=== PATIENT | female | born 1940 | race Caucasian/White ===

== ENCOUNTER 2018-03-08 16:29 | Emergency (ER) | payer MEDICARE ==
--- NOTE | 2018-03-08 17:23 | RADIOLOGY REPORT (SQ) ---
EXAM DESCRIPTION: CT HEAD WITHOUT COMPLETED DATE/TIME: 03/08/2018 5:05 pm REASON FOR STUDY: Fall--facial injury . Right cheek laceration and right eye pain. Patient states that she fell into a piece of furniture. COMPARISON: CT head 07/15/2015. TECHNIQUE: Axial images acquired through the brain without intravenous contrast. Images reviewed wi th bone, brain and subdural windows. Images stored on PACS. All CT scanners at this facility use dose modulation, iterative reconstruction, and/or weight based d osing when appropriate to reduce radiation dose to as low as reasonably achievable (ALARA). [facility]: Dose Right [facility]: CareDose [facility]: Dose Right [facility]: Teradose 4D [facility]: [employer] RADIATION DOSE: CT Rad equipment meets quality standard of care and radiation dose reduction techniq ues were employed. CTDIvol: 53.2 mGy. DLP: 1017 mGy-cm. mGy. LIMITATIONS: None. FINDINGS: VENTRICLES: Mildly prominent, probably representing parenchymal volume loss. CEREBRUM: No mass effect. No hemorrhage. No midline shift. Normal hearn/white matter differentiatio n. No evidence for acute territorial infarction. CEREBELLUM: No mass effect. No hemorrhage. No alteration of density. No evidence for acute infarct ion. EXTRAAXIAL SPACES: No fluid collections. ORBITS AND GLOBE: Symmetrical contour of the globes. The bony orbits appear intact. CALVARIUM: No depressed skull fracture. PARANASAL SINUSES: No air-fluid level. SOFT TISSUES: Soft tissue hematoma at the scalp overlying the right frontal bone. Small amount of hernandez bcutaneous emphysema anterior to the right maxillary sinus. IMPRESSION: Scalp hematoma at the right frontal bone with no underlying depressed calvarial fracture or acute intracranial hemorrhage. Small amount of subcutaneous emphysema anterior to the right maxi llary sinus, probably corresponding to known laceration. EVIDENCE OF ACUTE STROKE: NO. COMMENT: Quality ID # 436: Final reports with documentation of one or more dose reduction techniques (e.g., Automated exposure control, adjustment of the mA and/or kV according to patient size, use of iterative reconstruction technique) TECHNICAL DOCUMENTATION: JOB ID: [id number] [place]-[id number] 2010 [employer]- All Rights Reserved Reading location - IP/workstation name: [email or web address]
--- NOTE | 2018-03-08 17:28 | RADIOLOGY REPORT (SQ) ---
EXAM DESCRIPTION: CT CERVICAL SPINE WITHOUT COMPLETED DATE/TIME: 03/08/2018 5:05 pm REASON FOR STUDY: Fall--facial injury . Patient states that she fell into a piece of furniture. COMPARISON: None. TECHNIQUE: Axial images acquired through the cervical spine without intravenous contrast. Images re viewed with lung, soft tissue and bone windows. Reconstructed coronal and sagittal MPR images review ed. Images stored on PACS. All CT scanners at this facility use dose modulation, iterative reconstruction, and/or weight based d osing when appropriate to reduce radiation dose to as low as reasonably achievable (ALARA). [facility]: Dose Right [facility]: CareDose [facility]: Dose Right [facility]: Teradose 4D [facility]: [employer] RADIATION DOSE: CT Rad equipment meets quality standard of care and radiation dose reduction techniq ues were employed. CTDIvol: 8.4 mGy. DLP: 172 mGy-cm. mGy. LIMITATIONS: None. FINDINGS: ALIGNMENT: There is mild anterolisthesis of C3 on C4 and mild retrolisthesis of C4 on C5 a nd of C5 on C6. MINERALIZATION: Osteopenia. VERTEBRAL BODIES: No fractures or dislocation. DISCS: Multilevel disc space narrowing with osteophytes. FACETS, LATERAL MASSES, POSTERIOR ELEMENTS: Facet arthropathy. No fractures. No dislocation. No ac damion findings. HARDWARE: None in the spine. VISUALIZED RIBS: No fractures. LUNG APICES AND SOFT TISSUES: No significant or acute findings. IMPRESSION: Multilevel degenerative changes within the cervical spine with no evidence for acute fra cture. TECHNICAL DOCUMENTATION: JOB ID: [id number] Quality ID # [id number]: Final reports with documentation of one or more dose reduction techniques (e.g., Au tomated exposure control, adjustment of the mA and/or kV according to patient size, use of iterative reconstruction technique) 2010 [employer]- All Rights Reserved Reading location - IP/workstation name: [email or web address]
--- NOTE | 2018-03-08 17:47 | ER Document Report ---
ED Fall - General Mode of Arrival: Medic Information source: Patient TRAVEL OUTSIDE OF THE [place] 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 Patient states her right leg has been weak lately and she got her right foot caught in a magazine martinez, tripped and fell on her right elbow and hit the right side of her head twice. Patient states she previously fell 2 weeks ago due to her right leg being weak although she did not present to an emergency department. Patient also complains upper back and neck pain. She states that she normally has upper back and neck pain due to her scoliosis. Patient is currently on Xarelto. (CECILIA GARCIA) The patient did bring a bag of her medications with her. I looked through the bag and she neglected to tell me about the Ambien that she takes, or the [place] 10 mg 4 times daily that she takes on a chronic basis. ( DAO CHAN) - Related data Allergies/Adverse Reactions: aspirin [Aspirin] Allergy (Verified 10/16/12 10:57) salazar stomach codeine [Codeine] Allergy (Verified 10/16/12 10:57) itching erythromycin base [Erythromycin Base] Allergy (Verified 10/16/12 10:57) abd. pain Past Medical History - General Information source: Patient - Social History Smoking Status: Never Smoker Chew tobacco use (# tins/day): No Frequency of alcohol use: Rare Drug Abuse: None Family History: Reviewed & Not Pertinent Patient has suicidal ideation: No Patient has homicidal ideation: No - Past Medical History Cardiac Medical History: Reports: Hx Hypertension Malignancy Medical History: Reports: Hx Breast Cancer - Last chemo and radiation done in 2011 GI Medical History: Reports: Hx Gastroesophageal Reflux Disease Past Surgical History: Reports: Hx Mastectomy, Other - Right and Left Lumpectomy. 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 <CECILIA GARCIA - Last Filed: 03/08/18 17:59> EENT Medical History: Reports: Other - Glaucoma Musculoskeltal Medical History: Reports Hx Arthritis, Reports Other - Chronic pain to the neck & thoracic spine which she attributes to scoliosis <DAO CHAN - Last Filed: 03/08/18 19:32> Review of Systems - Review of Systems Constitutional: No symptoms reported EENT: See HPI, Eye pain Cardiovascular: No symptoms reported Respiratory: No symptoms reported Gastrointestinal: No symptoms reported Genitourinary: No symptoms reported Female Genitourinary: No symptoms reported Musculoskeletal: See HPI, Back pain Skin: No symptoms reported Hematologic/Lymphatic: No symptoms reported Neurological/Psychological: No symptoms reported -: Yes All other systems reviewed and negative <CECILIA GARCIA - Last Filed: 03/08/18 17:59> Physical Exam - General General appearance: Appears well, Alert In distress: None - HEENT Head: Normocephalic, Other - 2 cm laceration on her right cheek below the zygomatic arch. Zygomatic arch contains bruising and swelling. Right forehead above the eye contains a large hematoma. Eyes: Normal Conjunctiva: Normal Neck: Normal - Respiratory Respiratory status: No respiratory distress Chest status: Nontender Breath sounds: Normal Chest palpation: Normal - Cardiovascular Rhythm: Regular Heart sounds: Normal auscultation Murmur: Yes Friction rub: No Gallop: None auscultated - Abdominal Inspection: Normal Distension: No distension Bowel sounds: Normal Tenderness: Nontender Organomegaly: No organomegaly - Back Back: Normal - Extremities General upper extremity: Normal ROM General lower extremity: Normal ROM Elbow: Abrasion - Abrasion on the right elbow. - Neurological Neuro grossly intact: Yes Cognition: Normal Orientation: AAOx4 [place] Coma Scale Eye Opening: Spontaneous Tanner Coma Scale Verbal: Oriented Tanner Coma Scale Motor: Obeys Commands Tanner Coma Scale Total: 15 Speech: Normal - Psychological Associated symptoms: Normal affect, Normal mood - Skin Skin Temperature: Warm Skin Moisture: Dry Skin Color: Normal <CECILIA GARCIA - Last Filed: 03/08/18 17:59> - HEENT Eyes: No: Normal Conjunctiva: No: Normal Cornea: Flourescein stain uptake, Other - There is a very superficial small abrasion on the upper edge of the cornea just lateral to the midline. Above that area there is some irritated conjunctiva that appears to have been traumatized. There are no lacerations, punctures, or globe content protrusion. Extraocular movements intact: Yes <DAO CHAN - Last Filed: 03/08/18 19:32> - Vital signs Vitals: Temp Pulse Resp BP Pulse Ox 98.2 F 60 17 149/70 H 98 03/08/18 16:32 03/08/18 16:32 03/08/18 16:32 03/08/18 16:32 03/08/18 16:32 Course <RADHACECILIA - Last Filed: 03/08/18 17:59> - Diagnostic Test Radiology reviewed: Image reviewed, Reports reviewed - CT scan of the cervical spine shows degenerative changes without acute injury. CT scan of the head shows large hematoma in the right frontal scalp region. There is some swelling over the zygomatic region on the right and there is some subcutaneous air corresponding to the laceration over the right cheek. There are no orbital or zygomatic fractures noted. <DAO CHAN - Last Filed: 03/08/18 19:32> - Re-evaluation Re-evalutation: 03/08/18 19:31 The patient has a family member and a friend here with her at discharge and they understand the instructions about the ketorolac drop that is being dispensed the place in the right eye 1 drop every 4 hours, and a prescription for the drops will be furnished in order to continue the treatment for the next 2-3 days. (DAO CHAN) - Vital Signs Vital signs: Temp Pulse Resp BP Pulse Ox 98.2 F 60 17 149/70 H 98 03/08/18 16:32 03/08/18 16:32 03/08/18 16:32 03/08/18 16:32 03/08/18 16:32 Procedures - Eye Procedure Right Time completed: 18:40 Eye Irrigated w/ Saline (ccs): 20 Alcaine Drops Administered: Yes Acular drops administered: Right Fluorescein applied: Right Slit lamp used: No Eyes picture: 1 - Small very superficial abrasion with minimal fluorescein uptake - Laceration/Wound Repair Right Mid- Face Time completed: 19:15 Wound length (cm): 2 Wound's Depth, Shape: Linear, Irregular, Contused tissue, Other - Into the subcutaneous fat Laceration pre-procedure: Sterile drapes applied, Shur-Clens applied Anesthetic type: 1% Lidocaine w/epi Volume Anesthetic (mLs): 3 Wound explored: Clean, No foreign body removed Irrigated w/ Saline (mLs): 30 Wound Debrided: Minimal Wound Repaired With: Sutures Suture Size/Type: 5:0 Number of Sutures: 6 Layer Closure?: No Post-procedure wound care: Other - Bacitracin ointment Post-procedure NV exam normal: Yes Complications: No <DAO CHAN - Last Filed: 03/08/18 19:32> Discharge <CECILIA GARCIA - Last Filed: 03/08/18 17:59> <DAO CHAN - Last Filed: 03/08/18 19:32> - Discharge Clinical Impression: Fall Qualifiers: Encounter type: initial encounter Qualified Code(s): W19.XXXA - Unspecified fall, initial encounter Facial laceration Qualifiers: Encounter type: initial encounter Qualified Code(s): S01.81XA - Laceration without foreign body of other part of head, initial encounter Corneal abrasion Qualifiers: Encounter type: initial encounter Laterality: right Qualified Code(s): S05.01XA - Injury of conjunctiva and corneal abrasion without foreign body, right eye, initial encounter Forehead contusion Qualifiers: Encounter type: initial encounter Qualified Code(s): S00.83XA - Contusion of other part of head, initial encounter Condition: Stable Disposition: HOME, SELF-CARE Additional Instructions: Corneal Abrasion: You have a corneal abrasion, a scratch on the surface of the eye. The pain of a corneal abrasion feels like a sharp particle in the eye. Usually, antibiotics are placed in the eye to prevent infection. Occasionally, medication will be placed in the eye to dilate the pupil. This is done to relieve some of your discomfort and is only temporary. Pain medication may be required. Don't drive or operate machinery until you have the use of both your eyes. The abrasion usually is healed in one or two days. A follow-up examination to confirm healing is recommended. Call the doctor or return at once if you develop severe pain, decreasing vision, eye swelling, or purulent drainage. Facial Laceration: A laceration on the face usually heals quickly. Our treatment goal will be to avoid an unsightly scar or stitch-flowers. Your cut has been closed with the best techniques to avoid scarring, but a great deal depends on how well you protect the laceration -- and on your inherited tendency to scar. As facial cuts are usually caused by a blunt injury, it's usually best to rest for a day to avoid swelling. Do not allow any bumping or rubbing of the area. Keep the stitches dry. Follow the treatment plan the doctor has discussed with you and DO NOT DELAY getting the stitches out. Once stitches are removed, continue to protect the area from trauma and sunlight (use a sunscreen) for about six months. If any signs of infection occur (swelling, redness, increasing tenderness, red streaks, tender lumps in the neck or near the ear on the side of the laceration, or fever), see the doctor immediately. Contusion of Forehead and Face Your injury has resulted in a contusion -- a crushing of the deep tissues. No injury to important structures was detected during the physician's exam. Contusions vary in the amount of pain they cause, and in the length of time required for healing. Typically, the area will become bruised, and will remain painful to touch for two or three weeks. However, most patients are back to working and playing within a few days. After the initial period of rest and cold-packs, your symptoms (together with the doctor's recommendations) will determine how rapidly you can get back to full activity. Usually this means "do what feels okay, but don't do things that hurt." If re-examination was recommended, it's important to follow up as instructed. Call the doctor or return any time if pain increases, if swelling becomes severe, if you develop numbness or weakness in an injured extremity, or if any other alarming symptoms occur. Use ice packs to your forehead and face to help reduce the swelling. Keep the laceration clean and dressed with Neosporin or bacitracin ointment. Put the ketorolac eyedrops: 1 drop into the right eye every 4 hours for the next few days. Follow-up with your doctor this week for recheck. RETURN TO THE EMERGENCY ROOM IF ANY NEW OR WORSENING SYMPTOMS. Prescriptions: Ketorolac Tromethamine [Acular] 1 drop OD Q4 #5 ml Referrals: MARGAUX NAVA MD [Primary Care Provider] - Follow up in 3-5 days Scribe Attestation: 03/08/18 19:15 I personally performed the services described in the documentation, reviewed and edited the documentation which was dictated to the scribe in my presence, and it accurately records my words and actions. (DAO CHAN) Scribe Documentation - Scribe Written by Bailey:: Bailey Smith, 03/08/2018 17:51 acting as scribe for :: Abelardo <CECILIA GARCIA - Last Filed: 03/08/18 17:59>
[2018-03-08] MEDS ORDERED: LIDOCAINE 1%/EPINEPHRINE INJ 20 ML VIAL INJ ONE (17:53)
[2018-03-08] MEDS ORDERED: TETRACAINE HCL 0.5% OPH SOLN 2 ML OD ONE (17:55)
[2018-03-08] MEDS ORDERED: HYDROCODONE/ACETAMINOPHEN 5-325 MG TABLET PO ONE (18:27)
[2018-03-08] MEDS ORDERED: KETOROLAC TROMETHAMINE 0.45% 4 DROP/0.4 ML DROPERETTE OD ONE (18:42)
[2018-03-08 22:21] VITALS: BP 175/81
== END 2018-03-08 19:36 | disposition home or self-care (01) ==
LOC: ER 16:29
PROC: 0HQ1XZZ Repair Face Skin, External Approach (ICD-10-PCS; principal; 2018-03-08)
DX: S05.01XA Injury of conjunctiva and corneal abrasion without foreign body, right eye, initial encounter (principal); S01.411A Laceration without foreign body of right cheek and temporomandibular area, initial encounter; H57.11 Ocular pain, right eye; R51 Headache; R53.1 Weakness; M54.6 Pain in thoracic spine; M54.2 Cervicalgia; M41.9 Scoliosis, unspecified; W01.0XXA Fall on same level from slipping, tripping and stumbling without subsequent striking against object, initial encounter; I10 Essential (primary) hypertension; Z79.01 Long term (current) use of anticoagulants; Z86.718 Personal history of other venous thrombosis and embolism; Z79.899 Other long term (current) drug therapy
CPT/HCPCS: 99283; 70450; 72125; 12011; A9270 ×2; J3490

== ENCOUNTER 2018-03-24 19:28 | Emergency (ER) | payer MEDICARE ==
--- NOTE | 2018-03-24 20:46 | RADIOLOGY REPORT (SQ) ---
EXAM DESCRIPTION: CT CERVICAL SPINE WITHOUT; CT HEAD WITHOUT COMPLETED DATE/TIME: 03/24/2018 8:27 pm REASON FOR STUDY: fall COMPARISON: See below. TECHNIQUE: Axial images acquired through the brain and cervical spine without intravenous contrast. Images reviewed with brain, subdural, lung, soft tissue and bone windows. Reconstructed coronal and sagittal MPR images reviewed. Images stored on PACS. All CT scanners at this facility use dose modulation, iterative reconstruction, and/or weight based d osing when appropriate to reduce radiation dose to as low as reasonably achievable (ALARA). [facility]: Dose Right [facility]: CareDose [facility]: Dose Right [facility]: Teradose 4D [facility]: [employer] RADIATION DOSE: CT Rad equipment meets quality standard of care and radiation dose reduction techniq ues were employed. CTDIvol: 11.0 mGy. DLP: 260 mGy-cm.; CT Rad equipment meets quality standard of ca re and radiation dose reduction techniques were employed. CTDIvol: 48.6 mGy. DLP: 880 mGy-cm. mGy. LIMITATIONS: None. FINDINGS: Brain: 03/08/2018 comparison. Prominent right frontal scalp swelling and hematoma, progres sive or recurrent compared to prior. This now measures almost 4 cm transverse dimension. No underly ing fracture. No intracranial hemorrhage. No hydrocephalus. Cervical spine: 03/08/2018 prior. Mild chronic degenerative anterolisthesis at C3-4. Multilevel disc disease below this. Multilevel facet arthropathy. Osteopenia. No fracture. Clear lung apices. IMPRESSION: 1. Right frontal soft tissue scalp hematoma. This may be a recurrent hematoma which is larger compared to 03/08/2016, presumably related to repeat injury to the same area. No underlying sku ll fracture or intracranial hemorrhage. 2. Cervical spondylosis without fracture. TECHNICAL DOCUMENTATION: JOB ID: [id number] Quality ID # [id number]: Final reports with documentation of one or more dose reduction techniques (e.g., Au tomated exposure control, adjustment of the mA and/or kV according to patient size, use of iterative reconstruction technique) 2010 [employer]- All Rights Reserved Reading location - IP/workstation name: [email or web address]
--- NOTE | 2018-03-24 20:55 | ER Document Report ---
ED General - General Chief Complaint: Fall Stated Complaint: FALL Time Seen by Provider: 03/24/18 19:59 Mode of Arrival: Medic Information source: Patient Notes: 77-year-old female history of multiple falls including recent fall with traumatic hematoma of the right frontal. Patient notes that she fell again striking her right frontal aspect. She denies any numbness weakness denies any loss of bowel or bladder function admits to headache. Patient has a history of cervical fracture notes mild cervical tenderness TRAVEL OUTSIDE OF THE [place] IN LAST 30 DAYS: No - HPI Onset: Just prior to arrival Onset/Duration: Sudden Quality of pain: Achy Severity: Mild Pain Level: 1 Associated symptoms: Headache Exacerbated by: Denies Relieved by: Denies Similar symptoms previously: Yes Recently seen / treated by doctor: Yes - Related Data Allergies/Adverse Reactions: aspirin [Aspirin] Allergy (Verified 10/16/12 10:57) salazar stomach codeine [Codeine] Allergy (Verified 10/16/12 10:57) itching erythromycin base [Erythromycin Base] Allergy (Verified 10/16/12 10:57) abd. pain Past Medical History - Social History Smoking Status: Never Smoker Cigarette use (# per day): No Chew tobacco use (# tins/day): No Smoking Education Provided: No Frequency of alcohol use: None Drug Abuse: None Family History: Reviewed & Not Pertinent Patient has suicidal ideation: No Patient has homicidal ideation: No - Past Medical History Cardiac Medical History: Reports: Hx Hypertension Renal/ Medical History: Denies: Hx Peritoneal Dialysis Malignancy Medical History: Reports: Hx Breast Cancer - Last chemo and radiation done in 2011 GI Medical History: Reports: Hx Gastroesophageal Reflux Disease Musculoskeletal Medical History: Reports Hx Arthritis Psychiatric Medical History: Reports: Hx Depression - +anxiety Past Surgical History: Reports: Hx Breast Surgery - cancer related, lympn node removal, Hx Mastectomy, Other - Right and Left Lumpectomy. 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 Review of Systems - Review of Systems Notes: REVIEW OF SYSTEMS: CONSTITUTIONAL : Denies fever, chills, or sweats. Denies recent illness. EENT: Denies eye, ear, throat, or mouth pain or symptoms. Denies nasal or sinus congestion or discharge. Denies throat, tongue, or mouth swelling or difficulty swallowing. CARDIOVASCULAR: Denies chest pain. Denies palpitations or racing or irregular heart beat. Denies ankle edema. RESPIRATORY: Denies cough, cold, or chest congestion. Denies shortness of breath, difficulty breathing, or wheezing. GASTROINTESTINAL: Denies abdominal pain or distention. Denies nausea, vomiting , or diarrhea. Denies blood in vomitus, stools, or per rectum. Denies black, tarry stools. Denies constipation. GENITOURINARY: Denies difficulty urinating, painful urination, burning, frequency, blood in urine, or discharge. FEMALE GENITOURINARY: Denies vaginal bleeding, heavy or abnormal periods, irregular periods. Denies vaginal discharge or odor. MUSCULOSKELETAL: Denies back or neck pain or stiffness. Denies joint pain or swelling. SKIN: Denies rash, lesions or sores. HEMATOLOGIC : Admits to frontal head bruising LYMPHATIC: Denies swollen, enlarged glands. NEUROLOGICAL: Admits to chronic falls head injury PSYCHIATRIC: Denies anxiety or stress. Denies depression, suicidal ideation, or homicidal ideation. ALL OTHER SYSTEMS REVIEWED AND NEGATIVE. PHYSICAL EXAMINATION: GENERAL: Well-appearing, well-nourished and in no acute distress. HEAD: Large right frontal hematoma EYES: Pupils equal round and reactive to light, extraocular movements intact, conjunctiva are normal. ENT: Nares patent, oropharynx clear without exudates. Moist mucous membranes. NECK: Normal range of motion, supple without lymphadenopathy LUNGS: Breath sounds clear to auscultation bilaterally and equal. No wheezes rales or rhonchi. HEART: Regular rate and rhythm without murmurs ABDOMEN: Soft, nontender, nondistended abdomen. No guarding, no rebound. No masses appreciated. Female : deferred Musculoskeletal: Normal range of motion, no pitting or edema. No cyanosis. NEUROLOGICAL: Cranial nerves grossly intact. Normal speech, normal gait. Normal sensory, motor exams PSYCH: Normal mood, normal affect. SKIN: Large hematoma of the right frontal aspect acute on chronic Dictation was performed using [employer] voice recognition software Physical Exam - Vital signs Vitals: Temp Pulse Resp BP Pulse Ox 98.1 F 60 14 142/68 H 99 03/24/18 19:52 03/24/18 19:52 03/24/18 19:52 03/24/18 19:52 03/24/18 19:52 Course - Re-evaluation Re-evalutation: 03/24/18 20:54 Patient emergently sent for CT head and neck she refused to wear c-collar, she understood risks and benefits, CT imaging did note worsening hematoma otherwise she looks well patient given pain control Patient is a significant fall risk I explained this to her she states she understands risks and benefits have been discussed After performing a Medical Screening Examination, I estimate there is LOW risk for INCRANIAL HEMORRHAGE thus I consider the discharge disposition reasonable. I have reevaluated this patient multiple times and no significant life threatening changes are noted. The patient and I have discussed the diagnosis and risks, and we agree with discharging home with close follow-up with the understanding that symptoms and presentations can change. We also discussed returning to the Emergency Department immediately if new or worsening symptoms occur. We have discussed the symptoms which are most concerning (e.g., changing or worsening symptoms, new numbness or weakness, vomiting, fever) that necessitate immediate return. - Vital Signs Vital signs: Temp Pulse Resp BP Pulse Ox 98.1 F 60 14 142/68 H 99 03/24/18 19:52 03/24/18 19:52 03/24/18 19:52 03/24/18 19:52 03/24/18 19:52 - Diagnostic Test Radiology reviewed: Image reviewed, Reports reviewed Discharge - Discharge Clinical Impression: Fall Qualifiers: Encounter type: initial encounter Qualified Code(s): W19.XXXA - Unspecified fall, initial encounter Hematoma of frontal scalp Qualifiers: Encounter type: initial encounter Qualified Code(s): S00.03XA - Contusion of scalp, initial encounter Condition: Stable Disposition: HOME, SELF-CARE Instructions: Head Injury Precautions ([facility]) Referrals: MARGAUX NAVA MD [Primary Care Provider] - Follow up tomorrow
[2018-03-24] MEDS ORDERED: DIPHENHYDRAMINE HCL 50 MG CAPSULE PO ONE (21:13)
[2018-03-24] MEDS ORDERED: PROCHLORPERAZINE MALEATE 10 MG TABLET PO ONE (21:13)
[2018-03-24 22:36] VITALS: BP 173/89
== END 2018-03-24 22:36 | disposition home or self-care (01) ==
LOC: ER 19:28
DX: S00.03XA Contusion of scalp, initial encounter (principal); W19.XXXA Unspecified fall, initial encounter; Z91.81 History of falling; Z88.3 Allergy status to other anti-infective agents; Z88.6 Allergy status to analgesic agent; I10 Essential (primary) hypertension; Z85.3 Personal history of malignant neoplasm of breast
CPT/HCPCS: 99284; 70450; 72125; L0120; A9270; S0183

== ENCOUNTER 2018-05-12 14:49 | Inpatient (IN) | payer MEDICARE ==
[2018-05-12] MEDS ORDERED: NORMAL SALINE 1000 ML 1,000 ML IV ONE (15:17)
--- NOTE | 2018-05-12 15:19 | ER Document Report ---
ED Medical Screen (RME) - General Chief Complaint: Rectal Bleeding Stated Complaint: BLOOD CLOTS IN STOOL TRAVEL OUTSIDE OF THE [place] IN LAST 30 DAYS: No - HPI Notes: 05/12/18 15:19 Patient is a 77-year-old female with a history of hypertension, previous breast cancer and status post lumpectomy, arthritis, scoliosis who presents to the ED complaining of rectal bleeding that began early this morning around 0200. Patient states that she has had dark black stool previously, but is now developed into this. No history of alcohol abuse. She has not had any rectal pain associated. Denies any headache, fever, URI, sore throat, chest pain, palpitations, syncope, cough, shortness of breath, wheeze, dyspnea, abdominal pain, nausea/vomiting/diarrhea, urinary retention, dysuria, hematuria, loss of control of bowel or bladder, numbness/tingling, saddle anesthesia, muscle paralysis, or rash. I have treated and performed a rapid initial assessment of this patient. A comprehensive ED assessment and evaluation of the patient, analysis of test results and completion of medical decision making process will be conducted by additional ED providers. PHYSICAL EXAMINATION: GENERAL: Well-appearing, well-nourished and in no acute distress. A&Ox4. Answers questions appropriately. LUNGS: Breath sounds clear to auscultation bilaterally and equal. No wheezes rales or rhonchi. HEART: Regular rate and rhythm without murmurs, rubs, gallops. ABDOMEN: Soft, nondistended abdomen. No guarding, no rebound. Normal bowel sounds present. No CVA tenderness bilaterally. Extremities: No cyanosis, clubbing, or edema b/l. PSYCH: Normal mood, normal affect. Skin: mild pallor - Related Data Allergies/Adverse Reactions: aspirin [Aspirin] Allergy (Verified 05/12/18 15:15) salazar stomach codeine [Codeine] Allergy (Verified 05/12/18 15:15) itching erythromycin base [Erythromycin Base] Allergy (Verified 05/12/18 15:15) abd. pain Penicillins Allergy (Verified 05/12/18 15:15) Past Medical History - Social History Chew tobacco use (# tins/day): No Frequency of alcohol use: None Drug Abuse: None - Past Medical History Cardiac Medical History: Reports: Hx Hypertension Renal/ Medical History: Denies: Hx Peritoneal Dialysis Malignancy Medical History: Reports: Hx Breast Cancer - Last chemo and radiation done in 2011 GI Medical History: Reports: Hx Gastroesophageal Reflux Disease Musculoskeltal Medical History: Reports Hx Arthritis Psychiatric Medical History: Reports: Hx Depression - +anxiety Past Surgical History: Reports: Hx Breast Surgery - cancer related, lympn node removal, Hx Mastectomy, Other - Right and Left Lumpectomy. 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 Physical Exam - Vital signs Vitals: Temp Pulse Resp BP Pulse Ox 97.8 F 92 16 124/77 99 05/12/18 15:00 05/12/18 15:00 05/12/18 15:00 05/12/18 15:00 05/12/18 15:00 Course - Vital Signs Vital signs: Temp Pulse Resp BP Pulse Ox 97.8 F 92 16 124/77 99 05/12/18 15:00 05/12/18 15:00 05/12/18 15:00 05/12/18 15:00 05/12/18 15:00 Doctor's Discharge - Discharge Referrals: MARGAUX NAVA MD [Primary Care Provider] - Follow up as needed
[2018-05-12] MEDS ORDERED: PANTOPRAZOLE SODIUM 40 MG VIAL IV ONE ×2 (17:08→19:15)
[2018-05-12 17:18] LABS: ABSOLUTE BASOPHILS # (AUTO) 0.1 10^3/uL (0.0-0.2); ABSOLUTE EOSINOPHILS # (AUTO) 0.1 10^3/uL (0.0-0.6); ABSOLUTE LYMPHOCYTES (AUTO) 1.3 10^3/uL (0.5-4.7); ABSOLUTE MONOCYTES (AUTO) 0.7 10^3/uL (0.1-1.4); ABSOLUTE NEUT (AUTO) 5.9 10^3/uL (1.7-8.2); BASOPHILS % (AUTO) 0.9 % (0-2); EOSINOPHILS % (AUTO) 1.2 % (0-6); HEMATOCRIT 33.1 % (36.0-47.0); HEMOGLOBIN 11.3 g/dL (12.0-15.5); MEAN CORPUSCULAR HGB CONC 34.2 g/dL (32.0-36.0); MEAN CORPUSCULAR VOLUME 93 fl (80-97); MONOCYTES % (AUTO) 8.9 % (3-13); PLATELET COUNT 442 10^3/uL (150-450); RED BLOOD COUNT 3.55 10^6/uL (3.72-5.28); RED CELL DISTRIBUTION WIDTH 14.8 % (11.5-14.0); TOTAL CELLS COUNTED % (AUTO) 100 %
[2018-05-12 17:39] LABS: ALANINE AMINOTRANSFERASE 14 U/L (9-52); ALBUMIN 4.8 g/dL (3.5-5.0); ALKALINE PHOSPHATASE 51 U/L (38-126); ANION GAP 14 (5-19); ASPARTATE AMINO TRANSFERASE 35 U/L (14-36); BILIRUBIN,DIRECT 0.3 mg/dL (0.0-0.4); BILIRUBIN,TOTAL 0.5 mg/dL (0.2-1.3); BLOOD UREA NITROGEN 27 mg/dL (7-20); CALCIUM 9.3 mg/dL (8.4-10.2); CARBON DIOXIDE 25 mmol/L (22-30); CHLORIDE 100 mmol/L (98-107); GLUCOSE 109 mg/dL (75-110); POTASSIUM 4.2 mmol/L (3.6-5.0); SODIUM 138.7 mmol/L (137-145); TOTAL PROTEIN 8.1 g/dL (6.3-8.2)
--- NOTE | 2018-05-12 17:56 | ER Document Report ---
ED General - General Chief Complaint: Rectal Bleeding Stated Complaint: BLOOD CLOTS IN STOOL Time Seen by Provider: 05/12/18 15:23 TRAVEL OUTSIDE OF THE [place] IN LAST 30 DAYS: No - HPI Notes: 77-year-old female presents with about 4 episodes of bright red blood per rectum today. Started with loose bowel movement this morning and blood after the bowel movement with dark stools. She has some mild cramping abdominal pain. Denies any lightheadedness or dizziness. No chest pain or shortness of breath. She is on Xarelto for left arm DVT. No similar symptoms in the past. Had a normal colonoscopy about 2 years ago. Has had a hemorrhoid removed by her primary care physician several years ago. - Related Data Allergies/Adverse Reactions: aspirin [Aspirin] Allergy (Verified 05/12/18 15:15) salazar stomach codeine [Codeine] Allergy (Verified 05/12/18 15:15) itching erythromycin base [Erythromycin Base] Allergy (Verified 05/12/18 15:15) abd. pain Penicillins Allergy (Verified 05/12/18 15:15) Past Medical History - Social History Smoking Status: Never Smoker Chew tobacco use (# tins/day): No Frequency of alcohol use: None Drug Abuse: None Family History: Reviewed & Not Pertinent Patient has suicidal ideation: No Patient has homicidal ideation: No - Past Medical History Cardiac Medical History: Reports: Hx Hypertension Renal/ Medical History: Denies: Hx Peritoneal Dialysis Malignancy Medical History: Reports: Hx Breast Cancer - Last chemo and radiation done in 2011 GI Medical History: Reports: Hx Gastroesophageal Reflux Disease Musculoskeletal Medical History: Reports Hx Arthritis Psychiatric Medical History: Reports: Hx Depression - +anxiety Past Surgical History: Reports: Hx Breast Surgery - cancer related, lympn node removal, Hx Mastectomy, Other - Right and Left Lumpectomy. 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 Review of Systems - Review of Systems Notes: Constitutional: Negative for fever. HENT: Negative for sore throat. Eyes: Negative for visual changes. Cardiovascular: Negative for chest pain. Respiratory: Negative for shortness of breath. Gastrointestinal: Positive for abdominal pain, negative for vomiting or diarrhea , positive for rectal bleeding. Genitourinary: Negative for dysuria. Musculoskeletal: Negative for back pain. Skin: Negative for rash. Neurological: Negative for headaches, weakness or numbness. 10 point ROS negative except as marked above and in HPI. Physical Exam - Vital signs Vitals: Temp Pulse Resp BP Pulse Ox 97.8 F 92 16 124/77 99 05/12/18 15:00 05/12/18 15:00 05/12/18 15:00 05/12/18 15:00 05/12/18 15:00 - Notes Notes: PHYSICAL EXAMINATION: GENERAL: Well-appearing, well-nourished and in no acute distress. HEAD: Atraumatic, normocephalic. EYES: Pupils equal round and reactive to light, extraocular movements intact, conjunctiva are normal. ENT: nares patent, oropharynx clear without exudates. Moist mucous membranes. NECK: Normal range of motion, supple without lymphadenopathy LUNGS: Breath sounds clear to auscultation bilaterally and equal. No wheezes rales or rhonchi. HEART: Regular rate and rhythm, no chest wall tenderness ABDOMEN: Soft, nontender, normoactive bowel sounds. No guarding, no rebound. No masses appreciated. EXTREMITIES: Normal range of motion, no pitting or edema. No cyanosis. Chronic lymphedema left arm NEUROLOGICAL: Cranial nerves grossly intact. Normal speech, normal gait. Normal sensory and motor exams. PSYCH: Normal mood, normal affect. SKIN: Warm, Dry, normal turgor, no rashes or lesions noted. Course - Re-evaluation Re-evalutation: 05/12/18 17:57 Patient brought in a sample from home of stool which shows dark blood with clots. Hemoglobin slightly low at 11.3. BUN elevated at 27. Given Protonix and fluids. Discussed with Dr. Hankins, surgery if needed for endoscopy. Dr. Montelongo, GI comes body component engineer tomorrow morning. Discussed with hospitalist for admission. Patient updated. Vital signs stable. - Vital Signs Vital signs: Temp Pulse Resp BP Pulse Ox 97.8 F 92 16 124/77 99 05/12/18 15:00 05/12/18 15:00 05/12/18 15:00 05/12/18 15:00 05/12/18 15:00 - Laboratory Result Diagrams: 05/12/18 16:46 05/12/18 16:46 Laboratory results interpreted by me: 05/12/18 05/12/18 16:46 16:46 RBC 3.55 L Hgb 11.3 L Hct 33.1 L RDW 14.8 H BUN 27 H Discharge - Discharge Clinical Impression: GI bleed Qualifiers: GI bleed type/associated pathology: unspecified gastrointestinal hemorrhage type Qualified Code(s): K92.2 - Gastrointestinal hemorrhage, unspecified Disposition: ADMITTED INPATIENT Admitting Provider: Hospitalist Unit Admitted: Medical Floor Referrals: MARGAUX NAVA MD [Primary Care Provider] - Follow up as needed
[2018-05-12] MEDS ORDERED: DEXTROSE 50%-WATER 25 GM/50 ML DISP.SYRIN IV PRN ×2 (18:58)
[2018-05-12] MEDS ORDERED: GLUCAGON,HUMAN RECOMB 1 MG INJ SUBCUT PRN (18:58)
[2018-05-12] MEDS ORDERED: DEXTROSE 40% GEL 15 GM TUBE PO PRN ×2 (18:58)
--- NOTE | 2018-05-12 19:22 | EKG REPORT ---
SEVERITY:- ABNORMAL ECG - ECTOPIC ATRIAL RHYTHM SHORT UT INTERVAL, ACCELERATED AV CONDUCTION LEFT VENTRICULAR HYPERTROPHY : Confirmed by: Tenzin Mccord MD 12-May-2018 19:21:05
[2018-05-12] MEDS ORDERED: LORAZEPAM 1 MG TABLET PO PRN (19:34)
--- NOTE | 2018-05-12 19:40 | PDOC H&P ---
History of Present Illness Admission Date/PCP: 05/12/18 18:21 MARGAUX NAVA MD Patient complains of: BBPR History of Present Illness: KATYA BANKS is a 77 year old female past medical history of diverticulosis, hypertension, hemorrhoid status post resection, left breast cancer in 2001 status post chemo-radiation and lumpectomy, left upper extremity lymphedema due to left breast cancer lumpectomy, left humeral fracture November 2017, left upper extremity DVT post fracture currently on Xarelto,osteoporosis, chronic lower back pain and constipation caused by chronic opiate and muscle relaxant use for low back pain. Pt presents with about 4 episodes of bright red blood per rectum today. Started with loose bowel movement this morning and blood after the bowel movement with dark stools. She has some mild cramping abdominal pain. Denies any lightheadedness or dizziness. She is on Xarelto for left arm DVT. No similar symptoms in the past. Had a normal colonoscopy about 2 years ago. Past Medical History Cardiac Medical History: Reports: Hypertension Malignancy Medical History: Reports: Breast Cancer - Last chemo and radiation done in 2011 GI Medical History: Reports: Gastroesophageal Reflux Disease Musculoskeltal Medical History: Reports: Arthritis Psychiatric Medical History: Reports: Depression - +anxiety Hematology: Denies: Anemia, Sickle Cell Disease Past Surgical History Past Surgical History: Reports: Mastectomy, Other - Right and Left Lumpectomy. 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 Denies: Amputation Social History Smoking Status: Never Smoker Family History Family History: Reviewed & Not Pertinent Parental Family History Reviewed: Yes Children Family History Reviewed: Yes Sibling(s) Family History Reviewed.: Yes Medication/Allergy Home Medications: Clindamycin HCl [Cleocin 150 Mg Capsule] 150 mg PO DAILY 10/16/12 Duloxetine HCl [Cymbalta 30 Mg Capsule.Dr] 30 mg PO 10/16/12 Levothyroxine Sodium [Synthroid 100 Mcg Tablet] 100 mcg PO DAILY 10/16/12 Lorazepam 1 mg PO PRN PRN 10/16/12 Losartan Potassium [Cozaar 50 Mg Tablet] 50 mg PO DAILY 10/16/12 Pantoprazole Sodium [Protonix] 40 mg PO 10/16/12 Pregabalin [Lyrica] 100 mg PO DAILY 10/16/12 Zolpidem Tartrate [Ambien CR 6.25 mg Tablet] 6.25 mg PO DAILY 10/16/12 Meclizine HCl [Antivert] 25 mg PO QID #30 tablet 07/15/15 Ketorolac Tromethamine [Acular] 1 drop OD Q4 #5 ml 03/08/18 Allergies/Adverse Reactions: aspirin [Aspirin] Allergy (Verified 05/12/18 15:15) salazar stomach codeine [Codeine] Allergy (Verified 05/12/18 15:15) itching erythromycin base [Erythromycin Base] Allergy (Verified 05/12/18 15:15) abd. pain Penicillins Allergy (Verified 05/12/18 15:15) Review of Systems Constitutional: ABSENT: chills, fever(s), headache(s), weight gain, weight loss Eyes: ABSENT: visual disturbances Ears: ABSENT: hearing changes Cardiovascular: ABSENT: chest pain, dyspnea on exertion, edema, orthropnea, palpitations Respiratory: ABSENT: cough, hemoptysis Gastrointestinal: PRESENT: as per HPI, abdominal pain, constipation. ABSENT: diarrhea, hematemesis, hematochezia, nausea, vomiting Genitourinary: ABSENT: dysuria, hematuria Musculoskeletal: ABSENT: joint swelling Integumentary: ABSENT: rash, wounds Neurological: ABSENT: abnormal gait, abnormal speech, confusion, dizziness, focal weakness, syncope Psychiatric: ABSENT: anxiety, depression, homidical ideation, suicidal ideation Endocrine: ABSENT: cold intolerance, heat intolerance, polydipsia, polyuria Hematologic/Lymphatic: ABSENT: easy bleeding, easy bruising Physical Exam Vital Signs: Temp Pulse Resp BP Pulse Ox 97.8 F 92 16 124/77 99 05/12/18 15:00 05/12/18 15:00 05/12/18 15:00 05/12/18 15:00 05/12/18 15:00 General appearance: PRESENT: no acute distress, well-developed, well-nourished Head exam: PRESENT: atraumatic, normocephalic Eye exam: PRESENT: conjunctiva pink, EOMI, PERRLA. ABSENT: scleral icterus Ear exam: PRESENT: normal external ear exam Mouth exam: PRESENT: moist, tongue midline Neck exam: ABSENT: carotid bruit, JVD, lymphadenopathy, thyromegaly Respiratory exam: PRESENT: clear to auscultation tiffany. ABSENT: rales, rhonchi, wheezes Cardiovascular exam: PRESENT: RRR. ABSENT: diastolic murmur, rubs, systolic murmur Pulses: PRESENT: normal dorsalis pedis pul Vascular exam: PRESENT: normal capillary refill GI/Abdominal exam: PRESENT: normal bowel sounds, soft. ABSENT: distended, guarding, mass, organolmegaly, rebound, tenderness Rectal exam: PRESENT: deferred Extremities exam: PRESENT: full ROM. ABSENT: calf tenderness, clubbing, pedal edema Neurological exam: PRESENT: alert, awake, oriented to person, oriented to place , oriented to time, oriented to situation, CN II-XII grossly intact. ABSENT: motor sensory deficit Psychiatric exam: PRESENT: appropriate affect, normal mood. ABSENT: homicidal ideation, suicidal ideation Skin exam: PRESENT: dry, intact, warm. ABSENT: cyanosis, rash Assessment & Plan - Diagnosis (1) GI bleed Qualifiers: GI bleed type/associated pathology: unspecified gastrointestinal hemorrhage type Qualified Code(s): K92.2 - Gastrointestinal hemorrhage, unspecified Is this a current diagnosis for this admission?: Yes Plan: Patient has history of diverticulosis, which could possibly be the source of bleeding. Vitals stable. Hemoglobin 11.3. Admit to IMCU for close monitoring. Monitor vitals. Monitor for any active bleeding. Transfuse as needed. Surgery consulted for possible EGD and colonoscopy. N.p.o. after midnight. Started on PPI (2) HTN (hypertension) Is this a current diagnosis for this admission?: Yes Plan: Normotensive,euvolemic. Restart home antihypertensive medications when clinically appropriate (3) History of diverticulosis Is this a current diagnosis for this admission?: Yes Plan: As per problem #1 (4) History of breast cancer in female Is this a current diagnosis for this admission?: Yes Plan: Outpatient oncology follow-up (5) History of DVT (deep vein thrombosis) Is this a current diagnosis for this admission?: Yes Plan: Left upper extremity DVT. Hold Xarelto due to acute GI bleed (6) Constipation Plan: Start on docusate and bisacodyl (7) Chronic lower back pain Is this a current diagnosis for this admission?: Yes Plan: Restart hydrocodone and tizanidine, duloxetine. Physical therapy (8) Lymphedema Plan: Left upper extremity due to complication of breast cancer. Restart clindamycin. Patient states that she has been on chronic clindamycin for lymphedema flare
[2018-05-12 19:43] LABS: APPEARANCE,URINE CLEAR; BILIRUBIN,URINE NEGATIVE (NEGATIVE); COLOR,URINE YELLOW; GLUCOSE, URINE NEGATIVE (NEGATIVE); KETONES,URINE NEGATIVE (NEGATIVE); LEUKOCYTE ESTERASE,URINE NEGATIVE (NEGATIVE); NITRITE,URINE NEGATIVE (NEGATIVE); PROTEIN,URINE NEGATIVE (NEGATIVE); URINE SPECIFIC GRAVITY 1.016; UROBILINOGEN,URINE NEGATIVE mg/dL (<2.0)
[2018-05-12] MEDS ORDERED: ZOLPIDEM TARTRATE 6.25 MG PO SCH (19:45)
[2018-05-12] MEDS: MECLIZINE HCL 25 MG TABLET PO SCH (21:22)
[2018-05-12] MEDS: ZOLPIDEM TARTRATE 5 MG TABLET PO SCH (21:22)
[2018-05-12] MEDS: DULOXETINE HCL 30 MG CAPSULE.DR PO SCH (21:22)
[2018-05-12] MEDS: ATORVASTATIN CALCIUM 20 MG TABLET PO SCH (21:22)
[2018-05-12] MEDS: TIZANIDINE HCL 4 MG TABLET PO SCH (21:22)
[2018-05-12] MEDS: DEXTROSE 5%-NORMAL SALINE 1,000 ML IV PRN (21:36)
[2018-05-13 02:17] LABS: HEMATOCRIT 23.3 % (36.0-47.0); MEAN CORPUSCULAR HGB CONC 34.3 g/dL (32.0-36.0); MEAN CORPUSCULAR VOLUME 94 fl (80-97); PLATELET COUNT 321 10^3/uL (150-450); RED BLOOD COUNT 2.49 10^6/uL (3.72-5.28); RED CELL DISTRIBUTION WIDTH 14.9 % (11.5-14.0); WHITE BLOOD COUNT 8.2 10^3/uL (4.0-10.5)
[2018-05-13] MEDS: HYDROCOD/ACETAMIN 7.5-325 MG/15 ML ORAL SOLN UDCUP PO PRN ×2 (02:41→12:23)
[2018-05-13] MEDS: LEVOTHYROXINE SODIUM 0.1 MG TABLET PO SCH (05:26)
[2018-05-13 05:31] LABS: ABSOLUTE BASOPHILS # (AUTO) 0.1 10^3/uL (0.0-0.2); ABSOLUTE EOSINOPHILS # (AUTO) 0.1 10^3/uL (0.0-0.6); ABSOLUTE LYMPHOCYTES (AUTO) 1.5 10^3/uL (0.5-4.7); ABSOLUTE MONOCYTES (AUTO) 0.7 10^3/uL (0.1-1.4); BASOPHILS % (AUTO) 0.9 % (0-2); EOSINOPHILS % (AUTO) 1.5 % (0-6); HEMATOCRIT 21.2 % (36.0-47.0); LYMPHOCYTES % (AUTO) 20.4 % (13-45); MEAN CORPUSCULAR HGB CONC 34.6 g/dL (32.0-36.0); MEAN CORPUSCULAR VOLUME 92 fl (80-97); PLATELET COUNT 299 10^3/uL (150-450); RED BLOOD COUNT 2.29 10^6/uL (3.72-5.28); RED CELL DISTRIBUTION WIDTH 14.5 % (11.5-14.0); SEGMENTED NEUTROPHILS % (AUTO) 67.2 % (42-78); TOTAL CELLS COUNTED % (AUTO) 100 %; WHITE BLOOD COUNT 7.4 10^3/uL (4.0-10.5)
[2018-05-13 05:34] LABS: HEMOGLOBIN 7.3 g/dL (12.0-15.5)
[2018-05-13 05:35] LABS: ALANINE AMINOTRANSFERASE 24 U/L (9-52); ALBUMIN 2.9 g/dL (3.5-5.0); ALKALINE PHOSPHATASE 37 U/L (38-126); ANION GAP 6 (5-19); ASPARTATE AMINO TRANSFERASE 16 U/L (14-36); BILIRUBIN,DIRECT 0.2 mg/dL (0.0-0.4); BILIRUBIN,TOTAL 0.3 mg/dL (0.2-1.3); BLOOD UREA NITROGEN 23 mg/dL (7-20); CALCIUM 8.2 mg/dL (8.4-10.2); CARBON DIOXIDE 24 mmol/L (22-30); CHLORIDE 108 mmol/L (98-107); GLUCOSE 139 mg/dL (75-110); SODIUM 138.1 mmol/L (137-145); TOTAL PROTEIN 5.1 g/dL (6.3-8.2)
--- NOTE | 2018-05-13 07:07 | Progress Note ---
Provider Note Provider Note: 05/13/18, 9717. I was never contacted about a consultation on this pt. I am going off shift at 0700, and Dr Diggs is covering. Dr. Diggs does not perform endoscopy. If endoscopy is needed, I suggest a gastroenterology consultation. This has been conveyed to the nursing staff.
[2018-05-13] MEDS: PANTOPRAZOLE SODIUM 40 MG VIAL IV SCH (09:42)
[2018-05-13] MEDS: DULOXETINE HCL 30 MG CAPSULE.DR PO SCH ×2 (09:42→22:18)
[2018-05-13] MEDS: MECLIZINE HCL 25 MG TABLET PO SCH ×4 (09:42→22:18)
[2018-05-13] MEDS ORDERED: LORAZEPAM 0.5 MG TABLET PO PRN (11:03)
--- NOTE | 2018-05-13 11:09 | PDOC CONSULTATION ---
History of Present Illness Admission Date/PCP: 05/12/18 18:21 MARGAUX NAVA MD Patient complains of: bloody BM History of Present Illness: KATYA BANKS is a 77 year old female with history of DVT left arm on Xarelto noted blood staining of stool About 3 days ago and she then stopped taking Xarelto. She has been constipated and took about 5 pills of Docusate after noting blood in her stools. Yesterday had a more bloodey BM and went to ED.Her HB 11.3 and VS stable with no episode of lightheadedness.BM last night without gross blood but this am had another gross bloody BM. Her VS remained stable but her HB is 7.3. Past Medical History Cardiac Medical History: Reports: Hypertension Malignancy Medical History: Reports: Breast Cancer - Last chemo and radiation done in 2011 GI Medical History: Reports: Gastroesophageal Reflux Disease Musculoskeltal Medical History: Reports: Arthritis Psychiatric Medical History: Reports: Depression - +anxiety Hematology: Denies: Anemia, Sickle Cell Disease Past Surgical History Past Surgical History: Reports: Mastectomy, Other - Right and Left Lumpectomy. 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 Denies: Amputation Social History Smoking Status: Former Smoker Number of Years Smokin Last Time Smoked: 1988 Frequency of Alcohol Use: Rare Hx Recreational Drug Use: No Hx Prescription Drug Abuse: No Family History Family History: Reviewed & Not Pertinent Parental Family History Reviewed: Yes Children Family History Reviewed: Yes - noncontributory Sibling(s) Family History Reviewed.: No Medication/Allergy Home Medications: Clindamycin HCl [Cleocin 300 mg Capsule] 300 mg PO DAILY 05/12/18 Cyclobenzaprine HCl 10 mg PO Q8HP PRN 05/12/18 Duloxetine HCl [Cymbalta] 90 mg PO DAILY 05/12/18 Hydrocodone Bit/Acetaminophen [Hydrocodon-Acetaminophn 10-325] 1 each PO QIDP PRN 05/12/18 Levothyroxine Sodium [Synthroid] 50 mcg PO DAILY 05/12/18 Lorazepam [Ativan 0.5 mg Tablet] 0.5 mg PO Q12HP PRN 05/12/18 Losartan Potassium [Cozaar 25 mg Tablet] 75 mg PO DAILY 05/12/18 Pravastatin Sodium [Pravachol] 20 mg PO DAILY 05/12/18 Rabeprazole Sodium [Aciphex] 20 mg PO Q12 05/12/18 Ranitidine HCl 150 mg PO Q12HP PRN 05/12/18 Zolpidem Tartrate [Ambien] 10 mg PO QHS 05/12/18 Allergies/Adverse Reactions: aspirin [Aspirin] Allergy (Verified 05/12/18 15:15) salazar stomach codeine [Codeine] Allergy (Verified 05/12/18 15:15) itching erythromycin base [Erythromycin Base] Allergy (Verified 05/12/18 15:15) abd. pain Penicillins Allergy (Verified 05/12/18 15:15) Review of Systems Constitutional: PRESENT: other - no fever,chills Eyes: PRESENT: other - no visual/hearing changes Cardiovascular: PRESENT: other - no chest pains/cough Gastrointestinal: PRESENT: abdominal pain - mild lower abdominal pains, constipation Genitourinary: PRESENT: other - no dysuria Neurological: PRESENT: other - starting some memory loss Psychiatric: PRESENT: anxiety Physical Exam Vital Signs: Temp Pulse Resp BP Pulse Ox 98.5 F 86 16 117/60 100 05/13/18 07:50 05/13/18 07:50 05/13/18 07:50 05/13/18 07:50 05/13/18 07:50 Intake & Output 05/12/18 05/13/18 05/14/18 06:59 06:59 06:59 Intake Total 1000 Output Total 500 Balance 500 Weight 56.4 kg General appearance: PRESENT: no acute distress Head exam: PRESENT: atraumatic Eye exam: PRESENT: conjunctiva pale Mouth exam: PRESENT: moist Neck exam: PRESENT: full ROM Respiratory exam: PRESENT: clear to auscultation tiffany Cardiovascular exam: PRESENT: RRR Pulses: PRESENT: normal radial pulses Vascular exam: PRESENT: normal capillary refill GI/Abdominal exam: PRESENT: soft - nontender Rectal exam: PRESENT: deferred Extremities exam: PRESENT: full ROM Musculoskeletal exam: PRESENT: ambulatory Neurological exam: PRESENT: alert, oriented to person, oriented to place, oriented to time, oriented to situation Psychiatric exam: PRESENT: appropriate affect Skin exam: PRESENT: normal color, warm Results Laboratory Results: 05/13/18 04:17 05/13/18 04:17 05/12/18 05/12/18 05/12/18 19:18 19:18 21:05 WBC RBC Hgb Hct MCV MCH MCHC RDW Plt Count Seg Neutrophils % Lymphocytes % Monocytes % Eosinophils % Basophils % Absolute Neutrophils Absolute Lymphocytes Absolute Monocytes Absolute Eosinophils Absolute Basophils Sodium Potassium Chloride Carbon Dioxide Anion Gap BUN Creatinine Est GFR ( Amer) Est GFR (Non-Af Amer) Glucose Calcium Total Bilirubin AST ALT Alkaline Phosphatase Total Protein Albumin Urine Color YELLOW Urine Appearance CLEAR Urine pH 7.0 Ur Specific [place] 1.016 Urine Protein NEGATIVE Urine Glucose (UA) NEGATIVE Urine Ketones NEGATIVE Urine Blood MODERATE H Urine Nitrite NEGATIVE Ur Leukocyte Esterase NEGATIVE Urine WBC (Auto) 5 Urine RBC (Auto) 6 Stool Occult Blood POSITIVE Blood Type A POSITIVE Antibody Screen NEGATIVE 05/13/18 05/13/18 05/13/18 01:36 04:17 04:17 WBC 8.2 7.4 RBC 2.49 L 2.29 L Hgb 8.0 L D 7.3 L Hct 23.3 L 21.2 L MCV 94 92 MCH 32.0 32.0 MCHC 34.3 34.6 RDW 14.9 H 14.5 H Plt Count 321 299 Seg Neutrophils % 67.2 Lymphocytes % 20.4 Monocytes % 10.0 Eosinophils % 1.5 Basophils % 0.9 Absolute Neutrophils 5.0 Absolute Lymphocytes 1.5 Absolute Monocytes 0.7 Absolute Eosinophils 0.1 Absolute Basophils 0.1 Sodium 138.1 Potassium 4.0 Chloride 108 H Carbon Dioxide 24 Anion Gap 6 BUN 23 H Creatinine 0.65 Est GFR ( Amer) > 60 Est GFR (Non-Af Amer) > 60 Glucose 139 H Calcium 8.2 L Total Bilirubin 0.3 AST 16 ALT 24 Alkaline Phosphatase 37 L Total Protein 5.1 L Albumin 2.9 L Urine Color Urine Appearance Urine pH Ur Specific [place] Urine Protein Urine Glucose (UA) Urine Ketones Urine Blood Urine Nitrite Ur Leukocyte Esterase Urine WBC (Auto) Urine RBC (Auto) Stool Occult Blood Blood Type Antibody Screen Assessment & Plan - Diagnosis (1) GI bleed Qualifiers: GI bleed type/associated pathology: unspecified gastrointestinal hemorrhage type Qualified Code(s): K92.2 - Gastrointestinal hemorrhage, unspecified Is this a current diagnosis for this admission?: Yes - Time Time Spent: 30 to 50 Minutes - Inpatient Certification Medical Necessity: Need For IV Fluids, Need for Surgery - Plan Summary Plan Summary: Agree with blood transfusion. Likely diverticular bleed. Will continue to hold off Xarelto Start bowel prep for possible upper/lower endoscopy by Dr Montelongo or Dr Wilkinson tomorrow.
[2018-05-13] MEDS ORDERED: DESMOPRESSIN ACETATE INJ 4 MCG/1 ML AMPULE IV ONE (12:08)
--- NOTE | 2018-05-13 12:22 | PDOC PROGRESS REPORT ---
Subjective Progress Note for:: 05/13/18 Subjective:: No acute events overnight patient had one episode of bright red blood per rectum this morning. Patient still complaining of mild abdominal discomfort otherwise she denies any chest pain shortness of breath nausea vomiting or any urinary symptoms. Reason For Visit: GI BLEED Physical Exam Vital Signs: Temp Pulse Resp BP Pulse Ox 98.5 F 86 16 117/60 100 05/13/18 07:50 05/13/18 07:50 05/13/18 07:50 05/13/18 07:50 05/13/18 07:50 Intake & Output 05/12/18 05/13/18 05/14/18 06:59 06:59 06:59 Intake Total 1000 Output Total 500 Balance 500 Weight 56.4 kg General appearance: PRESENT: no acute distress, well-developed, well-nourished Head exam: PRESENT: atraumatic, normocephalic Eye exam: PRESENT: conjunctiva pink, EOMI, PERRLA. ABSENT: scleral icterus Ear exam: PRESENT: normal external ear exam Mouth exam: PRESENT: moist, tongue midline Neck exam: ABSENT: carotid bruit, JVD, lymphadenopathy, thyromegaly Respiratory exam: PRESENT: clear to auscultation tiffany. ABSENT: rales, rhonchi, wheezes Cardiovascular exam: PRESENT: RRR. ABSENT: diastolic murmur, rubs, systolic murmur Pulses: PRESENT: normal dorsalis pedis pul Vascular exam: PRESENT: normal capillary refill GI/Abdominal exam: PRESENT: normal bowel sounds, soft. ABSENT: distended, guarding, mass, organolmegaly, rebound, tenderness Rectal exam: PRESENT: deferred Extremities exam: PRESENT: full ROM. ABSENT: calf tenderness, clubbing, pedal edema Neurological exam: PRESENT: alert, awake, oriented to person, oriented to place , oriented to time, oriented to situation, CN II-XII grossly intact. ABSENT: motor sensory deficit Psychiatric exam: PRESENT: appropriate affect, normal mood. ABSENT: homicidal ideation, suicidal ideation Skin exam: PRESENT: dry, intact, warm. ABSENT: cyanosis, rash Results Laboratory Results: 05/13/18 04:17 05/13/18 04:17 05/12/18 05/12/18 05/12/18 19:18 19:18 21:05 WBC RBC Hgb Hct MCV MCH MCHC RDW Plt Count Seg Neutrophils % Lymphocytes % Monocytes % Eosinophils % Basophils % Absolute Neutrophils Absolute Lymphocytes Absolute Monocytes Absolute Eosinophils Absolute Basophils Sodium Potassium Chloride Carbon Dioxide Anion Gap BUN Creatinine Est GFR ( Amer) Est GFR (Non-Af Amer) Glucose Calcium Total Bilirubin AST ALT Alkaline Phosphatase Total Protein Albumin Urine Color YELLOW Urine Appearance CLEAR Urine pH 7.0 Ur Specific [place] 1.016 Urine Protein NEGATIVE Urine Glucose (UA) NEGATIVE Urine Ketones NEGATIVE Urine Blood MODERATE H Urine Nitrite NEGATIVE Ur Leukocyte Esterase NEGATIVE Urine WBC (Auto) 5 Urine RBC (Auto) 6 Stool Occult Blood POSITIVE Blood Type A POSITIVE Antibody Screen NEGATIVE 05/13/18 05/13/18 05/13/18 01:36 04:17 04:17 WBC 8.2 7.4 RBC 2.49 L 2.29 L Hgb 8.0 L D 7.3 L Hct 23.3 L 21.2 L MCV 94 92 MCH 32.0 32.0 MCHC 34.3 34.6 RDW 14.9 H 14.5 H Plt Count 321 299 Seg Neutrophils % 67.2 Lymphocytes % 20.4 Monocytes % 10.0 Eosinophils % 1.5 Basophils % 0.9 Absolute Neutrophils 5.0 Absolute Lymphocytes 1.5 Absolute Monocytes 0.7 Absolute Eosinophils 0.1 Absolute Basophils 0.1 Sodium 138.1 Potassium 4.0 Chloride 108 H Carbon Dioxide 24 Anion Gap 6 BUN 23 H Creatinine 0.65 Est GFR ( Amer) > 60 Est GFR (Non-Af Amer) > 60 Glucose 139 H Calcium 8.2 L Total Bilirubin 0.3 AST 16 ALT 24 Alkaline Phosphatase 37 L Total Protein 5.1 L Albumin 2.9 L Urine Color Urine Appearance Urine pH Ur Specific [place] Urine Protein Urine Glucose (UA) Urine Ketones Urine Blood Urine Nitrite Ur Leukocyte Esterase Urine WBC (Auto) Urine RBC (Auto) Stool Occult Blood Blood Type Antibody Screen Assessment & Plan - Diagnosis (1) GI bleed Qualifiers: GI bleed type/associated pathology: unspecified gastrointestinal hemorrhage type Qualified Code(s): K92.2 - Gastrointestinal hemorrhage, unspecified Is this a current diagnosis for this admission?: Yes Plan: Hemoglobin 7.3 today. 1 PRBC transfusion. H&H 2 hours posttransfusion if hemoglobin less than 7 will transfuse another unit. Continue monitoring hemodynamic status, H&H. Transfuse if less than 7 or symptomatic or actively bleeding. Surgery consulted. Colonoscopy tomorrow n.p.o. after midnight. Continue PPI. Last dose of Xarelto was 3 days ago. Hold Xarelto. 1 dose of DDAVP. (2) HTN (hypertension) Is this a current diagnosis for this admission?: Yes Plan: Normotensive,euvolemic. Restart home antihypertensive medications when clinically appropriate (3) History of diverticulosis Is this a current diagnosis for this admission?: Yes Plan: As per problem #1 (4) History of breast cancer in female Is this a current diagnosis for this admission?: Yes Plan: Outpatient oncology follow-up (5) History of DVT (deep vein thrombosis) Is this a current diagnosis for this admission?: Yes Plan: Left upper extremity DVT. Hold Xarelto due to acute GI bleed (6) Constipation Plan: Start on docusate and bisacodyl (7) Chronic lower back pain Is this a current diagnosis for this admission?: Yes Plan: Restart hydrocodone and tizanidine, duloxetine. Physical therapy (8) Lymphedema Plan: Left upper extremity due to complication of breast cancer. Restart clindamycin. Patient states that she has been on chronic clindamycin for lymphedema flare
[2018-05-13] MEDS: TIZANIDINE HCL 4 MG TABLET PO SCH ×2 (12:24→22:19)
[2018-05-13] MEDS: CLINDAMYCIN HCL 150 MG CAPSULE PO SCH (12:24)
[2018-05-13] MEDS ORDERED: DESMOPRESSIN ACETATE 17 MCG in NORMAL SALINE 50 ML IV ONE (13:15)
--- NOTE | 2018-05-13 14:19 | PDOC CONSULTATION ---
Consultation Consult Date: 05/13/18 Attending physician:: DIANNA LEBLANC Consult reason:: GI bleeding History of Present Illness Admission Date/PCP: 05/12/18 18:21 MARGAUX NAVA MD History of Present Illness: KATYA BANKS is a 77 year old female I had spoken with both Dr Diggs and Dr Harper about this patient patient presented with GI bleeding she is on anticoagulation patient is complaining of rectal bleeding along with abdominal pain patient admitted and is receiving transfusion patient will need to hav evaluation done with EGD and colonoscopy she does have a history of diverticulosis however differential would include both diverticular bleeding vs ischemic colitis patient currently stable Past Medical History Cardiac Medical History: Reports: Hypertension Malignancy Medical History: Reports: Breast Cancer - Last chemo and radiation done in 2011 GI Medical History: Reports: Gastroesophageal Reflux Disease Musculoskeltal Medical History: Reports: Arthritis Psychiatric Medical History: Reports: Depression - +anxiety Hematology: Denies: Anemia, Sickle Cell Disease Past Surgical History Past Surgical History: Reports: Mastectomy, Other - Right and Left Lumpectomy. 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 Denies: Amputation Social History Smoking Status: Former Smoker Number of Years Smokin Last Time Smoked: 1988 Frequency of Alcohol Use: Rare Hx Recreational Drug Use: No Hx Prescription Drug Abuse: No Family History Family History: Reviewed & Not Pertinent Parental Family History Reviewed: Yes Children Family History Reviewed: Unknown Sibling(s) Family History Reviewed.: Unknown Medication/Allergy Home Medications: Clindamycin HCl [Cleocin 300 mg Capsule] 300 mg PO DAILY 05/12/18 Cyclobenzaprine HCl 10 mg PO Q8HP PRN 05/12/18 Duloxetine HCl [Cymbalta] 90 mg PO DAILY 05/12/18 Hydrocodone Bit/Acetaminophen [Hydrocodon-Acetaminophn 10-325] 1 each PO QIDP PRN 05/12/18 Levothyroxine Sodium [Synthroid] 50 mcg PO DAILY 05/12/18 Lorazepam [Ativan 0.5 mg Tablet] 0.5 mg PO Q12HP PRN 05/12/18 Losartan Potassium [Cozaar 25 mg Tablet] 75 mg PO DAILY 05/12/18 Pravastatin Sodium [Pravachol] 20 mg PO DAILY 05/12/18 Rabeprazole Sodium [Aciphex] 20 mg PO Q12 05/12/18 Ranitidine HCl 150 mg PO Q12HP PRN 05/12/18 Zolpidem Tartrate [Ambien] 10 mg PO QHS 05/12/18 Allergies/Adverse Reactions: aspirin [Aspirin] Allergy (Verified 05/12/18 15:15) salazar stomach codeine [Codeine] Allergy (Verified 05/12/18 15:15) itching erythromycin base [Erythromycin Base] Allergy (Verified 05/12/18 15:15) abd. pain Penicillins Allergy (Verified 05/12/18 15:15) Review of Systems Constitutional: ABSENT: fever(s), headache(s), night sweats, weakness Eyes: ABSENT: visual disturbances Ears: ABSENT: hearing changes Nose, Mouth, and Throat: ABSENT: mouth pain, sore throat Cardiovascular: ABSENT: edema, orthropnea Respiratory: ABSENT: dyspnea, hemoptysis Gastrointestinal: PRESENT: abdominal pain, hematochezia. ABSENT: coffee ground emesis, nausea, vomiting Genitourinary: ABSENT: dysuria, hematuria Musculoskeletal: ABSENT: joint swelling Integumentary: ABSENT: lesions, pruritus Neurological: PRESENT: tremor(s). ABSENT: syncope, tingling, vertigo Endocrine: ABSENT: polydipsia, polyphagia, polyuria Hematologic/Lymphatic: ABSENT: easy bruising Physical Exam Vital Signs: Temp Pulse Resp BP Pulse Ox 97.4 F 86 16 107/45 L 98 05/13/18 13:20 05/13/18 13:20 05/13/18 13:20 05/13/18 13:20 05/13/18 13:20 Intake & Output 05/12/18 05/13/18 05/14/18 06:59 06:59 06:59 Intake Total 1000 0 Output Total 500 Balance 500 0 Weight 56.4 kg General appearance: PRESENT: mild distress, well-developed, well-nourished Head exam: PRESENT: atraumatic, normocephalic Eye exam: PRESENT: EOMI, PERRLA. ABSENT: nystagmus, periorbital swelling, scleral icterus Mouth exam: PRESENT: moist. ABSENT: neck supple Throat exam: ABSENT: tonsillar exudate, tonsillogmegaly Neck exam: ABSENT: meningismus, tenderness, thyromegaly Respiratory exam: PRESENT: symmetrical, unlabored. ABSENT: tachypnea, wheezes Cardiovascular exam: PRESENT: RRR, +S1, +S2 GI/Abdominal exam: PRESENT: soft. ABSENT: rebound, rigid, tenderness Extremities exam: ABSENT: joint swelling Neurological exam: PRESENT: alert, awake, oriented to time, oriented to situation, CN II-XII grossly intact Focused psych exam: ABSENT: restlessness Skin exam: PRESENT: normal color. ABSENT: mottled, pallor, urticaria, vesicles Results Laboratory Results: 05/13/18 04:17 05/13/18 04:17 05/12/18 05/12/18 05/12/18 19:18 19:18 21:05 WBC RBC Hgb Hct MCV MCH MCHC RDW Plt Count Seg Neutrophils % Lymphocytes % Monocytes % Eosinophils % Basophils % Absolute Neutrophils Absolute Lymphocytes Absolute Monocytes Absolute Eosinophils Absolute Basophils Sodium Potassium Chloride Carbon Dioxide Anion Gap BUN Creatinine Est GFR ( Amer) Est GFR (Non-Af Amer) Glucose Calcium Total Bilirubin AST ALT Alkaline Phosphatase Total Protein Albumin Urine Color YELLOW Urine Appearance CLEAR Urine pH 7.0 Ur Specific [place] 1.016 Urine Protein NEGATIVE Urine Glucose (UA) NEGATIVE Urine Ketones NEGATIVE Urine Blood MODERATE H Urine Nitrite NEGATIVE Ur Leukocyte Esterase NEGATIVE Urine WBC (Auto) 5 Urine RBC (Auto) 6 Stool Occult Blood POSITIVE Blood Type A POSITIVE Antibody Screen NEGATIVE 05/13/18 05/13/18 05/13/18 01:36 04:17 04:17 WBC 8.2 7.4 RBC 2.49 L 2.29 L Hgb 8.0 L D 7.3 L Hct 23.3 L 21.2 L MCV 94 92 MCH 32.0 32.0 MCHC 34.3 34.6 RDW 14.9 H 14.5 H Plt Count 321 299 Seg Neutrophils % 67.2 Lymphocytes % 20.4 Monocytes % 10.0 Eosinophils % 1.5 Basophils % 0.9 Absolute Neutrophils 5.0 Absolute Lymphocytes 1.5 Absolute Monocytes 0.7 Absolute Eosinophils 0.1 Absolute Basophils 0.1 Sodium 138.1 Potassium 4.0 Chloride 108 H Carbon Dioxide 24 Anion Gap 6 BUN 23 H Creatinine 0.65 Est GFR ( Amer) > 60 Est GFR (Non-Af Amer) > 60 Glucose 139 H Calcium 8.2 L Total Bilirubin 0.3 AST 16 ALT 24 Alkaline Phosphatase 37 L Total Protein 5.1 L Albumin 2.9 L Urine Color Urine Appearance Urine pH Ur Specific [place] Urine Protein Urine Glucose (UA) Urine Ketones Urine Blood Urine Nitrite Ur Leukocyte Esterase Urine WBC (Auto) Urine RBC (Auto) Stool Occult Blood Blood Type Antibody Screen Assessment & Plan - Diagnosis (1) GI bleed Qualifiers: GI bleed type/associated pathology: unspecified gastrointestinal hemorrhage type Is this a current diagnosis for this admission?: Yes Plan: stop anticoagulation for at least 24 48 hours will need colonoscopy and EGD will schedule with Propofol sedation Risks, benefits and alternatives are explained to the patient in detail further recommendations to follow (2) History of diverticulosis Is this a current diagnosis for this admission?: Yes Plan: she does have a component of abdominal discomfort and so while diverticular bleeding is a possibility, would also consider possible ischemic colitis check a sed rate and lactic acid level will schedule for GI work up surgery had been consulted and they are agreeable to deferring care to GI - Time Time Spent: 50 to 70 Minutes
[2018-05-13] MEDS: DEXTROSE 5%-NORMAL SALINE 1,000 ML IV PRN (16:57)
[2018-05-13] MEDS ORDERED: PEG 3350/NA SULF,BICARB,CL/KCL 4000 ML PO ONE (18:00)
[2018-05-13] MEDS ORDERED: DESMOPRESSIN ACETATE 17 MCG in NORMAL SALINE 50 ML IV PRN (21:52)
[2018-05-13] MEDS: ZOLPIDEM TARTRATE 5 MG TABLET PO SCH (22:18)
[2018-05-13] MEDS: ATORVASTATIN CALCIUM 20 MG TABLET PO SCH (22:18)
[2018-05-14] MEDS ORDERED: METOCLOPRAMIDE HCL INJ/PF 10 MG/2 ML SDV IV PRN (00:47)
[2018-05-14 00:54] LABS: HEMATOCRIT 22.5 % (36.0-47.0); MEAN CORPUSCULAR HGB CONC 34.2 g/dL (32.0-36.0); MEAN CORPUSCULAR VOLUME 91 fl (80-97); PLATELET COUNT 207 10^3/uL (150-450); RED BLOOD COUNT 2.48 10^6/uL (3.72-5.28); RED CELL DISTRIBUTION WIDTH 14.7 % (11.5-14.0); WHITE BLOOD COUNT 7.2 10^3/uL (4.0-10.5)
[2018-05-14 00:57] LABS: HEMOGLOBIN 7.7 g/dL (12.0-15.5)
[2018-05-14] MEDS: ZOLPIDEM TARTRATE 5 MG TABLET PO SCH (03:28)
[2018-05-14] MEDS ORDERED: NORMAL SALINE 250 ML IV PRN ×2 (09:03→17:19)
[2018-05-14 09:22] LABS: ABSOLUTE BASOPHILS # (AUTO) 0.1 10^3/uL (0.0-0.2); ABSOLUTE EOSINOPHILS # (AUTO) 0.1 10^3/uL (0.0-0.6); ABSOLUTE LYMPHOCYTES (AUTO) 1.2 10^3/uL (0.5-4.7); ABSOLUTE MONOCYTES (AUTO) 0.7 10^3/uL (0.1-1.4); ABSOLUTE NEUT (AUTO) 9.2 10^3/uL (1.7-8.2); BASOPHILS % (AUTO) 0.6 % (0-2); EOSINOPHILS % (AUTO) 0.7 % (0-6); LYMPHOCYTES % (AUTO) 10.7 % (13-45); MEAN CORPUSCULAR HEMOGLOBIN 31.7 pg (27.0-33.4); MEAN CORPUSCULAR HGB CONC 35.3 g/dL (32.0-36.0); MEAN CORPUSCULAR VOLUME 90 fl (80-97); MONOCYTES % (AUTO) 6.4 % (3-13); PLATELET COUNT 196 10^3/uL (150-450); RED BLOOD COUNT 2.23 10^6/uL (3.72-5.28); RED CELL DISTRIBUTION WIDTH 15.1 % (11.5-14.0); SEGMENTED NEUTROPHILS % (AUTO) 81.6 % (42-78); TOTAL CELLS COUNTED % (AUTO) 100 %; WHITE BLOOD COUNT 11.3 10^3/uL (4.0-10.5)
[2018-05-14] MEDS: MECLIZINE HCL 25 MG TABLET PO SCH ×4 (09:22→21:33)
[2018-05-14] MEDS: TIZANIDINE HCL 4 MG TABLET PO SCH ×2 (09:23→21:33)
[2018-05-14] MEDS: CLINDAMYCIN HCL 150 MG CAPSULE PO SCH (09:23)
[2018-05-14] MEDS: DULOXETINE HCL 30 MG CAPSULE.DR PO SCH ×2 (09:24→21:33)
[2018-05-14] MEDS: PANTOPRAZOLE SODIUM 40 MG VIAL IV SCH (09:24)
[2018-05-14 09:29] LABS: ALANINE AMINOTRANSFERASE 22 U/L (9-52); ALBUMIN 2.3 g/dL (3.5-5.0); ALKALINE PHOSPHATASE 31 U/L (38-126); ANION GAP 5 (5-19); ASPARTATE AMINO TRANSFERASE 17 U/L (14-36); BILIRUBIN,DIRECT 0.3 mg/dL (0.0-0.4); BILIRUBIN,TOTAL 0.9 mg/dL (0.2-1.3); BLOOD UREA NITROGEN 20 mg/dL (7-20); CALCIUM 7.5 mg/dL (8.4-10.2); CARBON DIOXIDE 21 mmol/L (22-30); CHLORIDE 110 mmol/L (98-107); GLUCOSE 129 mg/dL (75-110); POTASSIUM 3.8 mmol/L (3.6-5.0); SODIUM 136.2 mmol/L (137-145); TOTAL PROTEIN 4.3 g/dL (6.3-8.2)
[2018-05-14 10:26] LABS: HEMOGLOBIN 7.1 g/dL (12.0-15.5)
--- NOTE | 2018-05-14 10:46 | PDOC PROGRESS REPORT ---
Subjective Progress Note for:: 05/14/18 Subjective:: No acute events overnight patient had one episode of bloody bowel movement which the patient states that she had a formed stool and also the blood volume was much less than yesterday. Patient did not finish her bowel prep last night stating it was making her very sick. Patient denies any chest pain, nausea, vomiting, dizziness or shortness of breath. Abdominal discomfort is improving. Reason For Visit: GI BLEED Physical Exam Vital Signs: Temp Pulse Resp BP Pulse Ox 98.8 F 85 16 129/60 H 98 05/14/18 10:23 05/14/18 10:23 05/14/18 10:23 05/14/18 10:23 05/14/18 10:23 Intake & Output 05/13/18 05/14/18 05/15/18 06:59 06:59 06:59 Intake Total 1000 2732.25 0 Output Total 500 Balance 500 2732.25 0 Weight 56.4 kg 57.9 kg General appearance: PRESENT: no acute distress, well-developed, well-nourished Head exam: PRESENT: atraumatic, normocephalic Eye exam: PRESENT: conjunctiva pink, EOMI, PERRLA. ABSENT: scleral icterus Ear exam: PRESENT: normal external ear exam Mouth exam: PRESENT: moist, tongue midline Neck exam: ABSENT: carotid bruit, JVD, lymphadenopathy, thyromegaly Respiratory exam: PRESENT: clear to auscultation tiffany. ABSENT: rales, rhonchi, wheezes Cardiovascular exam: PRESENT: RRR. ABSENT: diastolic murmur, rubs, systolic murmur Pulses: PRESENT: normal dorsalis pedis pul Vascular exam: PRESENT: normal capillary refill GI/Abdominal exam: PRESENT: normal bowel sounds, soft. ABSENT: distended, guarding, mass, organolmegaly, rebound, tenderness Rectal exam: PRESENT: deferred Extremities exam: PRESENT: full ROM. ABSENT: calf tenderness, clubbing, pedal edema Neurological exam: PRESENT: alert, awake, oriented to person, oriented to place , oriented to time, oriented to situation, CN II-XII grossly intact. ABSENT: motor sensory deficit Psychiatric exam: PRESENT: appropriate affect, normal mood. ABSENT: homicidal ideation, suicidal ideation Skin exam: PRESENT: dry, intact, warm. ABSENT: cyanosis, rash Results Laboratory Results: 05/14/18 04:35 05/14/18 04:35 05/12/18 05/14/18 05/14/18 21:05 00:45 04:35 WBC 7.2 11.3 H RBC 2.48 L 2.23 L Hgb 7.7 L 7.1 L Hct 22.5 L 20.0 L MCV 91 90 MCH 31.0 31.7 MCHC 34.2 35.3 RDW 14.7 H 15.1 H Plt Count 207 196 Seg Neutrophils % 81.6 H Lymphocytes % 10.7 L Monocytes % 6.4 Eosinophils % 0.7 Basophils % 0.6 Absolute Neutrophils 9.2 H Absolute Lymphocytes 1.2 Absolute Monocytes 0.7 Absolute Eosinophils 0.1 Absolute Basophils 0.1 Sodium Potassium Chloride Carbon Dioxide Anion Gap BUN Creatinine Est GFR ( Amer) Est GFR (Non-Af Amer) Glucose Calcium Total Bilirubin AST ALT Alkaline Phosphatase Total Protein Albumin Blood Type A POSITIVE Antibody Screen NEGATIVE 05/14/18 04:35 WBC RBC Hgb Hct MCV MCH MCHC RDW Plt Count Seg Neutrophils % Lymphocytes % Monocytes % Eosinophils % Basophils % Absolute Neutrophils Absolute Lymphocytes Absolute Monocytes Absolute Eosinophils Absolute Basophils Sodium 136.2 L Potassium 3.8 Chloride 110 H Carbon Dioxide 21 L Anion Gap 5 BUN 20 Creatinine 0.64 Est GFR ( Amer) > 60 Est GFR (Non-Af Amer) > 60 Glucose 129 H Calcium 7.5 L Total Bilirubin 0.9 AST 17 ALT 22 Alkaline Phosphatase 31 L Total Protein 4.3 L Albumin 2.3 L Blood Type Antibody Screen Assessment & Plan - Diagnosis (1) GI bleed Qualifiers: GI bleed type/associated pathology: unspecified gastrointestinal hemorrhage type Qualified Code(s): K92.2 - Gastrointestinal hemorrhage, unspecified Is this a current diagnosis for this admission?: Yes Plan: Hemoglobin 7.1 today. Status post 2 PRBC transfusion yesterday. 1 PRBC transfusion today , H&H 2 hours post transfusion. She is scheduled to have her upper and lower endoscopy however she did not finish her bowel prep. Continue monitoring hemodynamic status, H&H. Transfuse if less than 7 or symptomatic or actively bleeding. Surgery consulted. Colonoscopy tomorrow n.p.o. after midnight. Continue PPI. Last dose of Xarelto was 3 days ago. Hold Xarelto. 1 dose of DDAVP yesterday (2) HTN (hypertension) Is this a current diagnosis for this admission?: Yes Plan: Normotensive,euvolemic. Restart home antihypertensive medications when clinically appropriate (3) History of diverticulosis Is this a current diagnosis for this admission?: Yes Plan: Recent GI blood could be from diverticulosis versus colitis. Her graft patient is scheduled for upper and lower endoscopy. GI service is on board. (4) History of breast cancer in female Is this a current diagnosis for this admission?: Yes Plan: Outpatient oncology follow-up (5) History of DVT (deep vein thrombosis) Is this a current diagnosis for this admission?: Yes Plan: Left upper extremity DVT. Hold Xarelto due to acute GI bleed (6) Constipation Plan: Patient has history of constipation however will hold bowel regimen due to recent GI bleed. Restart once GI bleed has resolved (7) Chronic lower back pain Is this a current diagnosis for this admission?: Yes Plan: Restart hydrocodone and tizanidine, duloxetine. Physical therapy (8) Lymphedema Plan: Left upper extremity due to complication of breast cancer. Restart clindamycin. Patient states that she has been on chronic clindamycin for lymphedema flare
[2018-05-14] MEDS ORDERED: PROPOFOL INJ 200 MG/20 ML VIAL IV ONE ×2 (12:42→14:10)
[2018-05-14] MEDS ORDERED: DIPHENHYDRAMINE HCL 50 MG/ML VIAL IV PRN (14:12)
--- NOTE | 2018-05-14 14:39 | Operative Report ---
Operative Report DATE OF SURGERY: 05/14/18 Operative Report: The risks benefits and alternatives of the procedure explained to the patient in detail and informed consent is obtained.A GIF Olympus video scope was inserted into the patient's mouth and hypopharynx, the esophagus is identified intubated and insufflated, the scope was then advanced through the esophagus stomach and duodenum ,retroflexion maneuver is done the esophagus stomach and first and second portions of the duodenum examined Patient was originally scheduled to also have a colonoscopy. Prep orders have been written. Apparently patient had refused the prep overnight but I was not made aware of that fact. Because she is not probably would not be safe to proceed with a colonoscopy. There would be a high risk of inadvertent perforation. Patient also has multiple excuses for why she cannot tolerate prep. However unless she preps I would not be comfortable with proceeding with a colonoscopy. Therefore we will need be proceeding with the EGD today. Also note I will not be available post 12 noon tomorrow. The patient does have continued bleeding would recommend a bleeding scan and possible transfer to tertiary institution she may need radiology for possible embolization procedure. PREOPERATIVE DIAGNOSIS: GI bleeding POSTOPERATIVE DIAGNOSIS: Gastritis status post biopsy. No colonoscopy done due to reasons stated above OPERATION: EGD with biopsy SURGEON: DIANNA LEBLANC TISSUE REMOVED OR ALTERED: Superficial mucosal specimen obtained in the gastric antrum rule out Helicobacter pylori COMPLICATIONS: None. ESTIMATED BLOOD LOSS: None. INTRAOPERATIVE FINDINGS: As noted above. PROCEDURE: Patient tolerated the procedure well. No immediate postprocedure complications are noted. Patient sent back to her room in good condition. As noted on the EGD performed No colonoscopy done for the reason stated above. She likely has diverticular bleeding If does not resolve on its own may need embolization with interventional radiology which is available at a tertiary institution May want to get bleeding scan in the meanwhile Continue transfusion Avoid anticoagulation We will not be able to proceed with colonoscopy in this patient make some attempt at getting prepped for a colonoscopy. This was discussed with her prior to having the EGD done.
[2018-05-14 16:12] LABS: ABSOLUTE BASOPHILS # (AUTO) 0.1 10^3/uL (0.0-0.2); ABSOLUTE EOSINOPHILS # (AUTO) 0.1 10^3/uL (0.0-0.6); ABSOLUTE LYMPHOCYTES (AUTO) 1.5 10^3/uL (0.5-4.7); ABSOLUTE MONOCYTES (AUTO) 0.9 10^3/uL (0.1-1.4); ABSOLUTE NEUT (AUTO) 6.8 10^3/uL (1.7-8.2); BASOPHILS % (AUTO) 0.6 % (0-2); HEMATOCRIT 22.4 % (36.0-47.0); LYMPHOCYTES % (AUTO) 15.8 % (13-45); MEAN CORPUSCULAR HEMOGLOBIN 31.6 pg (27.0-33.4); MEAN CORPUSCULAR HGB CONC 34.8 g/dL (32.0-36.0); MEAN CORPUSCULAR VOLUME 91 fl (80-97); MONOCYTES % (AUTO) 9.6 % (3-13); PLATELET COUNT 186 10^3/uL (150-450); RED BLOOD COUNT 2.47 10^6/uL (3.72-5.28); RED CELL DISTRIBUTION WIDTH 14.5 % (11.5-14.0); TOTAL CELLS COUNTED % (AUTO) 100 %; WHITE BLOOD COUNT 9.3 10^3/uL (4.0-10.5)
[2018-05-14 16:16] LABS: HEMOGLOBIN 7.8 g/dL (12.0-15.5)
[2018-05-14 18:11] LABS: INTERNATIONAL RATION (INR) 1.05; PROTHROMBIN TIME 14.2 SEC (11.4-15.4)
[2018-05-14] MEDS: DEXTROSE 5%-NORMAL SALINE 1,000 ML IV PRN (18:54)
[2018-05-14 21:04] LABS: ABSOLUTE EOSINOPHILS # (AUTO) 0.2 10^3/uL (0.0-0.6); ABSOLUTE LYMPHOCYTES (AUTO) 1.8 10^3/uL (0.5-4.7); ABSOLUTE MONOCYTES (AUTO) 1.1 10^3/uL (0.1-1.4); ABSOLUTE NEUT (AUTO) 6.4 10^3/uL (1.7-8.2); BASOPHILS % (AUTO) 0.5 % (0-2); HEMATOCRIT 20.4 % (36.0-47.0); LYMPHOCYTES % (AUTO) 18.9 % (13-45); MEAN CORPUSCULAR HGB CONC 35.8 g/dL (32.0-36.0); MEAN CORPUSCULAR VOLUME 89 fl (80-97); MONOCYTES % (AUTO) 11.1 % (3-13); PLATELET COUNT 181 10^3/uL (150-450); RED BLOOD COUNT 2.28 10^6/uL (3.72-5.28); RED CELL DISTRIBUTION WIDTH 14.7 % (11.5-14.0); SEGMENTED NEUTROPHILS % (AUTO) 67.5 % (42-78); TOTAL CELLS COUNTED % (AUTO) 100 %; WHITE BLOOD COUNT 9.5 10^3/uL (4.0-10.5)
[2018-05-14 21:19] LABS: HEMOGLOBIN 7.3 g/dL (12.0-15.5)
[2018-05-14] MEDS: HYDROCOD/ACETAMIN 7.5-325 MG/15 ML ORAL SOLN UDCUP PO PRN (21:32)
[2018-05-14] MEDS: ATORVASTATIN CALCIUM 20 MG TABLET PO SCH (21:33)
[2018-05-15] MEDS: HYDROCOD/ACETAMIN 7.5-325 MG/15 ML ORAL SOLN UDCUP PO PRN (03:54)
[2018-05-15] MEDS: ZOLPIDEM TARTRATE 5 MG TABLET PO SCH (06:52)
[2018-05-15] MEDS: LEVOTHYROXINE SODIUM 0.1 MG TABLET PO SCH ×2 (06:54→06:55)
[2018-05-15 08:08] LABS: ABSOLUTE EOSINOPHILS # (AUTO) 0.1 10^3/uL (0.0-0.6); ABSOLUTE LYMPHOCYTES (AUTO) 1.1 10^3/uL (0.5-4.7); ABSOLUTE MONOCYTES (AUTO) 0.7 10^3/uL (0.1-1.4); ABSOLUTE NEUT (AUTO) 8.5 10^3/uL (1.7-8.2); BASOPHILS % (AUTO) 0.4 % (0-2); EOSINOPHILS % (AUTO) 1.2 % (0-6); HEMATOCRIT 22.7 % (36.0-47.0); HEMOGLOBIN 8.1 g/dL (12.0-15.5); LYMPHOCYTES % (AUTO) 10.8 % (13-45); MEAN CORPUSCULAR HEMOGLOBIN 31.8 pg (27.0-33.4); MEAN CORPUSCULAR HGB CONC 35.7 g/dL (32.0-36.0); MEAN CORPUSCULAR VOLUME 89 fl (80-97); MONOCYTES % (AUTO) 6.6 % (3-13); PLATELET COUNT 160 10^3/uL (150-450); RED BLOOD COUNT 2.55 10^6/uL (3.72-5.28); RED CELL DISTRIBUTION WIDTH 14.6 % (11.5-14.0); TOTAL CELLS COUNTED % (AUTO) 100 %; WHITE BLOOD COUNT 10.5 10^3/uL (4.0-10.5)
[2018-05-15 08:28] LABS: ALANINE AMINOTRANSFERASE 25 U/L (9-52); ALBUMIN 2.6 g/dL (3.5-5.0); ALKALINE PHOSPHATASE 32 U/L (38-126); ANION GAP 9 (5-19); ASPARTATE AMINO TRANSFERASE 23 U/L (14-36); BILIRUBIN,DIRECT 0.2 mg/dL (0.0-0.4); BILIRUBIN,TOTAL 1.1 mg/dL (0.2-1.3); BLOOD UREA NITROGEN 13 mg/dL (7-20); CALCIUM 7.4 mg/dL (8.4-10.2); CARBON DIOXIDE 23 mmol/L (22-30); CHLORIDE 98 mmol/L (98-107); GLUCOSE 104 mg/dL (75-110); POTASSIUM 3.2 mmol/L (3.6-5.0); SODIUM 129.8 mmol/L (137-145); TOTAL PROTEIN 4.7 g/dL (6.3-8.2)
[2018-05-15] MEDS ORDERED: NORMAL SALINE 250 ML IV PRN ×10 (10:10→23:17)
--- NOTE | 2018-05-15 10:12 | PDOC PROGRESS REPORT ---
Subjective Progress Note for:: 05/15/18 Subjective:: Overnight patient states that she has about 2-3 bloody bowel movements which were less bloody than the day before yesterday. Patient is status post 4 PRBC. Endoscopy is still pending, it was delayed due to unprepped bowel. Overnight patient has been drinking her prep but she is having difficulty with it. She still has have given him for prep to be finished. Patient sitting on the bed talking to me she is a little bit worried about the way nursing staff has been treating her otherwise she has not any complaints. She denies any shortness of breath, chest pain, nausea, vomiting, abdominal pain , urinary symptoms, lower extremity swelling. Reason For Visit: GI BLEED Physical Exam Vital Signs: Temp Pulse Resp BP Pulse Ox 97.7 F 78 16 156/76 H 100 05/15/18 04:30 05/15/18 07:00 05/15/18 04:30 05/15/18 04:30 05/15/18 04:30 Intake & Output 05/14/18 05/15/18 05/16/18 06:59 06:59 06:59 Intake Total 3732.25 2530 Output Total 0 Balance 3732.25 2530 Weight 57.9 kg 58.2 kg General appearance: PRESENT: no acute distress, well-developed, well-nourished Head exam: PRESENT: atraumatic, normocephalic Eye exam: PRESENT: conjunctiva pink, EOMI, PERRLA. ABSENT: scleral icterus Ear exam: PRESENT: normal external ear exam Mouth exam: PRESENT: moist, tongue midline Neck exam: ABSENT: carotid bruit, JVD, lymphadenopathy, thyromegaly Respiratory exam: PRESENT: clear to auscultation tiffany. ABSENT: rales, rhonchi, wheezes Cardiovascular exam: PRESENT: RRR. ABSENT: diastolic murmur, rubs, systolic murmur Pulses: PRESENT: normal dorsalis pedis pul Vascular exam: PRESENT: normal capillary refill GI/Abdominal exam: PRESENT: normal bowel sounds, soft. ABSENT: distended, guarding, mass, organolmegaly, rebound, tenderness Rectal exam: PRESENT: deferred Extremities exam: PRESENT: full ROM. ABSENT: calf tenderness, clubbing, pedal edema Musculoskeletal exam: PRESENT: other - Left upper extremity chronic lymphedema due to breast lumpectomy complication. Neurological exam: PRESENT: alert, awake, oriented to person, oriented to place , oriented to time, oriented to situation, CN II-XII grossly intact. ABSENT: motor sensory deficit Psychiatric exam: PRESENT: appropriate affect, normal mood. ABSENT: homicidal ideation, suicidal ideation Skin exam: PRESENT: dry, intact, warm. ABSENT: cyanosis, rash Results Laboratory Results: 05/15/18 07:17 05/15/18 07:17 05/12/18 05/14/18 05/14/18 21:05 04:35 04:35 WBC 11.3 H RBC 2.23 L Hgb 7.1 L Hct 20.0 L MCV 90 MCH 31.7 MCHC 35.3 RDW 15.1 H Plt Count 196 Seg Neutrophils % 81.6 H Lymphocytes % 10.7 L Monocytes % 6.4 Eosinophils % 0.7 Basophils % 0.6 Absolute Neutrophils 9.2 H Absolute Lymphocytes 1.2 Absolute Monocytes 0.7 Absolute Eosinophils 0.1 Absolute Basophils 0.1 Sodium 136.2 L Potassium 3.8 Chloride 110 H Carbon Dioxide 21 L Anion Gap 5 BUN 20 Creatinine 0.64 Est GFR ( Amer) > 60 Est GFR (Non-Af Amer) > 60 Glucose 129 H Lactic Acid Calcium 7.5 L Total Bilirubin 0.9 AST 17 ALT 22 Alkaline Phosphatase 31 L Total Protein 4.3 L Albumin 2.3 L Blood Type A POSITIVE Antibody Screen NEGATIVE 05/14/18 05/14/18 05/14/18 16:00 16:00 20:51 WBC 9.3 9.5 RBC 2.47 L 2.28 L Hgb 7.8 L 7.3 L Hct 22.4 L 20.4 L MCV 91 89 MCH 31.6 32.0 MCHC 34.8 35.8 RDW 14.5 H 14.7 H Plt Count 186 181 Seg Neutrophils % 73.0 67.5 Lymphocytes % 15.8 18.9 Monocytes % 9.6 11.1 Eosinophils % 1.0 2.0 Basophils % 0.6 0.5 Absolute Neutrophils 6.8 6.4 Absolute Lymphocytes 1.5 1.8 Absolute Monocytes 0.9 1.1 Absolute Eosinophils 0.1 0.2 Absolute Basophils 0.1 0.0 Sodium Potassium Chloride Carbon Dioxide Anion Gap BUN Creatinine Est GFR ( Amer) Est GFR (Non-Af Amer) Glucose Lactic Acid 1.2 Calcium Total Bilirubin AST ALT Alkaline Phosphatase Total Protein Albumin Blood Type Antibody Screen 05/15/18 05/15/18 07:17 07:17 WBC 10.5 RBC 2.55 L Hgb 8.1 L Hct 22.7 L MCV 89 MCH 31.8 MCHC 35.7 RDW 14.6 H Plt Count 160 Seg Neutrophils % 81.0 H Lymphocytes % 10.8 L Monocytes % 6.6 Eosinophils % 1.2 Basophils % 0.4 Absolute Neutrophils 8.5 H Absolute Lymphocytes 1.1 Absolute Monocytes 0.7 Absolute Eosinophils 0.1 Absolute Basophils 0.0 Sodium 129.8 L Potassium 3.2 L Chloride 98 Carbon Dioxide 23 Anion Gap 9 BUN 13 Creatinine 0.50 L Est GFR ( Amer) > 60 Est GFR (Non-Af Amer) > 60 Glucose 104 Lactic Acid Calcium 7.4 L Total Bilirubin 1.1 AST 23 ALT 25 Alkaline Phosphatase 32 L Total Protein 4.7 L Albumin 2.6 L Blood Type Antibody Screen 05/12/18 19:18 Clean Catch Midstream Urine Culture - Final Escherichia Coli Assessment & Plan - Diagnosis (1) GI bleed Qualifiers: GI bleed type/associated pathology: unspecified gastrointestinal hemorrhage type Qualified Code(s): K92.2 - Gastrointestinal hemorrhage, unspecified Is this a current diagnosis for this admission?: Yes Plan: Patient still have some GI bleed. Status post 4 PRBC transfusion since admission. Today hemoglobin is 8.1. Patient is status post upper GI endoscopy with gastric antrum biopsy. No official report available. Patient did not get her colonoscopy yesterday because she was not prepped properly. She is scheduled to have her colonoscopy today. Surgery has been consulted and they are on board. Her platelets are 160 today I will transfuse 1 unit. Patient is hemodynamically stable and denies any chest pain shortness of breath or dizziness. We will continue monitoring her hemodynamics, continue PPIs, Zofran, monitor H&H if unstable or hemoglobin less than 7 will transfuse. (2) HTN (hypertension) Is this a current diagnosis for this admission?: Yes Plan: Normotensive,euvolemic. Restart home antihypertensive medications when clinically appropriate (3) History of diverticulosis Is this a current diagnosis for this admission?: Yes Plan: Recent GI blood could be from diverticulosis versus colitis. Colonoscopy today. Surgery on board (4) History of breast cancer in female Is this a current diagnosis for this admission?: Yes Plan: Outpatient oncology follow-up (5) History of DVT (deep vein thrombosis) Is this a current diagnosis for this admission?: Yes Plan: Left upper extremity DVT. Hold Xarelto due to acute GI bleed (6) Constipation Plan: Patient has history of constipation however will hold bowel regimen due to recent GI bleed. Restart once GI bleed has resolved (7) Chronic lower back pain Is this a current diagnosis for this admission?: Yes Plan: Restart hydrocodone and tizanidine, duloxetine. Physical therapy (8) Lymphedema Plan: Left upper extremity due to complication of breast cancer. Restart clindamycin. Patient states that she has been on chronic clindamycin for lymphedema flare
[2018-05-15] MEDS: PANTOPRAZOLE SODIUM 40 MG VIAL IV SCH (10:15)
[2018-05-15] MEDS: ONDANSETRON HCL INJ/PF 4 MG/2 ML SDV IV PRN (10:15)
[2018-05-15] MEDS: DULOXETINE HCL 30 MG CAPSULE.DR PO SCH (10:15)
[2018-05-15] MEDS: CLINDAMYCIN HCL 150 MG CAPSULE PO SCH (10:16)
[2018-05-15] MEDS: TIZANIDINE HCL 4 MG TABLET PO SCH (10:16)
[2018-05-15] MEDS ORDERED: POTASSIUM CHLORIDE 20 MEQ/15 ML UDCUP PO ONE (11:00)
--- NOTE | 2018-05-15 12:05 | RADIOLOGY REPORT (SQ) ---
EXAM DESCRIPTION: CT HEAD WITHOUT COMPLETED DATE/TIME: 05/15/2018 11:53 am REASON FOR STUDY: change in mental status COMPARISON: 03/24/2018. TECHNIQUE: Axial images acquired through the brain without intravenous contrast. Images reviewed wi th bone, brain and subdural windows. Additional sagittal and coronal reconstructions were generated. Images stored on PACS. All CT scanners at this facility use dose modulation, iterative reconstruction, and/or weight based d osing when appropriate to reduce radiation dose to as low as reasonably achievable (ALARA). [facility]: Dose Right [facility]: CareDose [facility]: Dose Right [facility]: Teradose 4D [facility]: Bitex.la RADIATION DOSE: CT Rad equipment meets quality standard of care and radiation dose reduction techniq ues were employed. CTDIvol: 48.6 - 49.0 mGy. DLP: 1834 mGy-cm. mGy. LIMITATIONS: None. FINDINGS: VENTRICLES: Normal size and contour. CEREBRUM: No masses. No hemorrhage. No midline shift. No evidence for acute infarction. Normal gra y/white matter differentiation. No areas of low density in the white matter. CEREBELLUM: No masses. No hemorrhage. No alteration of density. No evidence for acute infarction. EXTRAAXIAL SPACES: No fluid collections. No masses. ORBITS AND GLOBE: No intra- or extraconal masses. Normal contour of globe without masses. CALVARIUM: No fracture. PARANASAL SINUSES: No fluid or mucosal thickening. SOFT TISSUES: No mass or hematoma. OTHER: No other significant finding. IMPRESSION: NORMAL BRAIN CT WITHOUT CONTRAST. EVIDENCE OF ACUTE STROKE: NO. COMMENT: Quality ID # [id number]: Final reports with documentation of one or more dose reduction techniques (e.g., Automated exposure control, adjustment of the mA and/or kV according to patient size, use of iterative reconstruction technique) TECHNICAL DOCUMENTATION: JOB ID: [id number] [employer]- All Rights Reserved Reading location - IP/workstation name: [email or web address]
--- NOTE | 2018-05-15 12:05 | Progress Note ---
Provider Note Provider Note: Patient was posted on the OR schedule for later today procedure is being done by Dr Hyman he will advise pending findings of the colonoscopy
[2018-05-15] MEDS: DEXTROSE 5%-NORMAL SALINE 1,000 ML IV PRN (13:30)
[2018-05-15] MEDS ORDERED: ROCURONIUM BROMIDE INJ 50 MG/5 ML VIAL IV ONE (14:44)
[2018-05-15] MEDS ORDERED: SUCCINYLCHOLINE CHLORIDE INJ 200 MG/10 ML VIAL ONE (14:44)
--- NOTE | 2018-05-15 16:47 | RADIOLOGY REPORT (SQ) ---
EXAM DESCRIPTION: CHEST SINGLE VIEW COMPLETED DATE/TIME: 05/15/2018 4:39 pm REASON FOR STUDY: Central Line Placement / Right IJ COMPARISON: None. EXAM PARAMETERS: NUMBER OF VIEWS: One view. TECHNIQUE: Single frontal radiographic view of the chest acquired. RADIATION DOSE: NA LIMITATIONS: None. FINDINGS: LUNGS AND PLEURA: No opacities, masses or pneumothorax. No pleural effusion. MEDIASTINUM AND HILAR STRUCTURES: No masses. Contour normal. HEART AND VASCULAR STRUCTURES: Heart normal in size. Normal vasculature. BONES: No acute findings. Chronic degenerative changes in the spine and shoulders. HARDWARE: Central line on the right side. Tip at the cavoatrial junction. Surgical clips in the sof t tissues on the left. OTHER: No other significant finding. IMPRESSION: NO PNEUMOTHORAX FOLLOWING CENTRAL LINE PLACEMENT. NO ACUTE RADIOGRAPHIC FINDING IN THE CHEST. TECHNICAL DOCUMENTATION: JOB ID: [id number] [employer]- All Rights Reserved Reading location - IP/workstation name: [email or web address]
[2018-05-15 18:24] LABS: INTERNATIONAL RATION (INR) 1.19; PROTHROMBIN TIME 15.7 SEC (11.4-15.4)
[2018-05-15 18:25] LABS: PARTIAL THROMBOPLASTIN TIME 24.3 SEC (23.5-35.8)
[2018-05-15 18:32] LABS: HEMATOCRIT 20.8 % (36.0-47.0); MEAN CORPUSCULAR HEMOGLOBIN 30.9 pg (27.0-33.4); MEAN CORPUSCULAR HGB CONC 35.2 g/dL (32.0-36.0); MEAN CORPUSCULAR VOLUME 88 fl (80-97); PLATELET COUNT 176 10^3/uL (150-450); RED BLOOD COUNT 2.37 10^6/uL (3.72-5.28); WHITE BLOOD COUNT 17.5 10^3/uL (4.0-10.5)
[2018-05-15 18:40] LABS: ABSOLUTE LYMPHOCYTES# (MANUAL) 0.7 10^3/uL (0.5-4.7); ABSOLUTE MONOCYTES # (MANUAL) 0.4 10^3/uL (0.1-1.4); ABSOLUTE NEUTROPHILS# (MANUAL) 16.5 10^3/uL (1.7-8.2); BAND NEUTROPHILS % (MANUAL) 2 % (3-5); BASOPHILS % (MANUAL) 0 % (0-2); EOSINOPHILS % (MANUAL) 0 % (0-6); LYMPHOCYTES % (MANUAL) 4 % (13-45); MONOCYTES % (MANUAL) 2 % (3-13); SEGMENTED NEUTROPHILS % (MAN) 92 % (42-78); TOTAL CELLS COUNTED 100
[2018-05-15 18:41] LABS: ANISOCYTOSIS SLIGHT; PLATELET COMMENT ADEQUATE
[2018-05-15 18:42] LABS: ANION GAP 7 (5-19); BLOOD UREA NITROGEN 9 mg/dL (7-20); CARBON DIOXIDE 22 mmol/L (22-30); CHLORIDE 98 mmol/L (98-107); GLUCOSE 129 mg/dL (75-110); SODIUM 126.7 mmol/L (137-145)
[2018-05-15 18:45] LABS: HEMOGLOBIN 7.3 g/dL (12.0-15.5)
[2018-05-15 18:57] LABS: CALCIUM 6.8 mg/dL (8.4-10.2); POTASSIUM 2.9 mmol/L (3.6-5.0)
[2018-05-15] MEDS ORDERED: CEFTRIAXONE 1 GM/D5W RTU 1 GM/50 ML RTUPB IV SCH (19:00)
[2018-05-15] MEDS ORDERED: MIDAZOLAM 2 MG/2 ML INJ ONE ×2 (19:12→22:56)
[2018-05-15] MEDS ORDERED: LIDOCAINE 2% INJ-PF (100 MG/5 ML) SYRINGE ONE (19:12)
[2018-05-15] MEDS ORDERED: PROPOFOL INJ 200 MG/20 ML VIAL IV ONE ×2 (19:12→22:56)
--- NOTE | 2018-05-15 19:16 | EKG REPORT ---
SEVERITY:- NORMAL ECG - SINUS RHYTHM : Confirmed by: Tenzin Mccord MD 15-May-2018 19:15:37
[2018-05-15] MEDS ORDERED: CALCIUM GLUCONATE 1000 MG/10 ML INJ IV ONE ×4 (19:38→23:31)
[2018-05-15] MEDS ORDERED: POTASSI CL 20 MEQ/50 ML RIDER 20 MEQ/50 ML RTUPB IV ONE ×2 (19:40→20:02)
--- NOTE | 2018-05-15 19:55 | OPERATIVE REPORT E ---
Operative Report NAME: KATYA BANKS : 1940 AGE: 77Y DATE OF SURGERY: 05/15/2018 ROOM: 609 PREOPERATIVE DIAGNOSIS: Poor veins for IV access. POSTOPERATIVE DIAGNOSIS: Poor veins for IV access. OPERATION: Placement of right internal jugular triple-lumen catheter under ultrasound guidance. SURGEON: JOSE G OHARA M.D. ANESTHESIA: Local. INDICATION: This is a 77-year-old female with lower GI bleed. Patient noted to have change in sensorium with a hemoglobin remaining low around 8.1 this morning, but the patient continued to have some rectal bleeding. Patient then brought to the intensive care unit for closer monitoring. DESCRIPTION OF PROCEDURE: After informed consent obtained from patient's son on the phone, the patient was then placed in a slight Trendelenburg position, and the right neck prepped and draped in the usual sterile fashion with the use of the ultrasound. The right internal jugular vein was then identified, and 1% Xylocaine was injected on the skin of the said area of the internal jugular vein. Internal jugular vein was subsequently punctured, and the guidewire passed through the needle towards the superior vena cava. The needle was removed and the puncture site dilated. A triple-lumen catheter inserted through the guidewire to a distance of about 15 cm. The catheter anchored to the skin with 3-0 silk, and all the three ports aspirated blood easily and instilled easily. A Biopatch placed at the insertion site and a transparent sterile dressing placed over the catheter. A chest x-ray was obtained and showed the catheter in good position right at the junction of the superior vena cava and the right atrium, and no evidence of pneumothorax. The patient tolerated the procedure well. DICTATING PHYSICIAN: JOSE G OHARA M.D. [id number] PHY#: [id number] ID: [id number] JOB#: [id number] ACCT: [id number] cc:JOSE G OHARA M.D. >
--- NOTE | 2018-05-15 21:04 | Operative Report ---
Nonrecallable Operative Report DATE OF SURGERY: 05/15/18 PREOPERATIVE DIAGNOSIS: Lower GI bleeding. POSTOPERATIVE DIAGNOSIS: Active lower GI bleeding at 50 cm, did not slow with injection. OPERATION: 1. Colonoscopy to the cecum. 2. Injection of Jessica ink to nirav active bleeding and attempt to tamponade. SURGEON: SOHAIL JEAN ANESTHESIA: LMAC TISSUE REMOVED OR ALTERED: None COMPLICATIONS: Active bleeding at approximately 50 cm, not amenable to [place] nod Via Jessica ink injection. ESTIMATED BLOOD LOSS: Large amount of old blood, clots, and new blood. PROCEDURE: Procedure in detail: After informed consent was obtained, the patient was laid in the left lateral decubitus position. The endoscope was passed up the rectum , sigmoid colon, descending colon, across the transverse colon, down the ascending colon, and into the cecum. The ileocecal valve and appendiceal orifice were identified. There was a large amount of blood extending from the cecum all the way to the rectum. The largest concentration of blood appeared to be in the descending colon, as I was advancing. The scope was withdrawn past the ascending colon, transverse colon, descending colon. In the descending colon multiple scattered diverticula were identified. At approximately 50 cm active bleeding was identified coming from a diverticula. Jessica ink was injected all around the active bleeding in an attempt to tamponade the flow of blood. This was unsuccessful, however the colon was now marked for possible surgical intervention. The scope was withdrawn down the remainder of the sigmoid colon and into the rectum. A large amount of clots were identified, however no further active bleeding was obvious. The scope was removed from the rectum, and the procedure was concluded. All sponge, instrument, needle counts were correct 2. Condition: Guarded.
[2018-05-15] MEDS ORDERED: NORMAL SALINE 1000 ML 1,000 ML IV PRN (21:40)
[2018-05-15 21:41] LABS: ABSOLUTE LYMPHOCYTES (AUTO) 0.7 10^3/uL (0.5-4.7); ABSOLUTE MONOCYTES (AUTO) 1.2 10^3/uL (0.1-1.4); ABSOLUTE NEUT (AUTO) 11.5 10^3/uL (1.7-8.2); BASOPHILS % (AUTO) 0.1 % (0-2); HEMATOCRIT 20.6 % (36.0-47.0); LYMPHOCYTES % (AUTO) 5.1 % (13-45); MEAN CORPUSCULAR HEMOGLOBIN 31.1 pg (27.0-33.4); MEAN CORPUSCULAR HGB CONC 35.3 g/dL (32.0-36.0); MEAN CORPUSCULAR VOLUME 88 fl (80-97); MONOCYTES % (AUTO) 9.2 % (3-13); PLATELET COUNT 104 10^3/uL (150-450); RED BLOOD COUNT 2.34 10^6/uL (3.72-5.28); SEGMENTED NEUTROPHILS % (AUTO) 85.6 % (42-78); TOTAL CELLS COUNTED % (AUTO) 100 %; WHITE BLOOD COUNT 13.5 10^3/uL (4.0-10.5)
[2018-05-15 21:46] LABS: HEMOGLOBIN 7.3 g/dL (12.0-15.5)
[2018-05-15 21:48] LABS: INTERNATIONAL RATION (INR) 1.16; PROTHROMBIN TIME 15.4 SEC (11.4-15.4)
[2018-05-15 21:56] LABS: ANION GAP 7 (5-19); BLOOD UREA NITROGEN 8 mg/dL (7-20); CALCIUM 7.6 mg/dL (8.4-10.2); CARBON DIOXIDE 21 mmol/L (22-30); CHLORIDE 99 mmol/L (98-107); GLUCOSE 130 mg/dL (75-110); POTASSIUM 3.4 mmol/L (3.6-5.0); SODIUM 126.7 mmol/L (137-145)
[2018-05-15] MEDS ORDERED: MAGNESIUM SULFATE/D5W 1 GM/100 ML RTUPB IV ONE (22:35)
[2018-05-15 22:38] LABS: ALBUMIN 2.3 g/dL (3.5-5.0); CALCIUM 7.6 mg/dL (8.4-10.2)
[2018-05-15] MEDS ORDERED: HYDROMORPHONE HCL INJ/PF 2 MG/ML AMPULE ONE (22:55)
[2018-05-15] MEDS ORDERED: EPHEDRINE SULFATE INJ 50 MG/1 ML AMPULE ONE (22:56)
[2018-05-15] MEDS ORDERED: FENTANYL CITRATE INJ/PF 100 MCG/2 ML AMPUL ONE (22:56)
[2018-05-15] MEDS: MAGNESIUM SULFATE/D5W 1 GM/100 ML RTUPB IV PRN (23:10)
[2018-05-15] MEDS ORDERED: FUROSEMIDE INJ/PF 40 MG/4 ML SDV ONE (23:31)
[2018-05-16] MEDS ORDERED: PROPOFOL 1,000 MG/100 ML INFUS..BTL IV ONE (01:45)
[2018-05-16 03:45] LABS: HEMATOCRIT 31.6 % (36.0-47.0); MEAN CORPUSCULAR HEMOGLOBIN 30.7 pg (27.0-33.4); MEAN CORPUSCULAR HGB CONC 36.2 g/dL (32.0-36.0); MEAN CORPUSCULAR VOLUME 85 fl (80-97); RED BLOOD COUNT 3.72 10^6/uL (3.72-5.28); RED CELL DISTRIBUTION WIDTH 13.8 % (11.5-14.0); WHITE BLOOD COUNT 24.8 10^3/uL (4.0-10.5)
[2018-05-16 03:53] LABS: ALBUMIN 2.4 g/dL (3.5-5.0); ANION GAP 9 (5-19); BLOOD UREA NITROGEN 8 mg/dL (7-20); CALCIUM 7.4 mg/dL (8.4-10.2); CARBON DIOXIDE 21 mmol/L (22-30); CHLORIDE 100 mmol/L (98-107); GLUCOSE 144 mg/dL (75-110); SODIUM 130.1 mmol/L (137-145)
[2018-05-16 04:02] LABS: POTASSIUM 2.4 mmol/L (3.6-5.0)
[2018-05-16 04:05] LABS: HEMOGLOBIN 11.4 g/dL (12.0-15.5); PLATELET COUNT 70 10^3/uL (150-450)
[2018-05-16 04:10] LABS: ABSOLUTE LYMPHOCYTES# (MANUAL) 1.2 10^3/uL (0.5-4.7); ABSOLUTE MONOCYTES # (MANUAL) 1.7 10^3/uL (0.1-1.4); ABSOLUTE NEUTROPHILS# (MANUAL) 21.8 10^3/uL (1.7-8.2); BASOPHILS % (MANUAL) 0 % (0-2); EOSINOPHILS % (MANUAL) 0 % (0-6); LYMPHOCYTES % (MANUAL) 5 % (13-45); MONOCYTES % (MANUAL) 7 % (3-13); SEGMENTED NEUTROPHILS % (MAN) 88 % (42-78); TOTAL CELLS COUNTED 100
[2018-05-16 04:17] LABS: BURR CELLS SLIGHT; POIKILOCYTOSIS 2+; POLYCHROMASIA 1+; TOXIC GRANULATION SLIGHT; TOXIC VACUOLATION PRESENT
[2018-05-16 04:18] LABS: PLATELET COMMENT DECREASED; TEAR DROP CELLS 1+
[2018-05-16] MEDS: CEFTRIAXONE SODIUM 1,000 MG in NORMAL SALINE 50 ML IV SCH ×2 (04:19→22:05)
[2018-05-16] MEDS: METRONIDAZOLE 500 MG/NS RTU 500 MG/100 ML RTUPB IV SCH ×3 (04:19→17:06)
[2018-05-16] MEDS: ATORVASTATIN CALCIUM 20 MG TABLET PO SCH ×2 (04:20→22:07)
[2018-05-16] MEDS: ZOLPIDEM TARTRATE 5 MG TABLET PO SCH (04:20)
[2018-05-16] MEDS: TIZANIDINE HCL 4 MG TABLET PO SCH (04:20)
[2018-05-16] MEDS: DULOXETINE HCL 30 MG CAPSULE.DR PO SCH (04:28)
[2018-05-16] MEDS ORDERED: NORMAL SALINE 1000 ML 1,000 ML IV PRN (04:33)
[2018-05-16] MEDS ORDERED: PROPOFOL 1,000 MG/100 ML INFUS..BTL IV PRN (04:36)
[2018-05-16] MEDS: MAGNESIUM SULFATE/D5W 1 GM/100 ML RTUPB IV PRN (04:43)
[2018-05-16] MEDS: POTASSIUM CHLORIDE 20 MEQ/50 ML RTU IV SCH ×4 (05:04→11:14)
[2018-05-16] MEDS: LEVOTHYROXINE SODIUM 0.1 MG TABLET PO SCH (05:05)
--- NOTE | 2018-05-16 05:37 | RADIOLOGY REPORT (SQ) ---
EXAM DESCRIPTION: XR CHEST 1 VIEW COMPLETED DATE/TME: 05/16/2018 00:00 CLINICAL HISTORY: ET Tube Placement COMPARISON: 05/15/2018 FINDINGS: Single frontal view of the chest. Right IJ central venous catheter. Endotracheal tube placed with tip 3 cm above the juaquin. NG tube placed with tip below the diaphragm. Leads overlie the chest. Postoperative change in the left axillary region. Atherosclerotic calcification and tortuosity of thoracic aorta. Heart is not enlarged. No pneumothorax or large effusion. Likely minimal bibasilar subsegmental atelectasis. No displaced rib fractures identified. Upper abdominal soft tissues are unremarkable. IMPRESSION: 1. Endotracheal tube with tip 3 cm above the juaquin.
[2018-05-16] MEDS: MAGNESIUM SULFATE/D5W 1 GM/100 ML RTUPB IV SCH ×3 (05:40→08:30)
[2018-05-16 06:32] LABS: ANION GAP 9 (5-19); BLOOD UREA NITROGEN 8 mg/dL (7-20); CARBON DIOXIDE 19 mmol/L (22-30); CHLORIDE 101 mmol/L (98-107); GLUCOSE 171 mg/dL (75-110); POTASSIUM 3.1 mmol/L (3.6-5.0); SODIUM 128.7 mmol/L (137-145)
[2018-05-16 06:46] LABS: CALCIUM 6.9 mg/dL (8.4-10.2)
--- NOTE | 2018-05-16 08:39 | RADIOLOGY REPORT (SQ) ---
EXAM DESCRIPTION: CHEST SINGLE VIEW COMPLETED DATE/TIME: 05/16/2018 8:24 am REASON FOR STUDY: Intubated. Pneumonia COMPARISON: 05/16/2018. EXAM PARAMETERS: NUMBER OF VIEWS: One view. TECHNIQUE: Single frontal radiographic view of the chest acquired. RADIATION DOSE: NA LIMITATIONS: None. FINDINGS: LUNGS AND PLEURA: No acute infiltrates or effusions. Bilateral pleural thickening. Resol ution of bibasilar atelectasis. MEDIASTINUM AND HILAR STRUCTURES: No masses. Contour normal. HEART AND VASCULAR STRUCTURES: The heart is normal with aortic atherosclerosis. BONES: Dorsal spondylosis. HARDWARE: Surgical clips left axilla. OTHER: Right IJ line overlying SVC. NG tube overlying stomach. Endotracheal tube above juaquin. Sta tus post left mastectomy. IMPRESSION: NO ACUTE DISEASE. TECHNICAL DOCUMENTATION: JOB ID: [id number] [employer]- All Rights Reserved Reading location - IP/workstation name: [email or web address]
[2018-05-16] MEDS: FUROSEMIDE INJ/PF 20 MG/2 ML SDV IV SCH ×2 (09:16→22:06)
[2018-05-16] MEDS: PANTOPRAZOLE SODIUM 40 MG VIAL IV SCH (09:16)
[2018-05-16] MEDS: LOSARTAN POTASSIUM 25 MG TABLET PO SCH (09:16)
[2018-05-16] MEDS: CLINDAMYCIN HCL 150 MG CAPSULE PO SCH (09:28)
--- NOTE | 2018-05-16 12:07 | PDOC PROGRESS REPORT ---
Subjective Progress Note for:: 05/16/18 Subjective:: intubated and sedated Reason For Visit: GI BLEED Physical Exam Vital Signs: Temp Pulse Resp BP Pulse Ox 99.7 F 98 9 L 156/81 H 100 05/16/18 05:56 05/15/18 23:06 05/16/18 09:00 05/16/18 08:40 05/16/18 09:00 Intake & Output 05/15/18 05/16/18 05/17/18 06:59 06:59 06:59 Intake Total 2530 3831 814 Output Total 1100 2125 75 Balance 1430 1706 739 Weight 58.2 kg 63.4 kg Exam: abd is soft. Colostomy viable without bloody drainage NGT in place Conjunctiva pink this time Results Laboratory Results: 05/16/18 06:00 05/12/18 05/15/18 05/15/18 21:05 14:30 17:54 WBC RBC Hgb Hct MCV MCH MCHC RDW Plt Count Seg Neutrophils % Lymphocytes % Monocytes % Eosinophils % Basophils % Absolute Neutrophils Absolute Lymphocytes Absolute Monocytes Absolute Eosinophils Absolute Basophils Sodium 126.7 L Potassium 2.9 L* Chloride 98 Carbon Dioxide 22 Anion Gap 7 BUN 9 Creatinine 0.55 Est GFR ( Amer) > 60 Est GFR (Non-Af Amer) > 60 Glucose 129 H Calcium 6.8 L* Magnesium Ammonia 12.4 Albumin Blood Type A POSITIVE Antibody Screen NEGATIVE 05/15/18 05/15/18 05/15/18 17:54 17:54 19:00 WBC 17.5 H RBC 2.37 L Hgb 7.3 L Hct 20.8 L MCV 88 MCH 30.9 MCHC 35.2 RDW 14.0 Plt Count 176 Seg Neutrophils % Not Reportable Lymphocytes % Not Reportable Monocytes % Not Reportable Eosinophils % Not Reportable Basophils % Not Reportable Absolute Neutrophils Not Reportable Absolute Lymphocytes Not Reportable Absolute Monocytes Not Reportable Absolute Eosinophils Not Reportable Absolute Basophils Not Reportable Sodium Potassium Chloride Carbon Dioxide Anion Gap BUN Creatinine Est GFR ( Amer) Est GFR (Non-Af Amer) Glucose Calcium Magnesium 1.1 L* Ammonia Albumin Blood Type A POSITIVE Antibody Screen NEGATIVE 05/15/18 05/15/18 05/15/18 21:32 21:32 21:32 WBC 13.5 H RBC 2.34 L Hgb 7.3 L Hct 20.6 L MCV 88 MCH 31.1 MCHC 35.3 RDW 14.0 Plt Count 104 L Seg Neutrophils % 85.6 H Lymphocytes % 5.1 L Monocytes % 9.2 Eosinophils % 0.0 Basophils % 0.1 Absolute Neutrophils 11.5 H Absolute Lymphocytes 0.7 Absolute Monocytes 1.2 Absolute Eosinophils 0.0 Absolute Basophils 0.0 Sodium 126.7 L Potassium 3.4 L Chloride 99 Carbon Dioxide 21 L Anion Gap 7 BUN 8 Creatinine 0.53 Est GFR ( Amer) > 60 Est GFR (Non-Af Amer) > 60 Glucose 130 H Calcium 7.6 L 7.6 L Magnesium 1.1 L* Ammonia Albumin 2.3 L Blood Type Antibody Screen 05/16/18 05/16/18 05/16/18 03:30 03:30 06:00 WBC 24.8 H RBC 3.72 Hgb 11.4 L D Hct 31.6 L MCV 85 MCH 30.7 MCHC 36.2 H RDW 13.8 Plt Count 70 L Seg Neutrophils % Not Reportable Lymphocytes % Not Reportable Monocytes % Not Reportable Eosinophils % Not Reportable Basophils % Not Reportable Absolute Neutrophils Not Reportable Absolute Lymphocytes Not Reportable Absolute Monocytes Not Reportable Absolute Eosinophils Not Reportable Absolute Basophils Not Reportable Sodium 130.1 L 128.7 L Potassium 2.4 L* D 3.1 L Chloride 100 101 Carbon Dioxide 21 L 19 L Anion Gap 9 9 BUN 8 8 Creatinine 0.53 0.56 Est GFR ( Amer) > 60 > 60 Est GFR (Non-Af Amer) > 60 > 60 Glucose 144 H 171 H Calcium 7.4 L 6.9 L* Magnesium 1.1 L* 2.2 D Ammonia Albumin 2.4 L Blood Type Antibody Screen 05/16/18 06:00 WBC RBC Hgb Hct MCV MCH MCHC RDW Plt Count Seg Neutrophils % Lymphocytes % Monocytes % Eosinophils % Basophils % Absolute Neutrophils Absolute Lymphocytes Absolute Monocytes Absolute Eosinophils Absolute Basophils Sodium Potassium Chloride Carbon Dioxide Anion Gap BUN Creatinine Est GFR ( Amer) Est GFR (Non-Af Amer) Glucose Calcium Magnesium Ammonia Albumin 2.3 L Blood Type Antibody Screen 05/15/18 14:30 Troponin I < 0.012 Impressions: Head CT 05/15/18 11:11 IMPRESSION: NORMAL BRAIN CT WITHOUT CONTRAST. EVIDENCE OF ACUTE STROKE: NO. Chest X-Ray 05/16/18 00:00 IMPRESSION: NO ACUTE DISEASE. Assessment & Plan - Diagnosis (1) GI bleed Qualifiers: GI bleed type/associated pathology: unspecified gastrointestinal hemorrhage type Qualified Code(s): K92.2 - Gastrointestinal hemorrhage, unspecified Is this a current diagnosis for this admission?: Yes - Time Time Spent with patient: 15-24 minutes - Inpatient Certification Medical Necessity: Need Close Monitoring Due to Risk of Patient Decompensation, Need For IV Fluids, Need For Continuous Telemetry Monitoring, Need for IV Antibiotics - Plan Summary Plan Summary: Vent mx c/o pulmonary Hb up to 11 this am. Hold blood transfusion for now.
[2018-05-16 12:14] LABS: HEMOGLOBIN 11.1 g/dL (12.0-15.5); MEAN CORPUSCULAR HEMOGLOBIN 30.5 pg (27.0-33.4); MEAN CORPUSCULAR HGB CONC 35.7 g/dL (32.0-36.0); MEAN CORPUSCULAR VOLUME 86 fl (80-97); PLATELET COUNT 107 10^3/uL (150-450); RED BLOOD COUNT 3.63 10^6/uL (3.72-5.28); RED CELL DISTRIBUTION WIDTH 13.8 % (11.5-14.0); WHITE BLOOD COUNT 22.1 10^3/uL (4.0-10.5)
[2018-05-16 12:34] LABS: ABSOLUTE LYMPHOCYTES# (MANUAL) 2.2 10^3/uL (0.5-4.7); ABSOLUTE MONOCYTES # (MANUAL) 1.3 10^3/uL (0.1-1.4); ABSOLUTE NEUTROPHILS# (MANUAL) 18.6 10^3/uL (1.7-8.2); BASOPHILS % (MANUAL) 0 % (0-2); EOSINOPHILS % (MANUAL) 0 % (0-6); LYMPHOCYTES % (MANUAL) 10 % (13-45); MONOCYTES % (MANUAL) 6 % (3-13); SEGMENTED NEUTROPHILS % (MAN) 84 % (42-78); TOTAL CELLS COUNTED 100
[2018-05-16 12:35] LABS: OVALOCYTES SLIGHT; PLATELET COMMENT DECREASED; PLATELET LARGE PRESENT; POIKILOCYTOSIS SLIGHT; TOXIC GRANULATION 1+
--- NOTE | 2018-05-16 13:05 | OPERATIVE REPORT E ---
Operative Report NAME: KATYA BANKS : 1940 AGE: 77Y DATE OF SURGERY: 05/16/2018 ROOM: 609 PREOPERATIVE DIAGNOSIS: Bleeding from the distal descending colon and proximal sigmoid colon as noted on colonoscopy. POSTOPERATIVE DIAGNOSIS: Bleeding from the distal descending colon and proximal sigmoid colon as noted on colonoscopy. OPERATION: Exploratory laparotomy, colon resection with descending colon colostomy and Reyes's pouch. SURGEON: JOSE G OHARA M.D. ANESTHESIA: General. INDICATION: This is a 77-year-old female admitted on 05/12/2018 for lower GI bleed. She had a total of about 7 units of packed cells and about 4 units of fresh-frozen plasma. She continued to have a bloody bowel movement. This evening, the patient underwent a colonoscopy by Dr. Hankins and found bleeding around the area of the distal descending colon and proximal sigmoid colon or about 50 cm from the anal verge. This area was then tattooed by Dr. Hankins. The patient then brought to the intensive care unit where she continued to have at least 3 large bloody bowel movements. Her heart rate went up to 122 and blood pressure was low 100. Also, her mental status appears to have decreased. Because of this and the fact that waiting to transfer to [facility] may not be in the patient's best interest because of continued bleeding would slow use of her clotting factors, and therefore further bleeding will be expected, this will make things a lot worse in this 77-year-old female. I was able to talk to the daughter at length and obtain consent for exploratory laparotomy, resection of tattooed area of the colon, and colostomy. I was with Dr Rodriguez who did patient's colonoscopy. There was blood from the cecum to the rectosigmoid . Found a bleeder at 50 cm nirav of the colonoscopy. I discussed procedure with patient,s daughter that resection and colostomy will be the most expeditious procedure on her 77 y.o Mom. Also, not sure if there may be other more proximal bleeder. We will know if there is proximal bleeding from the colostomy. She agreed and gives consent. DESCRIPTION OF PROCEDURE: After adequate general anesthesia, the patient placed in the supine position, the abdomen prepped and draped in the usual sterile fashion. Appropriate timeout was called. Next, a midline incision was made above the umbilicus and just above the symphysis pubis. The midline fascia was opened and abdominal cavity entered. Immediately noticeable was the tattooed area on the distal descending colon. Also, the patient had multiple diverticuloses towards the distal sigmoid area. At this point, the sigmoid colon right where the diverticulosis decreased was then divided with a RANDOLPH stapler. This was about 10 cm from the peritoneal reflection.Next, the tattooed part of the bowel on the descending colon was then identified and then subsequently divided, at least 5 cm proximal to the tattoed area with the use of a RANDOLPH stapler. The mesentery was then divided with a LigaSure. The resected colon, about 25 cm was then brought out of the OR table to be sent to Pathology. The rest of the abdomen was then explored. Small bowel was checked from the ligament of Treitz to the cecum which was noted to be normal. The cecum as well as the ascending and transverse colon were noted to have no gross clots inside the lumen. The patient did have a small amount of clear fluid in the abdominal cavity. The abdominal cavity was then irrigated with at least a liter of fluid. Next, the descending colon was then mobilized through the lateral ligament of Toldz with the use of cautery. The splenic flexure was not mobilized. An area in the left lower quadrant was then identified, and a 2.5 cm circumferential skin was excised with the use of cautery. The fascia was then divided in a cruciate manner using the cautery and allowing at least 3 fingers through the fascia and into the created defect on the skin. The distal descending colon was then brought up through the created defect in preparation for a colostomy making sure not to twist it. A Elsy was used to keep the bowel in place outside the skin. The abdominal cavity was then subsequently closed with running suture using #1-PDS starting from both ends of the incision and meeting just above the umbilicus and tying the two sutures together. The subcutaneous was then irrigated. The skin was then closed with ramu. Sterile dressings were placed over the incision. Following this, the colostomy was then opened and matured. Colostomy appeared viable. A colostomy appliance was placed over the colostomy. There was not any bleeding noted through the colostomy indicating likelihood of removing the bleeding area distal to it. The patient tolerated the procedure well. Needle, instrument, and sponge count were all correct. Estimated blood loss about 100 mL. The patient then brought to the intensive care unit in guarded condition, still intubated. DICTATING PHYSICIAN: JOSE G OHARA M.D. [id number] PHY#: [id number] ID: [id number] JOB#: [id number] ACCT: [id number] cc:JOSE G OHARA M.D. > [facility]
[2018-05-16 13:09] LABS: ARTERIAL BLOOD BASE EXCESS -4.9 mmol/L; ARTERIAL BLOOD H2CO3 0.82 mmol/L (1.05-1.35); ARTERIAL BLOOD O2 SATURATION 97.5 % (94-98); ARTERIAL BLOOD PCO2 27.1 mmHg (35-45); ARTERIAL BLOOD PH 7.44 (7.35-7.45); ARTERIAL BLOOD PO2 93.1 mmHg (80-100); ARTERIAL BLOOD TOTAL CO2 18.8 mmol/L (21-25)
[2018-05-16 13:10] LABS: ARTERIAL BLOOD FIO2 25%
--- NOTE | 2018-05-16 14:13 | PDOC PROGRESS REPORT ---
Subjective Subjective:: Patient was transferred to ICU due to worsening GI bleed and altered mental status yesterday. Please refer to the nurse's note. Patient extubated on 05/16/2017 around 1 PM. Patient is alert oriented 3 still in shock about her day yesterday and her surgery. Dr. Diggs and myself went to her bedside and explained to her what had happened. Today patient is denying to have any shortness of breath, fever, chills, nausea , vomiting, abdominal pain or any urinary symptoms. Reason For Visit: GI BLEED Physical Exam Vital Signs: Temp Pulse Resp BP Pulse Ox 99.7 F 98 9 L 156/81 H 100 05/16/18 05:56 05/15/18 23:06 05/16/18 09:00 05/16/18 08:40 05/16/18 09:00 Intake & Output 05/15/18 05/16/18 05/17/18 06:59 06:59 06:59 Intake Total 2530 3831 956 Output Total 1100 2125 375 Balance 1430 1706 581 Weight 58.2 kg 63.4 kg Results Laboratory Results: 05/16/18 11:46 05/16/18 06:00 05/12/18 05/15/18 05/15/18 21:05 14:30 17:54 WBC RBC Hgb Hct MCV MCH MCHC RDW Plt Count Seg Neutrophils % Lymphocytes % Monocytes % Eosinophils % Basophils % Absolute Neutrophils Absolute Lymphocytes Absolute Monocytes Absolute Eosinophils Absolute Basophils Carbonic Acid HCO3/H2CO3 Ratio ABG pH ABG pCO2 ABG pO2 ABG HCO3 ABG O2 Saturation ABG Base Excess FiO2 Sodium 126.7 L Potassium 2.9 L* Chloride 98 Carbon Dioxide 22 Anion Gap 7 BUN 9 Creatinine 0.55 Est GFR ( Amer) > 60 Est GFR (Non-Af Amer) > 60 Glucose 129 H Calcium 6.8 L* Magnesium Ammonia 12.4 Albumin Blood Type A POSITIVE Antibody Screen NEGATIVE 05/15/18 05/15/18 05/15/18 17:54 17:54 19:00 WBC 17.5 H RBC 2.37 L Hgb 7.3 L Hct 20.8 L MCV 88 MCH 30.9 MCHC 35.2 RDW 14.0 Plt Count 176 Seg Neutrophils % Not Reportable Lymphocytes % Not Reportable Monocytes % Not Reportable Eosinophils % Not Reportable Basophils % Not Reportable Absolute Neutrophils Not Reportable Absolute Lymphocytes Not Reportable Absolute Monocytes Not Reportable Absolute Eosinophils Not Reportable Absolute Basophils Not Reportable Carbonic Acid HCO3/H2CO3 Ratio ABG pH ABG pCO2 ABG pO2 ABG HCO3 ABG O2 Saturation ABG Base Excess FiO2 Sodium Potassium Chloride Carbon Dioxide Anion Gap BUN Creatinine Est GFR ( Amer) Est GFR (Non-Af Amer) Glucose Calcium Magnesium 1.1 L* Ammonia Albumin Blood Type A POSITIVE Antibody Screen NEGATIVE 05/15/18 05/15/18 05/15/18 21:32 21:32 21:32 WBC 13.5 H RBC 2.34 L Hgb 7.3 L Hct 20.6 L MCV 88 MCH 31.1 MCHC 35.3 RDW 14.0 Plt Count 104 L Seg Neutrophils % 85.6 H Lymphocytes % 5.1 L Monocytes % 9.2 Eosinophils % 0.0 Basophils % 0.1 Absolute Neutrophils 11.5 H Absolute Lymphocytes 0.7 Absolute Monocytes 1.2 Absolute Eosinophils 0.0 Absolute Basophils 0.0 Carbonic Acid HCO3/H2CO3 Ratio ABG pH ABG pCO2 ABG pO2 ABG HCO3 ABG O2 Saturation ABG Base Excess FiO2 Sodium 126.7 L Potassium 3.4 L Chloride 99 Carbon Dioxide 21 L Anion Gap 7 BUN 8 Creatinine 0.53 Est GFR ( Amer) > 60 Est GFR (Non-Af Amer) > 60 Glucose 130 H Calcium 7.6 L 7.6 L Magnesium 1.1 L* Ammonia Albumin 2.3 L Blood Type Antibody Screen 05/16/18 05/16/18 05/16/18 03:30 03:30 06:00 WBC 24.8 H RBC 3.72 Hgb 11.4 L D Hct 31.6 L MCV 85 MCH 30.7 MCHC 36.2 H RDW 13.8 Plt Count 70 L Seg Neutrophils % Not Reportable Lymphocytes % Not Reportable Monocytes % Not Reportable Eosinophils % Not Reportable Basophils % Not Reportable Absolute Neutrophils Not Reportable Absolute Lymphocytes Not Reportable Absolute Monocytes Not Reportable Absolute Eosinophils Not Reportable Absolute Basophils Not Reportable Carbonic Acid HCO3/H2CO3 Ratio ABG pH ABG pCO2 ABG pO2 ABG HCO3 ABG O2 Saturation ABG Base Excess FiO2 Sodium 130.1 L 128.7 L Potassium 2.4 L* D 3.1 L Chloride 100 101 Carbon Dioxide 21 L 19 L Anion Gap 9 9 BUN 8 8 Creatinine 0.53 0.56 Est GFR ( Amer) > 60 > 60 Est GFR (Non-Af Amer) > 60 > 60 Glucose 144 H 171 H Calcium 7.4 L 6.9 L* Magnesium 1.1 L* 2.2 D Ammonia Albumin 2.4 L Blood Type Antibody Screen 05/16/18 05/16/18 05/16/18 06:00 11:46 12:50 WBC 22.1 H RBC 3.63 L Hgb 11.1 L Hct 31.0 L MCV 86 MCH 30.5 MCHC 35.7 RDW 13.8 Plt Count 107 L Seg Neutrophils % Not Reportable Lymphocytes % Not Reportable Monocytes % Not Reportable Eosinophils % Not Reportable Basophils % Not Reportable Absolute Neutrophils Not Reportable Absolute Lymphocytes Not Reportable Absolute Monocytes Not Reportable Absolute Eosinophils Not Reportable Absolute Basophils Not Reportable Carbonic Acid 0.82 L HCO3/H2CO3 Ratio 21:1 ABG pH 7.44 ABG pCO2 27.1 L ABG pO2 93.1 ABG HCO3 18.0 L ABG O2 Saturation 97.5 ABG Base Excess -4.9 FiO2 25% Sodium Potassium Chloride Carbon Dioxide Anion Gap BUN Creatinine Est GFR ( Amer) Est GFR (Non-Af Amer) Glucose Calcium Magnesium Ammonia Albumin 2.3 L Blood Type Antibody Screen 05/15/18 14:30 Troponin I < 0.012 Impressions: Head CT 05/15/18 11:11 IMPRESSION: NORMAL BRAIN CT WITHOUT CONTRAST. EVIDENCE OF ACUTE STROKE: NO. Chest X-Ray 05/16/18 00:00 IMPRESSION: NO ACUTE DISEASE. Assessment & Plan - Diagnosis (1) GI bleed Qualifiers: GI bleed type/associated pathology: unspecified gastrointestinal hemorrhage type Qualified Code(s): K92.2 - Gastrointestinal hemorrhage, unspecified Is this a current diagnosis for this admission?: Yes Plan: Patient was admitted on 05/12/2018 for acute GI bleed. GI/surgery was consulted for possible upper and lower GI endoscopy. Unfortunately patient was not able to finish her bowel preparation stating that was making her sick. Upper GI endoscopy was done but colonoscopy was delayed due to the above-mentioned reason. Yesterday morning patient was alert and oriented very cooperative and she was trying to finish her bowel prep but as the day progressed she had multiple hematochezia and she became confused, CT head was negative for any stroke. Patient received multiple PRBCs fresh frozen plasma and platelets however GI bleed did not stop. Unfortunately surgery was not able to take her earlier in the day because of their schedule. I contacted surgery multiple times during the day and talked to the staff and talked to Dr. Sandoval and told him about the urgency of intervention but unfortunately due to their busy schedule they are not able to take the patient to the OR until later that day. I called [facility] to arrange a transfer for urgent colonoscopy however they could not take her immediately because of the schedule. Plan was made to transfer the patient [facility] as soon as possible. While waiting to be then taken to the OR by our surgery team or be transferred to [facility] medical she became more confused and had more hematochezia with one episode of vomiting patient was intubated and taken to ICU. Or surgeries and was able to take her to OR where colonoscopy done and diverticular bleed was found. Diverticular bleed could not be stopped and patient had a bowel resection with a temporary colostomy. Please refer to surgery note. Status post extubation. Patient alert and oriented 3. Expresses shock about her surgery and her day yesterday. (2) HTN (hypertension) Is this a current diagnosis for this admission?: Yes Plan: Started on furosemide and losartan. Will monitor volume status and vitals (3) History of diverticulosis Is this a current diagnosis for this admission?: Yes Plan: Complicated diverticular bleed. Status post bowel resection and colostomy. Xarelto on hold (4) History of breast cancer in female Is this a current diagnosis for this admission?: Yes Plan: Outpatient oncology follow-up (5) History of DVT (deep vein thrombosis) Is this a current diagnosis for this admission?: Yes Plan: Left upper extremity DVT. Hold Xarelto due to acute GI bleed (6) Constipation Plan: Patient has history of constipation however will hold bowel regimen due to recent GI bleed. Restart once GI bleed has resolved (7) Chronic lower back pain Is this a current diagnosis for this admission?: Yes Plan: Restart hydrocodone and tizanidine, duloxetine. Physical therapy (8) Lymphedema Plan: Left upper extremity due to complication of breast cancer. Restart clindamycin. Patient states that she has been on chronic clindamycin for lymphedema flare
[2018-05-16 15:39] LABS: HEMATOCRIT 28.4 % (36.0-47.0); HEMOGLOBIN 10.3 g/dL (12.0-15.5); MEAN CORPUSCULAR HGB CONC 36.1 g/dL (32.0-36.0); MEAN CORPUSCULAR VOLUME 86 fl (80-97); PLATELET COUNT 109 10^3/uL (150-450); RED BLOOD COUNT 3.31 10^6/uL (3.72-5.28); RED CELL DISTRIBUTION WIDTH 14.1 % (11.5-14.0)
[2018-05-16] MEDS: MORPHINE SULFATE 10 MG/ML INJ IV PRN ×3 (15:51→22:09)
[2018-05-16] MEDS: NORMAL SALINE 1000 ML 1,000 ML IV PRN (15:53)
[2018-05-16 16:10] LABS: ANION GAP 7 (5-19); BLOOD UREA NITROGEN 10 mg/dL (7-20); CARBON DIOXIDE 23 mmol/L (22-30); CHLORIDE 99 mmol/L (98-107); GLUCOSE 110 mg/dL (75-110); POTASSIUM 3.6 mmol/L (3.6-5.0); SODIUM 128.5 mmol/L (137-145)
[2018-05-16 16:25] LABS: CALCIUM 6.8 mg/dL (8.4-10.2)
[2018-05-16] MEDS ORDERED: MAGNESIUM SULFATE/D5W 0 GM/0 ML RTUPB IV ONE (17:02)
[2018-05-16] MEDS ORDERED: MAGNESIUM SULFATE/D5W 1 GM/100 ML RTUPB IV ONE (17:33)
[2018-05-16] MEDS ORDERED: CALCIUM GLUCONATE 1000 MG/10 ML INJ IV PRN (17:45)
[2018-05-16] MEDS ORDERED: CALCIUM GLUCONATE 2,000 MG in DEXTROSE 5%-WATER 100 ML IV ONE (17:45)
[2018-05-16] MEDS ORDERED: MAGNESIUM SULFATE/D5W 1 GM/100 ML RTUPB IV SCH (17:45)
[2018-05-17 00:01] LABS: HEMATOCRIT 25.7 % (36.0-47.0); HEMOGLOBIN 9.1 g/dL (12.0-15.5); MEAN CORPUSCULAR HEMOGLOBIN 30.8 pg (27.0-33.4); MEAN CORPUSCULAR HGB CONC 35.6 g/dL (32.0-36.0); MEAN CORPUSCULAR VOLUME 87 fl (80-97); PLATELET COUNT 147 10^3/uL (150-450); RED BLOOD COUNT 2.97 10^6/uL (3.72-5.28); RED CELL DISTRIBUTION WIDTH 14.3 % (11.5-14.0)
[2018-05-17] MEDS: NORMAL SALINE 1000 ML 1,000 ML IV PRN ×3 (02:00→21:46)
[2018-05-17] MEDS: METRONIDAZOLE 500 MG/NS RTU 500 MG/100 ML RTUPB IV SCH ×2 (03:01→09:29)
[2018-05-17] MEDS: LEVOTHYROXINE SODIUM 0.1 MG TABLET PO SCH (05:45)
[2018-05-17 06:16] LABS: HEMOGLOBIN 8.1 g/dL (12.0-15.5); MEAN CORPUSCULAR HEMOGLOBIN 30.8 pg (27.0-33.4); MEAN CORPUSCULAR HGB CONC 35.2 g/dL (32.0-36.0); MEAN CORPUSCULAR VOLUME 87 fl (80-97); PLATELET COUNT 152 10^3/uL (150-450); RED BLOOD COUNT 2.64 10^6/uL (3.72-5.28); RED CELL DISTRIBUTION WIDTH 14.3 % (11.5-14.0); WHITE BLOOD COUNT 21.2 10^3/uL (4.0-10.5)
[2018-05-17 06:21] LABS: ARTERIAL BLOOD BASE EXCESS -0.1 mmol/L; ARTERIAL BLOOD H2CO3 1.11 mmol/L (1.05-1.35); ARTERIAL BLOOD HCO3 24.1 mmol/L (20-24); ARTERIAL BLOOD PH 7.43 (7.35-7.45); ARTERIAL BLOOD PO2 104.8 mmHg (80-100); ARTERIAL BLOOD TOTAL CO2 25.2 mmol/L (21-25)
[2018-05-17 06:26] LABS: ARTERIAL BLOOD FIO2 20%
[2018-05-17 07:03] LABS: ALANINE AMINOTRANSFERASE 27 U/L (9-52); ALBUMIN 1.9 g/dL (3.5-5.0); ALKALINE PHOSPHATASE 38 U/L (38-126); ANION GAP 6 (5-19); ASPARTATE AMINO TRANSFERASE 19 U/L (14-36); BILIRUBIN,DIRECT 0.3 mg/dL (0.0-0.4); BILIRUBIN,TOTAL 0.5 mg/dL (0.2-1.3); BLOOD UREA NITROGEN 13 mg/dL (7-20); CARBON DIOXIDE 22 mmol/L (22-30); CHLORIDE 108 mmol/L (98-107); GLUCOSE 106 mg/dL (75-110); SODIUM 136.2 mmol/L (137-145); TOTAL PROTEIN 3.8 g/dL (6.3-8.2); TRIGLYCERIDES 71 mg/dL (<150)
[2018-05-17 07:22] LABS: ABSOLUTE LYMPHOCYTES# (MANUAL) 0.4 10^3/uL (0.5-4.7); ABSOLUTE MONOCYTES # (MANUAL) 1.3 10^3/uL (0.1-1.4); ABSOLUTE NEUTROPHILS# (MANUAL) 19.5 10^3/uL (1.7-8.2); BASOPHILS % (MANUAL) 0 % (0-2); EOSINOPHILS % (MANUAL) 0 % (0-6); LYMPHOCYTES % (MANUAL) 2 % (13-45); MONOCYTES % (MANUAL) 6 % (3-13); SEGMENTED NEUTROPHILS % (MAN) 92 % (42-78); TOTAL CELLS COUNTED 100
[2018-05-17 07:24] LABS: CALCIUM 6.8 mg/dL (8.4-10.2); OVALOCYTES SLIGHT; POIKILOCYTOSIS SLIGHT; POTASSIUM 2.9 mmol/L (3.6-5.0); TOXIC GRANULATION SLIGHT
[2018-05-17 07:25] LABS: HELMET CELLS 1+; PLATELET COMMENT ADEQUATE
[2018-05-17] MEDS ORDERED: GUAIFENESIN SYRP 200 MG/10 ML UDC PO PRN (08:03)
[2018-05-17] MEDS: POTASSIUM CHLORIDE 20 MEQ/50 ML RTU IV SCH ×3 (08:09→12:02)
--- NOTE | 2018-05-17 08:24 | RADIOLOGY REPORT (SQ) ---
EXAM DESCRIPTION: CHEST SINGLE VIEW COMPLETED DATE/TIME: 05/17/2018 7:17 am REASON FOR STUDY: resp failure COMPARISON: None. EXAM PARAMETERS: NUMBER OF VIEWS: One view. TECHNIQUE: Single frontal radiographic view of the chest acquired. RADIATION DOSE: NA LIMITATIONS: None. FINDINGS: LUNGS AND PLEURA: There are linear densities noted at the right lung base which could repr esent discoid atelectasis. MEDIASTINUM AND HILAR STRUCTURES: No masses. Contour normal. HEART AND VASCULAR STRUCTURES: Heart normal in size. Pulmonary vasculature normal. BONES: No acute findings. HARDWARE: Interval extubation. OTHER: NG tube overlying stomach. Right IJ line overlying right atrium. Status post left mastectomy . IMPRESSION: Right basilar discoid atelectasis. Otherwise, no acute disease. TECHNICAL DOCUMENTATION: JOB ID: [id number] [employer]- All Rights Reserved Reading location - IP/workstation name: [email or web address]
[2018-05-17] MEDS: FUROSEMIDE INJ/PF 20 MG/2 ML SDV IV SCH ×2 (09:29→21:07)
[2018-05-17] MEDS: PANTOPRAZOLE SODIUM 40 MG VIAL IV SCH (09:29)
[2018-05-17] MEDS: CLINDAMYCIN HCL 150 MG CAPSULE PO SCH (09:29)
[2018-05-17] MEDS: LOSARTAN POTASSIUM 25 MG TABLET PO SCH (09:30)
[2018-05-17] MEDS: ONDANSETRON HCL INJ/PF 4 MG/2 ML SDV IV PRN (10:20)
[2018-05-17] MEDS ORDERED: HYDROCODONE/ACETAMINOPHEN 10-325 MG TABLET PO PRN (11:46)
--- NOTE | 2018-05-17 11:51 | PDOC PROGRESS REPORT ---
Subjective Subjective:: Patient was transferred to ICU due to worsening GI bleed and altered mental status yesterday. Please refer to the nurse's note. Patient extubated on 05/16/2017 around 1 PM. No acute events overnight. Extubated yesterday successfully. Patient is quite pleasant and cooperative with a physical examination. Was not able to get a good night sleep due to pain in the surgical area also complaining of mild cough nonbloody nonproductive. Denies any chest pain, nausea, vomiting, urinary symptoms, or any shortness of breath, Reason For Visit: GI BLEED Physical Exam Vital Signs: Temp Pulse Resp BP Pulse Ox 99.5 F 87 16 141/58 H 98 05/17/18 10:07 05/17/18 08:34 05/17/18 11:30 05/17/18 11:10 05/17/18 07:50 Intake & Output 05/16/18 05/17/18 05/18/18 06:59 06:59 06:59 Intake Total 3831 3877 320 Output Total 2125 2825 Balance 1706 1052 320 Weight 63.4 kg 59 kg General appearance: PRESENT: no acute distress, well-developed, well-nourished Head exam: PRESENT: atraumatic, normocephalic Eye exam: PRESENT: conjunctiva pink, EOMI, PERRLA. ABSENT: scleral icterus Ear exam: PRESENT: normal external ear exam Mouth exam: PRESENT: moist, tongue midline Neck exam: ABSENT: carotid bruit, JVD, lymphadenopathy, thyromegaly Respiratory exam: PRESENT: clear to auscultation tiffany. ABSENT: rales, rhonchi, wheezes Cardiovascular exam: PRESENT: RRR. ABSENT: diastolic murmur, rubs, systolic murmur Pulses: PRESENT: normal dorsalis pedis pul Vascular exam: PRESENT: normal capillary refill GI/Abdominal exam: PRESENT: normal bowel sounds, soft, other - Surgical site intact covered with dressing, no sign of active bleeding or discharge. Ostomy is open ostomy and no blood in the ostomy bag. ABSENT: distended, guarding, mass, organolmegaly, rebound, tenderness Rectal exam: PRESENT: deferred Extremities exam: PRESENT: full ROM. ABSENT: calf tenderness, clubbing, pedal edema Neurological exam: PRESENT: alert, awake, oriented to person, oriented to place , oriented to time, oriented to situation, CN II-XII grossly intact. ABSENT: motor sensory deficit Psychiatric exam: PRESENT: appropriate affect, normal mood. ABSENT: homicidal ideation, suicidal ideation Skin exam: PRESENT: dry, intact, warm. ABSENT: cyanosis, rash Results Laboratory Results: 05/17/18 05:55 05/17/18 05:55 05/12/18 05/15/18 05/16/18 21:05 19:00 11:46 WBC 22.1 H RBC 3.63 L Hgb 11.1 L Hct 31.0 L MCV 86 MCH 30.5 MCHC 35.7 RDW 13.8 Plt Count 107 L Seg Neutrophils % Not Reportable Lymphocytes % Not Reportable Monocytes % Not Reportable Eosinophils % Not Reportable Basophils % Not Reportable Absolute Neutrophils Not Reportable Absolute Lymphocytes Not Reportable Absolute Monocytes Not Reportable Absolute Eosinophils Not Reportable Absolute Basophils Not Reportable Carbonic Acid HCO3/H2CO3 Ratio ABG pH ABG pCO2 ABG pO2 ABG HCO3 ABG O2 Saturation ABG Base Excess FiO2 Sodium Potassium Chloride Carbon Dioxide Anion Gap BUN Creatinine Est GFR ( Amer) Est GFR (Non-Af Amer) Glucose Calcium Magnesium Total Bilirubin AST ALT Alkaline Phosphatase Total Protein Albumin Triglycerides Blood Type A POSITIVE A POSITIVE Antibody Screen NEGATIVE NEGATIVE 05/16/18 05/16/18 05/16/18 11:46 12:50 14:30 WBC 25.0 H RBC 3.31 L Hgb 10.3 L Hct 28.4 L MCV 86 MCH 31.0 MCHC 36.1 H RDW 14.1 H Plt Count 109 L Seg Neutrophils % Lymphocytes % Monocytes % Eosinophils % Basophils % Absolute Neutrophils Absolute Lymphocytes Absolute Monocytes Absolute Eosinophils Absolute Basophils Carbonic Acid 0.82 L HCO3/H2CO3 Ratio 21:1 ABG pH 7.44 ABG pCO2 27.1 L ABG pO2 93.1 ABG HCO3 18.0 L ABG O2 Saturation 97.5 ABG Base Excess -4.9 FiO2 25% Sodium Potassium Chloride Carbon Dioxide Anion Gap BUN Creatinine Est GFR ( Amer) Est GFR (Non-Af Amer) Glucose Calcium Magnesium 1.2 L* D Total Bilirubin AST ALT Alkaline Phosphatase Total Protein Albumin Triglycerides Blood Type Antibody Screen 05/16/18 05/16/18 05/16/18 14:30 14:30 23:30 WBC 22.0 H RBC 2.97 L Hgb 9.1 L Hct 25.7 L MCV 87 MCH 30.8 MCHC 35.6 RDW 14.3 H Plt Count 147 L Seg Neutrophils % Lymphocytes % Monocytes % Eosinophils % Basophils % Absolute Neutrophils Absolute Lymphocytes Absolute Monocytes Absolute Eosinophils Absolute Basophils Carbonic Acid HCO3/H2CO3 Ratio ABG pH ABG pCO2 ABG pO2 ABG HCO3 ABG O2 Saturation ABG Base Excess FiO2 Sodium 128.5 L Potassium 3.6 Chloride 99 Carbon Dioxide 23 Anion Gap 7 BUN 10 Creatinine 0.70 Est GFR ( Amer) > 60 Est GFR (Non-Af Amer) > 60 Glucose 110 Calcium 6.8 L* Magnesium 2.3 D Total Bilirubin AST ALT Alkaline Phosphatase Total Protein Albumin Triglycerides Blood Type Antibody Screen 05/17/18 05/17/18 05/17/18 05:55 05:55 05:55 WBC 21.2 H RBC 2.64 L Hgb 8.1 L Hct 23.0 L MCV 87 MCH 30.8 MCHC 35.2 RDW 14.3 H Plt Count 152 Seg Neutrophils % Not Reportable Lymphocytes % Not Reportable Monocytes % Not Reportable Eosinophils % Not Reportable Basophils % Not Reportable Absolute Neutrophils Not Reportable Absolute Lymphocytes Not Reportable Absolute Monocytes Not Reportable Absolute Eosinophils Not Reportable Absolute Basophils Not Reportable Carbonic Acid 1.11 HCO3/H2CO3 Ratio 21:1 ABG pH 7.43 ABG pCO2 37.0 ABG pO2 104.8 H ABG HCO3 24.1 H ABG O2 Saturation 98.0 ABG Base Excess -0.1 FiO2 20% Sodium 136.2 L Potassium 2.9 L* Chloride 108 H Carbon Dioxide 22 Anion Gap 6 BUN 13 Creatinine 0.76 Est GFR ( Amer) > 60 Est GFR (Non-Af Amer) > 60 Glucose 106 Calcium 6.8 L* Magnesium 2.0 Total Bilirubin 0.5 AST 19 ALT 27 Alkaline Phosphatase 38 Total Protein 3.8 L Albumin 1.9 L Triglycerides 71 Blood Type Antibody Screen 05/15/18 14:30 Troponin I < 0.012 Impressions: Head CT 05/15/18 11:11 IMPRESSION: NORMAL BRAIN CT WITHOUT CONTRAST. EVIDENCE OF ACUTE STROKE: NO. Chest X-Ray 05/17/18 06:00 IMPRESSION: Right basilar discoid atelectasis. Otherwise, no acute disease. Assessment & Plan - Diagnosis (1) GI bleed Qualifiers: GI bleed type/associated pathology: unspecified gastrointestinal hemorrhage type Qualified Code(s): K92.2 - Gastrointestinal hemorrhage, unspecified Is this a current diagnosis for this admission?: Yes Plan: Patient was admitted on 05/12/2018 for acute GI bleed. GI/surgery was consulted for possible upper and lower GI endoscopy. Unfortunately patient was not able to finish her bowel preparation stating that was making her sick. Upper GI endoscopy was done but colonoscopy was delayed due to the above-mentioned reason. Yesterday morning patient was alert and oriented very cooperative and she was trying to finish her bowel prep but as the day progressed she had multiple hematochezia and she became confused, CT head was negative for any stroke. Patient received multiple PRBCs fresh frozen plasma and platelets however GI bleed did not stop. Unfortunately surgery was not able to take her earlier in the day because of their schedule. I contacted surgery multiple times during the day and talked to the staff and talked to Dr. Sandoval and told him about the urgency of intervention but unfortunately due to their busy schedule they are not able to take the patient to the OR until later that day. I called [facility] to arrange a transfer for urgent colonoscopy however they could not take her immediately because of the schedule. Plan was made to transfer the patient [facility] as soon as possible. While waiting to be then taken to the OR by our surgery team or be transferred to [facility] medical she became more confused and had more hematochezia with one episode of vomiting patient was intubated and taken to ICU. Or surgeries and was able to take her to OR where colonoscopy done and diverticular bleed was found. Diverticular bleed could not be stopped and patient had a bowel resection with a temporary colostomy. Please refer to surgery note. Status post extubation. Patient alert and oriented 3. Hemoglobin 8.1 today no sign of bleeding this could likely be due to the surgery. Will transfuse 1 PRBC monitor H&H. (2) HTN (hypertension) Is this a current diagnosis for this admission?: Yes Plan: Started on furosemide and losartan. Will monitor volume status and vitals (3) History of diverticulosis Is this a current diagnosis for this admission?: Yes Plan: Complicated diverticular bleed. Status post bowel resection and colostomy. Xarelto on hold (4) History of breast cancer in female Is this a current diagnosis for this admission?: Yes Plan: Outpatient oncology follow-up (5) History of DVT (deep vein thrombosis) Is this a current diagnosis for this admission?: Yes Plan: Left upper extremity DVT. Hold Xarelto due to acute GI bleed (6) Chronic lower back pain Is this a current diagnosis for this admission?: Yes Plan: Restart hydrocodone and tizanidine, duloxetine. Physical therapy (7) Lymphedema Is this a current diagnosis for this admission?: No Plan: Left upper extremity due to complication of breast cancer. Restart clindamycin. Patient states that she has been on chronic clindamycin for lymphedema flare (8) DVT prophylaxis Is this a current diagnosis for this admission?: Yes Plan: Continue mechanical DVT prophylaxis. No anticoagulation due to GI bleed.
[2018-05-17 14:49] LABS: HEMOGLOBIN 9.3 g/dL (12.0-15.5); MEAN CORPUSCULAR HEMOGLOBIN 30.1 pg (27.0-33.4); MEAN CORPUSCULAR HGB CONC 34.4 g/dL (32.0-36.0); MEAN CORPUSCULAR VOLUME 87 fl (80-97); PLATELET COUNT 168 10^3/uL (150-450); RED BLOOD COUNT 3.09 10^6/uL (3.72-5.28); RED CELL DISTRIBUTION WIDTH 14.1 % (11.5-14.0); WHITE BLOOD COUNT 20.4 10^3/uL (4.0-10.5)
[2018-05-17 15:07] LABS: BLOOD UREA NITROGEN 14 mg/dL (7-20); CALCIUM 7.4 mg/dL (8.4-10.2); GLUCOSE 110 mg/dL (75-110)
[2018-05-17 15:12] LABS: CARBON DIOXIDE 25 mmol/L (22-30); CHLORIDE 106 mmol/L (98-107); SODIUM 135.3 mmol/L (137-145)
[2018-05-17 15:20] LABS: ANION GAP 4 (5-19)
[2018-05-17 15:22] LABS: POTASSIUM 4.3 mmol/L (3.6-5.0)
[2018-05-17 19:44] LABS: BLOOD UREA NITROGEN 13 mg/dL (7-20); CALCIUM 7.4 mg/dL (8.4-10.2); GLUCOSE 101 mg/dL (75-110); POTASSIUM 3.6 mmol/L (3.6-5.0)
[2018-05-17 19:57] LABS: CARBON DIOXIDE 25 mmol/L (22-30); CHLORIDE 106 mmol/L (98-107); SODIUM 135.7 mmol/L (137-145)
[2018-05-17 20:09] LABS: ANION GAP 5 (5-19)
[2018-05-17] MEDS: MORPHINE SULFATE 10 MG/ML INJ IV PRN (20:30)
--- NOTE | 2018-05-17 21:12 | PDOC PROGRESS REPORT ---
Subjective Progress Note for:: 05/17/18 Subjective:: Mild incisional pains Reason For Visit: GI BLEED Physical Exam Vital Signs: Temp Pulse Resp BP Pulse Ox 100.0 F 88 16 147/61 H 98 05/17/18 19:47 05/17/18 20:00 05/17/18 18:00 05/17/18 16:00 05/17/18 16:00 Intake & Output 05/16/18 05/17/18 05/18/18 06:59 06:59 06:59 Intake Total 3831 3877 1924 Output Total 2125 2825 1710 Balance 1706 1052 214 Weight 63.4 kg 59 kg Exam: NGT has only 150 ccs from last night Colostomy viable but not functioning yet Incision dressing is dry Results Laboratory Results: 05/17/18 14:10 05/17/18 19:00 05/15/18 05/16/18 05/17/18 19:00 23:30 05:55 WBC 22.0 H RBC 2.97 L Hgb 9.1 L Hct 25.7 L MCV 87 MCH 30.8 MCHC 35.6 RDW 14.3 H Plt Count 147 L Seg Neutrophils % Lymphocytes % Monocytes % Eosinophils % Basophils % Absolute Neutrophils Absolute Lymphocytes Absolute Monocytes Absolute Eosinophils Absolute Basophils Carbonic Acid 1.11 HCO3/H2CO3 Ratio 21:1 ABG pH 7.43 ABG pCO2 37.0 ABG pO2 104.8 H ABG HCO3 24.1 H ABG O2 Saturation 98.0 ABG Base Excess -0.1 FiO2 20% Sodium Potassium Chloride Carbon Dioxide Anion Gap BUN Creatinine Est GFR ( Amer) Est GFR (Non-Af Amer) Glucose Calcium Magnesium Total Bilirubin AST ALT Alkaline Phosphatase Total Protein Albumin Triglycerides Blood Type A POSITIVE Antibody Screen NEGATIVE 05/17/18 05/17/18 05/17/18 05:55 05:55 14:10 WBC 21.2 H 20.4 H RBC 2.64 L 3.09 L Hgb 8.1 L 9.3 L Hct 23.0 L 27.0 L MCV 87 87 MCH 30.8 30.1 MCHC 35.2 34.4 RDW 14.3 H 14.1 H Plt Count 152 168 Seg Neutrophils % Not Reportable Lymphocytes % Not Reportable Monocytes % Not Reportable Eosinophils % Not Reportable Basophils % Not Reportable Absolute Neutrophils Not Reportable Absolute Lymphocytes Not Reportable Absolute Monocytes Not Reportable Absolute Eosinophils Not Reportable Absolute Basophils Not Reportable Carbonic Acid HCO3/H2CO3 Ratio ABG pH ABG pCO2 ABG pO2 ABG HCO3 ABG O2 Saturation ABG Base Excess FiO2 Sodium 136.2 L Potassium 2.9 L* Chloride 108 H Carbon Dioxide 22 Anion Gap 6 BUN 13 Creatinine 0.76 Est GFR ( Amer) > 60 Est GFR (Non-Af Amer) > 60 Glucose 106 Calcium 6.8 L* Magnesium 2.0 Total Bilirubin 0.5 AST 19 ALT 27 Alkaline Phosphatase 38 Total Protein 3.8 L Albumin 1.9 L Triglycerides 71 Blood Type Antibody Screen 05/17/18 05/17/18 14:10 19:00 WBC RBC Hgb Hct MCV MCH MCHC RDW Plt Count Seg Neutrophils % Lymphocytes % Monocytes % Eosinophils % Basophils % Absolute Neutrophils Absolute Lymphocytes Absolute Monocytes Absolute Eosinophils Absolute Basophils Carbonic Acid HCO3/H2CO3 Ratio ABG pH ABG pCO2 ABG pO2 ABG HCO3 ABG O2 Saturation ABG Base Excess FiO2 Sodium 135.3 L 135.7 L Potassium 4.3 D 3.6 Chloride 106 106 Carbon Dioxide 25 25 Anion Gap 4 L 5 BUN 14 13 Creatinine 0.73 0.62 Est GFR ( Amer) > 60 > 60 Est GFR (Non-Af Amer) > 60 > 60 Glucose 110 101 Calcium 7.4 L 7.4 L Magnesium Total Bilirubin AST ALT Alkaline Phosphatase Total Protein Albumin Triglycerides Blood Type Antibody Screen 05/15/18 14:30 Troponin I < 0.012 Impressions: Head CT 05/15/18 11:11 IMPRESSION: NORMAL BRAIN CT WITHOUT CONTRAST. EVIDENCE OF ACUTE STROKE: NO. Chest X-Ray 05/17/18 06:00 IMPRESSION: Right basilar discoid atelectasis. Otherwise, no acute disease. Assessment & Plan - Diagnosis (1) GI bleed Qualifiers: GI bleed type/associated pathology: unspecified gastrointestinal hemorrhage type Qualified Code(s): K92.2 - Gastrointestinal hemorrhage, unspecified Is this a current diagnosis for this admission?: Yes - Time Time Spent with patient: 15-24 minutes - Inpatient Certification Medical Necessity: Need Close Monitoring Due to Risk of Patient Decompensation, Need For IV Fluids, Need for Pain Control, Need for IV Antibiotics - Plan Summary Plan Summary: D/C NGT but keep NPO today since colostomy not functioning yet on POD #2 Continue IV antibiotics 24-48 hrs. Elevated WBC probably more from multiple blood transfusions. No definite evidence of infection though may have mild aspiration just pre-op. CXR though is normal.
[2018-05-17] MEDS: ATORVASTATIN CALCIUM 20 MG TABLET PO SCH (21:45)
[2018-05-17] MEDS ORDERED: (PENDING PHARMACY ID) (Zolpidem Tartrate [Ambien] 10 MG) PO SCH (22:00)
[2018-05-17] MEDS ORDERED: ZOLPIDEM TARTRATE 5 MG TABLET PO SCH (22:00)
[2018-05-18] MEDS: LEVOTHYROXINE SODIUM 0.1 MG TABLET PO SCH (05:17)
[2018-05-18] MEDS: NORMAL SALINE 1000 ML 1,000 ML IV PRN ×3 (05:17→23:59)
[2018-05-18 05:56] LABS: ALANINE AMINOTRANSFERASE 22 U/L (9-52); ALBUMIN 1.9 g/dL (3.5-5.0); ALKALINE PHOSPHATASE 41 U/L (38-126); ANION GAP 6 (5-19); ASPARTATE AMINO TRANSFERASE 17 U/L (14-36); BILIRUBIN,DIRECT 0.3 mg/dL (0.0-0.4); BILIRUBIN,TOTAL 0.5 mg/dL (0.2-1.3); BLOOD UREA NITROGEN 13 mg/dL (7-20); CALCIUM 7.4 mg/dL (8.4-10.2); CARBON DIOXIDE 23 mmol/L (22-30); CHLORIDE 109 mmol/L (98-107); GLUCOSE 89 mg/dL (75-110); POTASSIUM 3.2 mmol/L (3.6-5.0); SODIUM 137.6 mmol/L (137-145); TOTAL PROTEIN 3.9 g/dL (6.3-8.2)
[2018-05-18 07:05] LABS: HEMATOCRIT 24.5 % (36.0-47.0); HEMOGLOBIN 8.6 g/dL (12.0-15.5); MEAN CORPUSCULAR HEMOGLOBIN 30.9 pg (27.0-33.4); MEAN CORPUSCULAR HGB CONC 34.9 g/dL (32.0-36.0); MEAN CORPUSCULAR VOLUME 89 fl (80-97); PLATELET COUNT 209 10^3/uL (150-450); RED BLOOD COUNT 2.77 10^6/uL (3.72-5.28); RED CELL DISTRIBUTION WIDTH 14.2 % (11.5-14.0); WHITE BLOOD COUNT 17.2 10^3/uL (4.0-10.5)
[2018-05-18 07:44] LABS: ABSOLUTE MONOCYTES # (MANUAL) 0.5 10^3/uL (0.1-1.4); ABSOLUTE NEUTROPHILS# (MANUAL) 16.7 10^3/uL (1.7-8.2); BASOPHILS % (MANUAL) 0 % (0-2); EOSINOPHILS % (MANUAL) 0 % (0-6); HYPERSEGMENTED NEUTROPHILS PRESENT; LYMPHOCYTES % (MANUAL) 0 % (13-45); MONOCYTES % (MANUAL) 3 % (3-13); SEGMENTED NEUTROPHILS % (MAN) 97 % (42-78); TOTAL CELLS COUNTED 100
[2018-05-18 07:45] LABS: ANISOCYTOSIS SLIGHT; PLATELET COMMENT ADEQUATE
--- NOTE | 2018-05-18 08:36 | RADIOLOGY REPORT (SQ) ---
EXAM DESCRIPTION: CHEST SINGLE VIEW COMPLETED DATE/TIME: 05/18/2018 7:10 am REASON FOR STUDY: copd COMPARISON: 05/17/2018 NUMBER OF VIEWS: One view. TECHNIQUE: Single frontal radiographic image of the chest acquired. LIMITATIONS: None. FINDINGS: LUNGS AND PLEURA: Stable appearance. Postsurgical changes right lower lung. Apical pleur al thickening. Trace left pleural effusion. No pneumothorax. MEDIASTINUM AND HEART: Stable heart size and mediastinal structures. SUPPORT DEVICES: Appropriate location without change. BONY STRUCTURES: No acute findings. HARDWARE: None. OTHER: No other significant finding. IMPRESSION: STABLE APPEARANCE OF THE CHEST. SUPPORT DEVICES UNCHANGED. Reading location - IP/workstation name: [email or web address]
[2018-05-18] MEDS: FUROSEMIDE INJ/PF 20 MG/2 ML SDV IV SCH ×2 (09:21→21:03)
[2018-05-18] MEDS: KETOROLAC TROMETHAMINE INJ/PF 30 MG/1 ML SDV IV PRN ×2 (10:01→21:48)
[2018-05-18] MEDS: PANTOPRAZOLE SODIUM 40 MG VIAL IV SCH (10:05)
[2018-05-18] MEDS: ONDANSETRON HCL INJ/PF 4 MG/2 ML SDV IV PRN (10:21)
[2018-05-18] MEDS: POTASSIUM CHLORIDE 20 MEQ/50 ML RTU IV SCH ×2 (10:23→12:12)
--- NOTE | 2018-05-18 13:11 | PDOC PROGRESS REPORT ---
Subjective Progress Note for:: 05/18/18 Subjective:: Patient was transferred to ICU due to worsening GI bleed and altered mental status yesterday. Please refer to the nurse's note. Patient extubated on 05/16/2017 around 1 PM. No acute events overnight. Still complaining of pain over the surgical site. Patient is quite pleasant and cooperative with a physical examination. Had a good night sleep. Cough is improved. Denies any fever, chills, chest pain, nausea, vomiting, urinary symptoms, or any shortness of breath, Reason For Visit: GI BLEED Physical Exam Vital Signs: Temp Pulse Resp BP Pulse Ox 99.7 F 94 18 121/86 H 96 05/18/18 12:35 05/18/18 12:35 05/18/18 12:35 05/18/18 12:35 05/18/18 12:35 Intake & Output 05/17/18 05/18/18 05/19/18 06:59 06:59 06:59 Intake Total 3877 3649 45 Output Total 2825 2335 670 Balance 1052 1314 -625 Weight 59 kg 60.5 kg Results Laboratory Results: 05/18/18 04:38 05/18/18 04:38 05/12/18 05/15/18 05/17/18 21:05 19:00 14:10 WBC 20.4 H RBC 3.09 L Hgb 9.3 L Hct 27.0 L MCV 87 MCH 30.1 MCHC 34.4 RDW 14.1 H Plt Count 168 Seg Neutrophils % Lymphocytes % Monocytes % Eosinophils % Basophils % Absolute Neutrophils Absolute Lymphocytes Absolute Monocytes Absolute Eosinophils Absolute Basophils Sodium Potassium Chloride Carbon Dioxide Anion Gap BUN Creatinine Est GFR ( Amer) Est GFR (Non-Af Amer) Glucose Calcium Magnesium Total Bilirubin AST ALT Alkaline Phosphatase Total Protein Albumin Blood Type A POSITIVE A POSITIVE Antibody Screen NEGATIVE NEGATIVE 05/17/18 05/17/18 05/18/18 14:10 19:00 04:38 WBC 17.2 H RBC 2.77 L Hgb 8.6 L Hct 24.5 L MCV 89 MCH 30.9 MCHC 34.9 RDW 14.2 H Plt Count 209 Seg Neutrophils % Not Reportable Lymphocytes % Not Reportable Monocytes % Not Reportable Eosinophils % Not Reportable Basophils % Not Reportable Absolute Neutrophils Not Reportable Absolute Lymphocytes Not Reportable Absolute Monocytes Not Reportable Absolute Eosinophils Not Reportable Absolute Basophils Not Reportable Sodium 135.3 L 135.7 L Potassium 4.3 D 3.6 Chloride 106 106 Carbon Dioxide 25 25 Anion Gap 4 L 5 BUN 14 13 Creatinine 0.73 0.62 Est GFR ( Amer) > 60 > 60 Est GFR (Non-Af Amer) > 60 > 60 Glucose 110 101 Calcium 7.4 L 7.4 L Magnesium Total Bilirubin AST ALT Alkaline Phosphatase Total Protein Albumin Blood Type Antibody Screen 05/18/18 05/18/18 04:38 04:38 WBC RBC Hgb Hct MCV MCH MCHC RDW Plt Count Seg Neutrophils % Lymphocytes % Monocytes % Eosinophils % Basophils % Absolute Neutrophils Absolute Lymphocytes Absolute Monocytes Absolute Eosinophils Absolute Basophils Sodium 137.6 Cancelled Potassium 3.2 L Cancelled Chloride 109 H Cancelled Carbon Dioxide 23 Cancelled Anion Gap 6 Cancelled BUN 13 Cancelled Creatinine 0.69 Cancelled Est GFR ( Amer) > 60 Cancelled Est GFR (Non-Af Amer) > 60 Cancelled Glucose 89 Cancelled Calcium 7.4 L Cancelled Magnesium 1.9 Cancelled Total Bilirubin 0.5 AST 17 ALT 22 Alkaline Phosphatase 41 Total Protein 3.9 L Albumin 1.9 L Blood Type Antibody Screen 05/15/18 14:30 Troponin I < 0.012 Impressions: Head CT 05/15/18 11:11 IMPRESSION: NORMAL BRAIN CT WITHOUT CONTRAST. EVIDENCE OF ACUTE STROKE: NO. Chest X-Ray 05/18/18 06:00 IMPRESSION: STABLE APPEARANCE OF THE CHEST. SUPPORT DEVICES UNCHANGED. Assessment & Plan - Diagnosis (1) GI bleed Qualifiers: GI bleed type/associated pathology: unspecified gastrointestinal hemorrhage type Qualified Code(s): K92.2 - Gastrointestinal hemorrhage, unspecified Is this a current diagnosis for this admission?: Yes Plan: Patient was admitted on 05/12/2018 for acute GI bleed. GI/surgery was consulted for possible upper and lower GI endoscopy. Unfortunately patient was not able to finish her bowel preparation stating that was making her sick. Upper GI endoscopy was done but colonoscopy was delayed due to the above-mentioned reason. Yesterday morning patient was alert and oriented very cooperative and she was trying to finish her bowel prep but as the day progressed she had multiple hematochezia and she became confused, CT head was negative for any stroke. Patient received multiple PRBCs fresh frozen plasma and platelets however GI bleed did not stop. Unfortunately surgery was not able to take her earlier in the day because of their schedule. I contacted surgery multiple times during the day and talked to the staff and talked to Dr. Sandoval and told him about the urgency of intervention but unfortunately due to their busy schedule they are not able to take the patient to the OR until later that day. I called [facility] to arrange a transfer for urgent colonoscopy however they could not take her immediately because of the schedule. Plan was made to transfer the patient [facility] as soon as possible. While waiting to be then taken to the OR by our surgery team or be transferred to [facility] medical she became more confused and had more hematochezia with one episode of vomiting patient was intubated and taken to ICU. Or surgeries and was able to take her to OR where colonoscopy done and diverticular bleed was found. Diverticular bleed could not be stopped and patient had a bowel resection with a temporary colostomy. Please refer to surgery note. Hemoglobin pain 8.6 from 9.3. No sign of bleeding in the ostomy bag. Surgical wound is clean. CBC at 5 PM. Transfuse if hemoglobin less than 7, actively bleeding, or hemodynamically unstable. Avoid NSAIDs. (2) HTN (hypertension) Is this a current diagnosis for this admission?: Yes Plan: Normotensive, euvolemic. on furosemide and losartan. Will monitor volume status and vitals (3) History of diverticulosis Is this a current diagnosis for this admission?: Yes Plan: Complicated diverticular bleed. Status post bowel resection and colostomy. Xarelto on hold (4) History of breast cancer in female Is this a current diagnosis for this admission?: Yes Plan: Outpatient oncology follow-up (5) History of DVT (deep vein thrombosis) Is this a current diagnosis for this admission?: Yes Plan: Left upper extremity DVT. Hold Xarelto due to acute GI bleed. (6) Chronic lower back pain Is this a current diagnosis for this admission?: Yes Plan: Restart hydrocodone and tizanidine, duloxetine. Physical therapy (7) Lymphedema Is this a current diagnosis for this admission?: No Plan: Left upper extremity due to complication of breast cancer. Restart clindamycin. Patient states that she has been on chronic clindamycin for lymphedema flare (8) DVT prophylaxis Is this a current diagnosis for this admission?: Yes Plan: Continue mechanical DVT prophylaxis. No anticoagulation due to GI bleed.
[2018-05-18] MEDS: LOSARTAN POTASSIUM 50 MG TABLET PO SCH (13:25)
--- NOTE | 2018-05-18 14:51 | PDOC PROGRESS REPORT ---
Subjective Progress Note for:: 05/18/18 Reason For Visit: GI BLEED Patient is now postoperative day 3, in the intensive unit, extubated; no hemodynamic problems. NG tube still in. Receiving sedation, and narcotics [id number] Physical Exam Vital Signs: Temp Pulse Resp BP Pulse Ox 99.7 F 94 19 121/86 H 97 05/18/18 12:35 05/18/18 12:35 05/18/18 14:00 05/18/18 12:35 05/18/18 14:00 Intake & Output 05/17/18 05/18/18 05/19/18 06:59 06:59 06:59 Intake Total 3877 3649 1000 Output Total 2825 2335 670 Balance 1052 1314 330 Weight 59 kg 60.5 kg General appearance: PRESENT: no acute distress, other - Arouses, communicates GI/Abdominal exam: PRESENT: other - Abdomen examined; midline incision healing satisfactorily; ramu in place; ostomy edematous pink Results Laboratory Results: 05/18/18 04:38 05/18/18 04:38 05/12/18 05/15/18 05/17/18 21:05 19:00 14:10 WBC 20.4 H RBC 3.09 L Hgb 9.3 L Hct 27.0 L MCV 87 MCH 30.1 MCHC 34.4 RDW 14.1 H Plt Count 168 Seg Neutrophils % Lymphocytes % Monocytes % Eosinophils % Basophils % Absolute Neutrophils Absolute Lymphocytes Absolute Monocytes Absolute Eosinophils Absolute Basophils Sodium Potassium Chloride Carbon Dioxide Anion Gap BUN Creatinine Est GFR ( Amer) Est GFR (Non-Af Amer) Glucose Calcium Magnesium Total Bilirubin AST ALT Alkaline Phosphatase Total Protein Albumin Blood Type A POSITIVE A POSITIVE Antibody Screen NEGATIVE NEGATIVE 05/17/18 05/17/18 05/18/18 14:10 19:00 04:38 WBC 17.2 H RBC 2.77 L Hgb 8.6 L Hct 24.5 L MCV 89 MCH 30.9 MCHC 34.9 RDW 14.2 H Plt Count 209 Seg Neutrophils % Not Reportable Lymphocytes % Not Reportable Monocytes % Not Reportable Eosinophils % Not Reportable Basophils % Not Reportable Absolute Neutrophils Not Reportable Absolute Lymphocytes Not Reportable Absolute Monocytes Not Reportable Absolute Eosinophils Not Reportable Absolute Basophils Not Reportable Sodium 135.3 L 135.7 L Potassium 4.3 D 3.6 Chloride 106 106 Carbon Dioxide 25 25 Anion Gap 4 L 5 BUN 14 13 Creatinine 0.73 0.62 Est GFR ( Amer) > 60 > 60 Est GFR (Non-Af Amer) > 60 > 60 Glucose 110 101 Calcium 7.4 L 7.4 L Magnesium Total Bilirubin AST ALT Alkaline Phosphatase Total Protein Albumin Blood Type Antibody Screen 05/18/18 05/18/18 04:38 04:38 WBC RBC Hgb Hct MCV MCH MCHC RDW Plt Count Seg Neutrophils % Lymphocytes % Monocytes % Eosinophils % Basophils % Absolute Neutrophils Absolute Lymphocytes Absolute Monocytes Absolute Eosinophils Absolute Basophils Sodium 137.6 Cancelled Potassium 3.2 L Cancelled Chloride 109 H Cancelled Carbon Dioxide 23 Cancelled Anion Gap 6 Cancelled BUN 13 Cancelled Creatinine 0.69 Cancelled Est GFR ( Amer) > 60 Cancelled Est GFR (Non-Af Amer) > 60 Cancelled Glucose 89 Cancelled Calcium 7.4 L Cancelled Magnesium 1.9 Cancelled Total Bilirubin 0.5 AST 17 ALT 22 Alkaline Phosphatase 41 Total Protein 3.9 L Albumin 1.9 L Blood Type Antibody Screen 05/15/18 14:30 Troponin I < 0.012 Impressions: Head CT 05/15/18 11:11 IMPRESSION: NORMAL BRAIN CT WITHOUT CONTRAST. EVIDENCE OF ACUTE STROKE: NO. Chest X-Ray 05/18/18 06:00 IMPRESSION: STABLE APPEARANCE OF THE CHEST. SUPPORT DEVICES UNCHANGED. Assessment & Plan - Diagnosis (1) GI bleed Qualifiers: GI bleed type/associated pathology: unspecified gastrointestinal hemorrhage type Qualified Code(s): K92.2 - Gastrointestinal hemorrhage, unspecified Is this a current diagnosis for this admission?: Yes Plan: Patient is status post exploratory laparotomy, sigmoid colectomy, colostomy for acute GI bleed; hemoglobin down to 8.6; hemodynamically stable; sedated in the postoperative period Recommendations : 1. Clamped, likely discontinue nasogastric tube; may be able to start clear liquids later today. 2. Increase pulmonary toilet; out of bed to chair 3. Consider nonnarcotic analgesics; discussed with nursing staff 4. Agree with discontinuing IV antibiotics, Flagyl, and at this time. (3) History of diverticulosis Is this a current diagnosis for this admission?: Yes
[2018-05-18] MEDS: ACETAMINOPHEN 325 MG TABLET PO PRN ×2 (15:13→19:52)
[2018-05-18 18:01] LABS: HEMOGLOBIN 8.5 g/dL (12.0-15.5); MEAN CORPUSCULAR HEMOGLOBIN 30.3 pg (27.0-33.4); MEAN CORPUSCULAR HGB CONC 33.9 g/dL (32.0-36.0); MEAN CORPUSCULAR VOLUME 89 fl (80-97); PLATELET COUNT 245 10^3/uL (150-450); RED CELL DISTRIBUTION WIDTH 14.7 % (11.5-14.0)
[2018-05-18] MEDS: PIPERACILLIN SODIUM/TAZOBACTAM 4.5 GM in NORMAL SALINE 100 ML IV SCH ×2 (18:23→23:57)
[2018-05-18] MEDS: DULOXETINE HCL 30 MG CAPSULE.DR PO SCH (18:23)
[2018-05-18] MEDS: ATORVASTATIN CALCIUM 20 MG TABLET PO SCH (21:51)
[2018-05-19] MEDS: CYCLOBENZAPRINE HCL 10 MG TABLET PO PRN ×2 (01:35→12:37)
[2018-05-19] MEDS: ACETAMINOPHEN 325 MG TABLET PO PRN ×2 (01:35→12:41)
[2018-05-19 04:51] LABS: HEMATOCRIT 26.2 % (36.0-47.0); HEMOGLOBIN 8.9 g/dL (12.0-15.5); MEAN CORPUSCULAR HEMOGLOBIN 30.6 pg (27.0-33.4); MEAN CORPUSCULAR HGB CONC 33.9 g/dL (32.0-36.0); MEAN CORPUSCULAR VOLUME 90 fl (80-97); PLATELET COUNT 302 10^3/uL (150-450); WHITE BLOOD COUNT 16.9 10^3/uL (4.0-10.5)
[2018-05-19 05:10] LABS: ALANINE AMINOTRANSFERASE 28 U/L (9-52); ALBUMIN 1.9 g/dL (3.5-5.0); ALKALINE PHOSPHATASE 40 U/L (38-126); ANION GAP 8 (5-19); ASPARTATE AMINO TRANSFERASE 16 U/L (14-36); BILIRUBIN,DIRECT 0.3 mg/dL (0.0-0.4); BILIRUBIN,TOTAL 0.6 mg/dL (0.2-1.3); BLOOD UREA NITROGEN 16 mg/dL (7-20); CALCIUM 7.5 mg/dL (8.4-10.2); CARBON DIOXIDE 18 mmol/L (22-30); CHLORIDE 112 mmol/L (98-107); GLUCOSE 64 mg/dL (75-110); POTASSIUM 3.4 mmol/L (3.6-5.0); SODIUM 138.3 mmol/L (137-145); TOTAL PROTEIN 3.9 g/dL (6.3-8.2)
[2018-05-19 05:13] LABS: ABSOLUTE LYMPHOCYTES# (MANUAL) 0.7 10^3/uL (0.5-4.7); ABSOLUTE MONOCYTES # (MANUAL) 0.7 10^3/uL (0.1-1.4); ABSOLUTE NEUTROPHILS# (MANUAL) 15.2 10^3/uL (1.7-8.2); BASOPHILS % (MANUAL) 1 % (0-2); EOSINOPHILS % (MANUAL) 1 % (0-6); LYMPHOCYTES % (MANUAL) 4 % (13-45); MONOCYTES % (MANUAL) 4 % (3-13); SEGMENTED NEUTROPHILS % (MAN) 90 % (42-78); TOTAL CELLS COUNTED 100
[2018-05-19 05:14] LABS: POLYCHROMASIA SLIGHT
[2018-05-19 05:15] LABS: ANISOCYTOSIS SLIGHT; OVALOCYTES SLIGHT; PLATELET COMMENT ADEQUATE; POIKILOCYTOSIS SLIGHT; SCHISTOCYTES SLIGHT
[2018-05-19] MEDS: LEVOTHYROXINE SODIUM 0.1 MG TABLET PO SCH (05:25)
[2018-05-19] MEDS: PIPERACILLIN SODIUM/TAZOBACTAM 4.5 GM in NORMAL SALINE 100 ML IV SCH ×4 (05:26→22:59)
[2018-05-19] MEDS ORDERED: POTASSI CL 20 MEQ/50 ML RIDER 20 MEQ/50 ML RTUPB IV ONE (06:42)
[2018-05-19] MEDS: POTASSIUM CHLORIDE 20 MEQ/50 ML RTU IV SCH ×2 (06:47→09:02)
[2018-05-19] MEDS: FUROSEMIDE INJ/PF 20 MG/2 ML SDV IV SCH ×2 (11:25→22:58)
[2018-05-19] MEDS: PANTOPRAZOLE SODIUM 40 MG VIAL IV SCH (11:25)
[2018-05-19] MEDS: DULOXETINE HCL 30 MG CAPSULE.DR PO SCH (11:26)
[2018-05-19] MEDS: LOSARTAN POTASSIUM 50 MG TABLET PO SCH (11:26)
[2018-05-19] MEDS: NORMAL SALINE 1000 ML 1,000 ML IV PRN (11:28)
[2018-05-19] MEDS ORDERED: NORMAL SALINE 1000 ML 1,000 ML IV PRN (11:54)
[2018-05-19] MEDS: ONDANSETRON HCL INJ/PF 4 MG/2 ML SDV IV PRN (12:31)
--- NOTE | 2018-05-19 17:04 | PDOC PROGRESS REPORT ---
Subjective Progress Note for:: 05/19/18 Subjective:: mild incisional pains. Hungry Reason For Visit: GI BLEED Physical Exam Vital Signs: Temp Pulse Resp BP Pulse Ox 99.3 F 109 H 19 160/92 H 98 05/19/18 08:58 05/19/18 10:00 05/19/18 15:00 05/19/18 11:48 05/19/18 11:48 Intake & Output 05/18/18 05/19/18 05/20/18 06:59 06:59 06:59 Intake Total 3649 2315 1050 Output Total 2335 1845 60 Balance 1314 470 990 Weight 60.5 kg 61.6 kg Exam: Colostomy viable with small amount of air. Has small amount of old dark liquid clots likely from old bleeding from more distal area that was already resected. Results Laboratory Results: 05/19/18 04:33 05/19/18 04:33 05/18/18 05/19/18 05/19/18 17:20 04:33 04:33 WBC 18.0 H 16.9 H RBC 2.80 L 2.90 L Hgb 8.5 L 8.9 L Hct 25.0 L 26.2 L MCV 89 90 MCH 30.3 30.6 MCHC 33.9 33.9 RDW 14.7 H 15.0 H Plt Count 245 302 Seg Neutrophils % Not Reportable Lymphocytes % Not Reportable Monocytes % Not Reportable Eosinophils % Not Reportable Basophils % Not Reportable Absolute Neutrophils Not Reportable Absolute Lymphocytes Not Reportable Absolute Monocytes Not Reportable Absolute Eosinophils Not Reportable Absolute Basophils Not Reportable Sodium 138.3 Potassium 3.4 L Chloride 112 H Carbon Dioxide 18 L Anion Gap 8 BUN 16 Creatinine 0.72 Est GFR ( Amer) > 60 Est GFR (Non-Af Amer) > 60 Glucose 64 L Calcium 7.5 L Magnesium 1.8 Total Bilirubin 0.6 AST 16 ALT 28 Alkaline Phosphatase 40 Total Protein 3.9 L Albumin 1.9 L 05/15/18 14:30 Troponin I < 0.012 Impressions: Head CT 05/15/18 11:11 IMPRESSION: NORMAL BRAIN CT WITHOUT CONTRAST. EVIDENCE OF ACUTE STROKE: NO. Chest X-Ray 05/18/18 06:00 IMPRESSION: STABLE APPEARANCE OF THE CHEST. SUPPORT DEVICES UNCHANGED. Assessment & Plan - Diagnosis (1) GI bleed Qualifiers: GI bleed type/associated pathology: unspecified gastrointestinal hemorrhage type Qualified Code(s): K92.2 - Gastrointestinal hemorrhage, unspecified Is this a current diagnosis for this admission?: Yes - Time Time Spent with patient: 15-24 minutes - Plan Summary Plan Summary: Will start liquids po then increase as tolerated. Continue check H/H . Should stabilize soon. Tjis is POD #4
--- NOTE | 2018-05-19 19:50 | PDOC PROGRESS REPORT ---
Subjective Progress Note for:: 05/19/18 Subjective:: Patient is 77-year-old female who was initially admitted for acute GI bleed. Patient had significant bleed and eventually had to undergo a colectomy with colostomy from a diverticular hemorrhage. She was extubated post surgery. No acute event overnight. Patient denies acute complaint. She does not have any nausea or vomiting. Note of slightly melanotic stools on the ostomy. No bright red bleeding. Denies any chest pain or shortness of breath. Patient's blood pressure and hemoglobin have been stable. She says she is hungry and wants to eat. Reason For Visit: GI BLEED Physical Exam Vital Signs: Temp Pulse Resp BP Pulse Ox 99.3 F 109 H 24 H 142/78 H 98 05/19/18 08:58 05/19/18 10:00 05/19/18 18:00 05/19/18 15:48 05/19/18 11:48 Intake & Output 05/18/18 05/19/18 05/20/18 06:59 06:59 06:59 Intake Total 3649 2315 1350 Output Total 2335 1845 1000 Balance 1314 470 350 Weight 133 lb 6.075 oz 135 lb 12.876 oz General appearance: PRESENT: no acute distress, well-developed, well-nourished Head exam: PRESENT: atraumatic, normocephalic Eye exam: PRESENT: conjunctiva pink, EOMI, PERRLA. ABSENT: scleral icterus Ear exam: PRESENT: normal external ear exam Respiratory exam: PRESENT: clear to auscultation tiffany. ABSENT: rales, rhonchi, wheezes Cardiovascular exam: PRESENT: RRR. ABSENT: diastolic murmur, rubs, systolic murmur Pulses: PRESENT: normal dorsalis pedis pul GI/Abdominal exam: PRESENT: normal bowel sounds, soft, other - Minimal slightly melanotic stools noted on ostomy bag. ABSENT: distended, guarding, mass, organolmegaly, rebound, tenderness Rectal exam: PRESENT: deferred Neurological exam: PRESENT: alert, awake, oriented to person, oriented to place , oriented to time, oriented to situation, CN II-XII grossly intact. ABSENT: motor sensory deficit Results Laboratory Results: 05/19/18 04:33 05/19/18 04:33 05/19/18 05/19/18 04:33 04:33 WBC 16.9 H RBC 2.90 L Hgb 8.9 L Hct 26.2 L MCV 90 MCH 30.6 MCHC 33.9 RDW 15.0 H Plt Count 302 Seg Neutrophils % Not Reportable Lymphocytes % Not Reportable Monocytes % Not Reportable Eosinophils % Not Reportable Basophils % Not Reportable Absolute Neutrophils Not Reportable Absolute Lymphocytes Not Reportable Absolute Monocytes Not Reportable Absolute Eosinophils Not Reportable Absolute Basophils Not Reportable Sodium 138.3 Potassium 3.4 L Chloride 112 H Carbon Dioxide 18 L Anion Gap 8 BUN 16 Creatinine 0.72 Est GFR ( Amer) > 60 Est GFR (Non-Af Amer) > 60 Glucose 64 L Calcium 7.5 L Magnesium 1.8 Total Bilirubin 0.6 AST 16 ALT 28 Alkaline Phosphatase 40 Total Protein 3.9 L Albumin 1.9 L 05/15/18 14:30 Troponin I < 0.012 Impressions: Head CT 05/15/18 11:11 IMPRESSION: NORMAL BRAIN CT WITHOUT CONTRAST. EVIDENCE OF ACUTE STROKE: NO. Chest X-Ray 05/18/18 06:00 IMPRESSION: STABLE APPEARANCE OF THE CHEST. SUPPORT DEVICES UNCHANGED. Assessment & Plan - Diagnosis (1) GI bleed Qualifiers: GI bleed type/associated pathology: unspecified gastrointestinal hemorrhage type Qualified Code(s): K92.2 - Gastrointestinal hemorrhage, unspecified Is this a current diagnosis for this admission?: Yes Plan: GI bleed secondary to diverticular hemorrhage. Status post colectomy with colostomy. Surgery following. Patient's hemoglobin and blood pressures have been stable. We will advance diet. Will continue to monitor H&H. Will be downgraded to telemetry floor. (2) HTN (hypertension) Is this a current diagnosis for this admission?: Yes Plan: Blood pressure close to goal. Continue losartan 100 mg daily. - Time Time Spent with patient: 25-34 minutes
[2018-05-19] MEDS: KETOROLAC TROMETHAMINE INJ/PF 30 MG/1 ML SDV IV PRN (20:00)
[2018-05-19] MEDS: ATORVASTATIN CALCIUM 20 MG TABLET PO SCH (22:58)
[2018-05-20] MEDS: ONDANSETRON HCL INJ/PF 4 MG/2 ML SDV IV PRN ×2 (01:45→10:08)
[2018-05-20] MEDS: ACETAMINOPHEN 325 MG TABLET PO PRN (01:45)
[2018-05-20] MEDS: CYCLOBENZAPRINE HCL 10 MG TABLET PO PRN (01:45)
[2018-05-20] MEDS: PIPERACILLIN SODIUM/TAZOBACTAM 4.5 GM in NORMAL SALINE 100 ML IV SCH ×2 (05:55→13:42)
[2018-05-20] MEDS: LEVOTHYROXINE SODIUM 0.1 MG TABLET PO SCH (05:55)
[2018-05-20] MEDS: KETOROLAC TROMETHAMINE INJ/PF 30 MG/1 ML SDV IV PRN (05:56)
[2018-05-20 06:31] LABS: ABSOLUTE BASOPHILS # (AUTO) 0.1 10^3/uL (0.0-0.2); ABSOLUTE EOSINOPHILS # (AUTO) 0.2 10^3/uL (0.0-0.6); ABSOLUTE LYMPHOCYTES (AUTO) 0.8 10^3/uL (0.5-4.7); ABSOLUTE MONOCYTES (AUTO) 1.5 10^3/uL (0.1-1.4); BASOPHILS % (AUTO) 0.6 % (0-2); EOSINOPHILS % (AUTO) 1.1 % (0-6); HEMATOCRIT 27.6 % (36.0-47.0); HEMOGLOBIN 9.5 g/dL (12.0-15.5); LYMPHOCYTES % (AUTO) 5.2 % (13-45); MEAN CORPUSCULAR HGB CONC 34.4 g/dL (32.0-36.0); MEAN CORPUSCULAR VOLUME 90 fl (80-97); MONOCYTES % (AUTO) 10.5 % (3-13); PLATELET COUNT 423 10^3/uL (150-450); RED BLOOD COUNT 3.06 10^6/uL (3.72-5.28); RED CELL DISTRIBUTION WIDTH 14.7 % (11.5-14.0); SEGMENTED NEUTROPHILS % (AUTO) 82.6 % (42-78); TOTAL CELLS COUNTED % (AUTO) 100 %; WHITE BLOOD COUNT 14.5 10^3/uL (4.0-10.5)
[2018-05-20 06:51] LABS: ANION GAP 6 (5-19); BLOOD UREA NITROGEN 16 mg/dL (7-20); CALCIUM 7.6 mg/dL (8.4-10.2); CARBON DIOXIDE 22 mmol/L (22-30); CHLORIDE 108 mmol/L (98-107); GLUCOSE 94 mg/dL (75-110); POTASSIUM 3.2 mmol/L (3.6-5.0); SODIUM 135.9 mmol/L (137-145)
[2018-05-20] MEDS: LOSARTAN POTASSIUM 50 MG TABLET PO SCH (09:54)
[2018-05-20] MEDS: DULOXETINE HCL 30 MG CAPSULE.DR PO SCH (09:54)
[2018-05-20] MEDS: FUROSEMIDE INJ/PF 20 MG/2 ML SDV IV SCH (09:55)
[2018-05-20] MEDS: PANTOPRAZOLE SODIUM 40 MG VIAL IV SCH (09:57)
[2018-05-20] MEDS ORDERED: HYDROCODONE/ACETAMINOPHEN 5-325 MG TABLET PO PRN (10:21)
[2018-05-20] MEDS ORDERED: HYDROCODONE/ACETAMINOPHEN 10-325 MG TABLET PO PRN (10:25)
--- NOTE | 2018-05-20 10:29 | PDOC PROGRESS REPORT ---
Subjective Reason For Visit: GI BLEED Physical Exam Vital Signs: Temp Pulse Resp BP Pulse Ox 98.3 F 96 18 158/74 H 98 05/20/18 08:00 05/20/18 08:00 05/20/18 08:00 05/20/18 08:00 05/20/18 08:00 Intake & Output 05/19/18 05/20/18 05/21/18 06:59 06:59 06:59 Intake Total 2315 1948 Output Total 5370 1900 Balance 470 48 Weight 61.6 kg 62.1 kg Results Laboratory Results: 05/20/18 06:20 05/20/18 06:20 05/20/18 05/20/18 06:20 06:20 WBC 14.5 H RBC 3.06 L Hgb 9.5 L Hct 27.6 L MCV 90 MCH 31.0 MCHC 34.4 RDW 14.7 H Plt Count 423 Seg Neutrophils % 82.6 H Lymphocytes % 5.2 L Monocytes % 10.5 Eosinophils % 1.1 Basophils % 0.6 Absolute Neutrophils 12.0 H Absolute Lymphocytes 0.8 Absolute Monocytes 1.5 H Absolute Eosinophils 0.2 Absolute Basophils 0.1 Sodium 135.9 L Potassium 3.2 L Chloride 108 H Carbon Dioxide 22 Anion Gap 6 BUN 16 Creatinine 0.77 Est GFR ( Amer) > 60 Est GFR (Non-Af Amer) > 60 Glucose 94 Calcium 7.6 L Magnesium 1.6 05/15/18 14:30 Troponin I < 0.012 Impressions: Head CT 05/15/18 11:11 IMPRESSION: NORMAL BRAIN CT WITHOUT CONTRAST. EVIDENCE OF ACUTE STROKE: NO. Chest X-Ray 05/18/18 06:00 IMPRESSION: STABLE APPEARANCE OF THE CHEST. SUPPORT DEVICES UNCHANGED. Assessment & Plan - Diagnosis (1) Diverticular hemorrhage Is this a current diagnosis for this admission?: Yes - Plan Summary Plan Summary: This is a 77-year-old female with lower gastrointestinal bleeding. She is status post colonoscopy, with subsequent colon resection and colostomy placement. The patient is doing well. She denies nausea or vomiting. Her colostomy is pink and productive. Her hemoglobin is within the acceptable range today. Advance diet. Adjust pain medications. Will follow.
--- NOTE | 2018-05-20 11:06 | PDOC PROGRESS REPORT ---
Subjective Progress Note for:: 05/20/18 Subjective:: Patient is 77-year-old female who was initially admitted for acute GI bleed. Patient had significant bleed and eventually had to undergo a colectomy with colostomy from a diverticular hemorrhage. She was extubated post surgery. No acute event overnight. Patient denies acute complaint. She does not have any nausea or vomiting. Ostomy appears well. Stools from ostomy are not melanotic. Denies any chest pain or shortness of breath. Patient's blood pressure and hemoglobin have been stable. Tolerated liquid diet yesterday. Reason For Visit: GI BLEED Physical Exam Vital Signs: Temp Pulse Resp BP Pulse Ox 98.3 F 96 18 158/74 H 98 05/20/18 08:00 05/20/18 08:00 05/20/18 08:00 05/20/18 08:00 05/20/18 08:00 Intake & Output 05/19/18 05/20/18 05/21/18 06:59 06:59 06:59 Intake Total 2315 1948 Output Total 1845 1900 400 Balance 470 48 -400 Weight 135 lb 12.876 oz 136 lb 14.513 oz General appearance: PRESENT: no acute distress, well-developed, well-nourished Head exam: PRESENT: atraumatic, normocephalic Eye exam: PRESENT: conjunctiva pink, EOMI, PERRLA. ABSENT: scleral icterus Ear exam: PRESENT: normal external ear exam Neck exam: ABSENT: carotid bruit, JVD, lymphadenopathy, thyromegaly Respiratory exam: PRESENT: clear to auscultation tiffany. ABSENT: rales, rhonchi, wheezes Cardiovascular exam: PRESENT: RRR. ABSENT: diastolic murmur, rubs, systolic murmur GI/Abdominal exam: PRESENT: normal bowel sounds, soft, other - well healing surgical wounds, ostomy appears well. ABSENT: distended, guarding, mass, organolmegaly, rebound, tenderness Rectal exam: PRESENT: deferred Neurological exam: PRESENT: alert, awake, oriented to person, oriented to place , oriented to time, oriented to situation, CN II-XII grossly intact. ABSENT: motor sensory deficit Results Laboratory Results: 05/20/18 06:20 05/20/18 06:20 05/20/18 05/20/18 06:20 06:20 WBC 14.5 H RBC 3.06 L Hgb 9.5 L Hct 27.6 L MCV 90 MCH 31.0 MCHC 34.4 RDW 14.7 H Plt Count 423 Seg Neutrophils % 82.6 H Lymphocytes % 5.2 L Monocytes % 10.5 Eosinophils % 1.1 Basophils % 0.6 Absolute Neutrophils 12.0 H Absolute Lymphocytes 0.8 Absolute Monocytes 1.5 H Absolute Eosinophils 0.2 Absolute Basophils 0.1 Sodium 135.9 L Potassium 3.2 L Chloride 108 H Carbon Dioxide 22 Anion Gap 6 BUN 16 Creatinine 0.77 Est GFR ( Amer) > 60 Est GFR (Non-Af Amer) > 60 Glucose 94 Calcium 7.6 L Magnesium 1.6 05/15/18 14:30 Troponin I < 0.012 Impressions: Head CT 05/15/18 11:11 IMPRESSION: NORMAL BRAIN CT WITHOUT CONTRAST. EVIDENCE OF ACUTE STROKE: NO. Chest X-Ray 05/18/18 06:00 IMPRESSION: STABLE APPEARANCE OF THE CHEST. SUPPORT DEVICES UNCHANGED. Assessment & Plan - Diagnosis (1) GI bleed Qualifiers: GI bleed type/associated pathology: unspecified gastrointestinal hemorrhage type Qualified Code(s): K92.2 - Gastrointestinal hemorrhage, unspecified Is this a current diagnosis for this admission?: Yes Plan: Resolved. GI bleed was secondary to diverticular hemorrhage. Status post colectomy with colostomy. Surgery following. Patient's hemoglobin and blood pressures have been stable. Advanced to regular diet by surgery today.. (2) HTN (hypertension) Is this a current diagnosis for this admission?: Yes Plan: Continue losartan 100 mg daily. Reduce lasix to 20 mg daily. (3) History of DVT (deep vein thrombosis) Is this a current diagnosis for this admission?: Yes Plan: Patient has history of left arm DVT after a left arm fracture in November 2017. Xarelto still on hold due to recent GI bleed. (4) Chronic lower back pain Is this a current diagnosis for this admission?: Yes Plan: Restart [place] at a lower dose. (5) History of breast cancer in female Is this a current diagnosis for this admission?: Yes Plan: Patient had left breast cancer in 2001 and had prior chemo-radiation and lumpectomy. She developed left upper extremity lymphedema post lumpectomy. - Time Time Spent with patient: 25-34 minutes
[2018-05-20 11:47] VITALS: BP 118/69
[2018-05-20] MEDS ORDERED: POTASSIUM CHLORIDE 10 MEQ CAPSULE.ER PO ONE (12:27)
--- NOTE | 2018-05-20 13:41 | PDOC TRANSFER SUMMARY ---
General Admission Date/PCP: 05/12/18 18:21 MARGAUX NAVA MD Resuscitation Status: Full Code - Transfer Diagnosis (1) GI bleed Is this a current diagnosis for this admission?: Yes (2) HTN (hypertension) Is this a current diagnosis for this admission?: Yes (3) History of DVT (deep vein thrombosis) Is this a current diagnosis for this admission?: Yes (4) Chronic lower back pain Is this a current diagnosis for this admission?: Yes (5) History of breast cancer in female Is this a current diagnosis for this admission?: Yes - Transfer Medications Home Medications: Clindamycin HCl [Cleocin 300 mg Capsule] 300 mg PO DAILY 05/12/18 Cyclobenzaprine HCl 10 mg PO Q8HP PRN 05/12/18 Duloxetine HCl [Cymbalta] 90 mg PO DAILY 05/12/18 Levothyroxine Sodium [Synthroid] 50 mcg PO DAILY 05/12/18 Pravastatin Sodium [Pravachol] 20 mg PO DAILY 05/12/18 Ranitidine HCl 150 mg PO Q12HP PRN 05/12/18 Transfer Medications: Current Medications Hydrocodone Bitart/Acetaminophen ([place] 10-325 Mg Tablet) 1 tab PO Q4HP PRN PRN Reason: FOR PAIN Stop: 05/27/18 10:24 Last Admin: 05/20/18 11:58 Dose: 1 tab Alprazolam (Xanax 0.25 Mg Tablet) 0.125 mg PO ONCE PRN PRN Reason: SLEEP OR INSOMNIA Stop: 05/27/18 20:59 Atorvastatin Calcium (Lipitor 20 Mg Tablet) 20 mg PO QHS BILL Stop: 06/11/18 21:59 Last Admin: 05/19/18 22:58 Dose: 20 mg Cyclobenzaprine HCl (Flexeril 10 Mg Tablet) 10 mg PO Q8HP PRN PRN Reason: FOR MUSCLE SPASM Stop: 06/16/18 11:45 Last Admin: 05/20/18 01:45 Dose: 10 mg Dextrose (Dextrose Inj 50% Syringe (25 Gm/50 Ml)) 12.5 gm IV PRN PRN; Protocol PRN Reason: FOR BG 50-69 IN ALERT PATIENT Stop: 06/11/18 18:57 Dextrose (Dextrose Inj 50% Syringe (25 Gm/50 Ml)) 25 gm IV PRN PRN; Protocol PRN Reason: See Label Comments Stop: 06/11/18 18:57 Duloxetine HCl (Cymbalta 30 Mg Capsule.Dr) 60 mg PO DAILY BILL Stop: 06/17/18 18:59 Last Admin: 05/20/18 09:54 Dose: 60 mg Furosemide (Lasix 20 Mg Tablet) 20 mg PO DAILY BILL Stop: 06/20/18 09:59 Glucagon (Glucagen Inj 1 Mg Vial) 1 mg SUBCUT PRN PRN; Protocol PRN Reason: Evaluate for BG < 70 Stop: 06/11/18 18:57 Glucose (Glutose 40% Gel 15 Gm Tube) 15 gm PO PRN PRN; Protocol PRN Reason: For BG 50-69 in Alert Patient Stop: 06/11/18 18:57 Glucose (Glutose 40% Gel 15 Gm Tube) 30 gm PO PRN PRN; Protocol PRN Reason: FOR BG < 50 IN ALERT PATIENT Stop: 06/11/18 18:57 Guaifenesin (Robitussin Syrup 200 Mg/10 Ml Ud Cup) 200 mg PO Q4HP PRN PRN Reason: COUGH Stop: 06/16/18 08:02 Last Admin: 05/17/18 12:01 Dose: 200 mg Piperacillin Sod/Tazobactam (Sod 4.5 gm/ Sodium Chloride) 100 mls @ 200 mls/hr IV Q6 BILL Stop: 05/25/18 17:59 Last Infusion: 05/20/18 06:32 Dose: Infused Sodium Chloride (Nacl 0.9% 1000 Ml Iv Soln) 1,000 mls @ 80 mls/hr IV CONTINUOUS PRN PRN Reason: THIS MED IS NOT "PRN" Stop: 06/18/18 11:53 Last Admin: 05/20/18 06:44 Dose: 80 mls/hr Lansoprazole (Prevacid 30 Mg Odt Tablet) 30 mg PO Q12@0600,1800 [facility] Stop: 06/19/18 17:59 Levothyroxine Sodium (Synthroid 0.1 Mg Tablet) 0.1 mg PO Q6AM BILL Stop: 06/12/18 05:59 Last Admin: 05/20/18 05:55 Dose: 0.1 mg Losartan Potassium (Cozaar 50 Mg Tablet) 100 mg PO DAILY BILL Stop: 06/17/18 09:59 Last Admin: 05/20/18 09:54 Dose: 100 mg Ondansetron HCl (Zofran Inj/Pf 4 Mg/2 Ml Sdv) 4 mg IV Q6HP PRN PRN Reason: FOR NAUSEA/VOMITING Stop: 06/14/18 09:57 Last Admin: 05/20/18 10:08 Dose: 4 mg Sodium Chloride (Saline Flush 2.5 Ml Monoject Prefil Syrin) 2.5 ml IV Q8 BILL Stop: 06/11/18 21:59 Last Admin: 05/20/18 05:55 Dose: Not Given - Allergies Allergies/Adverse Reactions: aspirin [Aspirin] Allergy (Verified 05/12/18 15:15) salazar stomach codeine [Codeine] Allergy (Verified 05/12/18 15:15) itching erythromycin base [Erythromycin Base] Allergy (Verified 05/12/18 15:15) abd. pain Penicillins Allergy (Verified 05/12/18 15:15) Hospital Course Hospital Course: Ms. Preciado is a 77-year-old female with a past medical history of left breast cancer with prior chemotherapy and radiation, chronic lymphedema, history of left arm DVT was taking Xarelto prior to admission, hypertension and chronic low back pain who initially presented with hematochezia. GI and surgery were consulted. Patient has hemoglobin we will closely monitored went down. Patient was initially managed conservatively. Patient underwent EGD which showed gastritis and colonoscopy was showed significant diverticulosis with active bleeding. Jessica ink injection was attmepted by GI but this was unsuccessful. Patient received multiple blood transfusion and received a total of 11 units pRBCs and 1 FFP and 1 u of platelet as well. Unfortunately, patient continued to have significant hematochezia and continued to have worsening anemia. She developed confusion along with this. She was transferred to the ICU. Due to persistent and significant bleeding, patient underwent colectomy with colostomy on 05/16/10. Patient was also extubated post surgery. She did improve clinically and did not have recurrence of bleeding after surgery. Her hemoglobin has remained stable. Her stools also became amelanotic and with no recurrence of bright red bloody stools. Patient was evaluated by physical therapy and patient was noted to be weak and was unsteady on her legs. P Atient's diet was advanced and surgery cleared patient for transfer to LTAC. As mentioned patient was taking Xarelto for DVT of the left arm. Discussed the risk and benefits again of anticoagulation and patient strongly insisted that she will want to try taking any form of anticoagulation. Physical Exam Vital Signs: Temp Pulse Resp BP Pulse Ox 97.8 F 97 18 118/69 96 05/20/18 11:00 05/20/18 11:00 05/20/18 11:00 05/20/18 11:00 05/20/18 11:00 Intake & Output 05/19/18 05/20/18 05/21/18 06:59 06:59 06:59 Intake Total 2315 1948 Output Total 1845 1900 400 Balance 470 48 -400 Weight 135 lb 12.876 oz 136 lb 14.513 oz General appearance: PRESENT: no acute distress, well-developed, well-nourished Head exam: PRESENT: atraumatic, normocephalic Eye exam: PRESENT: conjunctiva pink, EOMI, PERRLA. ABSENT: scleral icterus Ear exam: PRESENT: normal external ear exam Neck exam: ABSENT: carotid bruit, JVD, lymphadenopathy, thyromegaly Respiratory exam: PRESENT: clear to auscultation tiffany. ABSENT: rales, rhonchi, wheezes Cardiovascular exam: PRESENT: RRR. ABSENT: diastolic murmur, rubs, systolic murmur GI/Abdominal exam: PRESENT: normal bowel sounds, soft, other - Ostomy appears unremarkable, amelanotic stools noted on ostomy bag.. ABSENT: distended, guarding, mass, organolmegaly, rebound, tenderness Rectal exam: PRESENT: deferred Neurological exam: PRESENT: alert, awake, oriented to person, oriented to place , oriented to time, oriented to situation, CN II-XII grossly intact. ABSENT: motor sensory deficit Results Laboratory Results: 05/20/18 06:20 05/20/18 06:20 05/20/18 05/20/18 06:20 06:20 WBC 14.5 H RBC 3.06 L Hgb 9.5 L Hct 27.6 L MCV 90 MCH 31.0 MCHC 34.4 RDW 14.7 H Plt Count 423 Seg Neutrophils % 82.6 H Lymphocytes % 5.2 L Monocytes % 10.5 Eosinophils % 1.1 Basophils % 0.6 Absolute Neutrophils 12.0 H Absolute Lymphocytes 0.8 Absolute Monocytes 1.5 H Absolute Eosinophils 0.2 Absolute Basophils 0.1 Sodium 135.9 L Potassium 3.2 L Chloride 108 H Carbon Dioxide 22 Anion Gap 6 BUN 16 Creatinine 0.77 Est GFR ( Amer) > 60 Est GFR (Non-Af Amer) > 60 Glucose 94 Calcium 7.6 L Magnesium 1.6 05/15/18 14:30 Troponin I < 0.012 Impressions: Head CT 05/15/18 11:11 IMPRESSION: NORMAL BRAIN CT WITHOUT CONTRAST. EVIDENCE OF ACUTE STROKE: NO. Chest X-Ray 05/18/18 06:00 IMPRESSION: STABLE APPEARANCE OF THE CHEST. SUPPORT DEVICES UNCHANGED.
[2018-05-20] MEDS ORDERED: LANSOPRAZOLE 30 MG TAB.RAP.DR PO SCH (18:00)
[2018-05-20] MEDS ORDERED: ALPRAZOLAM 0.25 MG TABLET PO PRN (21:00)
[2018-05-20] MEDS ORDERED: (PENDING PHARMACY ID) (Rabeprazole Sodium [Aciphex] 20 MG) PO SCH (22:00)
[2018-05-21] MEDS ORDERED: FUROSEMIDE 20 MG TABLET PO SCH (10:00)
== END 2018-05-20 14:30 | DRG 331 ==
LOC: ER 14:49 → EH 18:21 → 3N 05-13 00:32 → ICU 05-15 15:59 → 4N 05-19 19:15
PROVIDERS: ADMIT Internal Medicine; ATTEND Internal Medicine
PROC: 30233N1 Transfusion of Nonautologous Red Blood Cells into Peripheral Vein, Percutaneous Approach (ICD-10-PCS; 2018-05-13)
PROC: 0DB68ZX Excision of Stomach, Via Natural or Artificial Opening Endoscopic, Diagnostic (ICD-10-PCS; 2018-05-14)
PROC: 0DJD8ZZ Inspection of Lower Intestinal Tract, Via Natural or Artificial Opening Endoscopic (ICD-10-PCS; 2018-05-15)
PROC: 02HV33Z Insertion of Infusion Device into Superior Vena Cava, Percutaneous Approach (ICD-10-PCS; 2018-05-15)
PROC: B548ZZA Ultrasonography of Superior Vena Cava, Guidance (ICD-10-PCS; 2018-05-15)
PROC: 30233N1 Transfusion of Nonautologous Red Blood Cells into Peripheral Vein, Percutaneous Approach (ICD-10-PCS; 2018-05-15)
PROC: 30233K1 Transfusion of Nonautologous Frozen Plasma into Peripheral Vein, Percutaneous Approach (ICD-10-PCS; 2018-05-15)
PROC: 0DBM0ZZ Excision of Descending Colon, Open Approach (ICD-10-PCS; principal; 2018-05-16)
PROC: 0DBN0ZZ Excision of Sigmoid Colon, Open Approach (ICD-10-PCS; 2018-05-16)
PROC: 0D1M0Z4 Bypass Descending Colon to Cutaneous, Open Approach (ICD-10-PCS; 2018-05-16)
PROC: 30233N1 Transfusion of Nonautologous Red Blood Cells into Peripheral Vein, Percutaneous Approach (ICD-10-PCS; 2018-05-16)
PROC: 30233K1 Transfusion of Nonautologous Frozen Plasma into Peripheral Vein, Percutaneous Approach (ICD-10-PCS; 2018-05-16)
PROC: 30233N1 Transfusion of Nonautologous Red Blood Cells into Peripheral Vein, Percutaneous Approach (ICD-10-PCS; 2018-05-17)
DX: K57.31 Diverticulosis of large intestine without perforation or abscess with bleeding (principal); K29.70 Gastritis, unspecified, without bleeding; D64.9 Anemia, unspecified; K21.9 Gastro-esophageal reflux disease without esophagitis; M19.90 Unspecified osteoarthritis, unspecified site; F32.9 Major depressive disorder, single episode, unspecified; F41.9 Anxiety disorder, unspecified; I10 Essential (primary) hypertension; K59.00 Constipation, unspecified; Z86.718 Personal history of other venous thrombosis and embolism; Z85.3 Personal history of malignant neoplasm of breast; M54.5 Low back pain; G89.29 Other chronic pain; I89.0 Lymphedema, not elsewhere classified; Z88.6 Allergy status to analgesic agent; Z88.1 Allergy status to other antibiotic agents; Z88.0 Allergy status to penicillin; Z90.10 Acquired absence of unspecified breast and nipple; Z79.899 Other long term (current) drug therapy
CPT/HCPCS: 00731; 00790; 00811; 36415; 36430; 43239; 45381; 70450; 71045; 80048; 80053; 81001; 82040; 82140; 82272; 82310; 82803; 82962; 83605; 83735; 84478; 84484; 85025; 85027; 85610; 85652; 85730; 86850; 86900; 86901; 86920; 87086; 87088; 87186; 88305; 88307; 88342; 93005; 93010; 94002; 99285; C1751; G8978-GP; G8979-GP; J0330; J0610; J0696; J1170; J1885; J1940; J2001; J2250; J2270; J2405; J2543; J2597; J2704; J2765; J3010; J3475; J3480; J3490; J7030; P9016; P9017; P9035; S0164

== ENCOUNTER → 2018-06-22 | Outpatient (CLI) | payer MEDICARE ==
--- NOTE | 2018-06-22 20:31 | RADIOLOGY REPORT (SQ) ---
EXAM DESCRIPTION: VENOUS UNILATERAL UPPER COMPLETED DATE/TIME: 06/22/2018 8:19 pm REASON FOR STUDY: ACUTE EMBOLI I82.A12 ACUTE EMBOLISM AND THROMBOSIS OF LEFT AXILLARY VEIN COMPARISON: None. TECHNIQUE: Dynamic and static hearn scale and color images acquired of the left arm venous system. Se lected spectral images acquired with additional compression and augmentation maneuvers. The contralat eral subclavian vein and internal jugular vein were also imaged. Images stored on PACS. LIMITATIONS: None. FINDINGS: INTERNAL JUGULAR VEIN: Normal phasicity, compression, augmentation. No visualized echogeni c material on hearn scale. No defects on color images. Comparison opposite side normal. SUBCLAVIAN VEIN: Normal compression, augmentation. No visualized echogenic material on hearn scale. No defects on color images. AXILLARY VEIN: Normal compression, augmentation. No visualized echogenic material on hearn scale. No d efects on color images. BRACHIAL VEIN: Normal compression, augmentation. No visualized echogenic material on hearn scale. No d efects on color images. BASILIC VEIN: Normal compression, augmentation. No visualized echogenic material on hearn scale. No de fects on color images. CEPHALIC VEIN: Normal compression, augmentation. No visualized echogenic material on hearn scale. No d efects on color images. OTHER: No other significant finding. CONTRALATERAL SUBCLAVIAN VEIN AND INTERNAL JUGULAR VEIN: Normal phasicity, compression and augmentation. No visualized echogenic material on hearn scale. No de fects on color images. IMPRESSION: NO EVIDENCE DVT OR SVT LEFT ARM. TECHNICAL DOCUMENTATION: JOB ID: [id number] [employer]- All Rights Reserved Reading location - IP/workstation name: [email or web address]
== END ==
LOC: SP 20:18
PROVIDERS: ATTEND Family Medicine
DX: I82.A12 Acute embolism and thrombosis of left axillary vein (principal)
CPT/HCPCS: 93971

== ENCOUNTER → 2018-07-06 | Outpatient (CLI) | payer MEDICARE ==
--- NOTE | 2018-07-06 16:26 | RADIOLOGY REPORT (SQ) ---
EXAM DESCRIPTION: ACUTE ABDOMEN SERIES COMPLETED DATE/TIME: 07/06/2018 4:15 pm REASON FOR STUDY: COLOSTOMY STATUS,CONSTIPATION, UNSPECIFIED Z93.3 COLOSTOMY STATUS K59.00 CONSTIP ATION, UNSPECIFIED COMPARISON: None. NUMBER OF VIEWS: Three views. TECHNIQUE: Frontal chest, supine abdomen and upright/decubitus abdomen radiographic images acquired. LIMITATIONS: None. FINDINGS: CHEST: Lungs clear of infiltrates. Chronic appearing changes are again identified. Multi ple surgical clips are again identified in the left axillary region. FREE AIR: None. No abnormal gas collections. BOWEL GAS PATTERN: Nonobstructive pattern. No dilated loops or air fluid levels. CALCIFICATIONS: No suspicious calcifications. HARDWARE: Large amount of fecal material is identified in the distribution of the colon especially in the rectosigmoid. SOFT TISSUES: No gross mass or suggestion of organomegaly. BONES: Thoracolumbar scoliosis is identified with associated degenerative changes. OTHER: Patient is status post left mastectomy. IMPRESSION: Large amount of fecal material throughout the colon as noted above. Other findings as n oted above. TECHNICAL DOCUMENTATION: JOB ID: [id number] [employer]- All Rights Reserved Reading location - IP/workstation name: [email or web address]
== END ==
LOC: RAD 15:58
PROVIDERS: ATTEND Physician Assistant Surgical
DX: K59.00 Constipation, unspecified (principal); Z93.3 Colostomy status
CPT/HCPCS: 74022

== ENCOUNTER 2019-04-14 22:04 | Emergency (ER) | payer MEDICARE ==
--- NOTE | 2019-04-14 22:58 | RADIOLOGY REPORT (SQ) ---
EXAM DESCRIPTION: XR CHEST 2 VIEWS COMPLETED DATE/TME: 04/14/2019 00:00 CLINICAL HISTORY: 78 years, Female, fall/bruising COMPARISON: 07/06/2018 chest NUMBER OF VIEWS: 2 TECHNIQUE: 2 views of the chest LIMITATIONS: None. FINDINGS: Heart size is normal. Mild atheromatous change thoracic aorta. Surgical clips left axilla. No pneumothorax. Osteopenia. Minor scarring in each lung base. IMPRESSION: No acute cardiopulmonary process copyright 2010 [employer] [facility]- All Rights Reserved
--- NOTE | 2019-04-15 00:02 | ER Document Report ---
HPI - HPI Patient complains to provider of: mechanical fall Time Seen by Provider: 04/14/19 23:52 Pain Level: 3 Context: Very pleasant 78-year-old lady with history of bowel resection with a colostomy bag, DVT not on anticoagulation, hypertension, and a pre-existing foot drop causing multiple falls presents to the emergency department for anterior rib pain after a mechanical fall this past Friday. States she was standing in front of a large probably oak coffee table when her left foot got caught and "I knew I was going to fall" and subsequently fell into the coffee table and landed on her sternum. Patient states that the pain was so significant that she "must of passed out" but she did not strike her head. When I clarified with her she said that it was just due to significant pain. She then sat on the couch and continued with her evening. Since then she has tried Aspercreme and hydrocodone tablets with some relief. She does have some mild shortness of breath and has pain every time she takes a deep breath. She states there is some bruising just underneath her left breast and across her anterior right chest. Patient has no other complaints. - REPRODUCTIVE Reproductive: DENIES: : Past Medical History - Social History Smoking Status: Unknown if Ever Smoked Family History: Reviewed & Not Pertinent - Past Medical History Cardiac Medical History: Reports: Hx Hypertension Pulmonary Medical History: Neurological Medical History: Renal/ Medical History: Denies: Hx Peritoneal Dialysis Malignancy Medical History: Reports: Hx Breast Cancer - Last chemo and radiation done in 2011 GI Medical History: Reports: Hx Gastroesophageal Reflux Disease Musculoskeletal Medical History: Reports Hx Arthritis Psychiatric Medical History: Reports: Hx Depression - +anxiety Infectious Medical History: Past Surgical History: Reports: Hx Breast Surgery - cancer related, lympn node removal, Hx Mastectomy, Other - Right and Left Lumpectomy. 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 Vertical Provider Document - CONSTITUTIONAL Notes: PHYSICAL EXAMINATION: Reviewed vital signs and charting by RN GENERAL: Alert, interacts well. No acute distress. HEAD: Normocephalic, atraumatic. EYES: Pupils equal and round. Extraocular movements intact. ENT: Oral mucosa moist, tongue midline. NECK: Full range of motion. Trachea midline. LUNGS: Clear to auscultation bilaterally, no wheezes, rales, or rhonchi. No respiratory distress. CHEST: Bruising just inferior to the left breast that appears to be in a late stage as it is yellow and green in color and also a bruise on her anterior right chest at the same stage of healing, she has mild tenderness to palpation over the sternum but there is no obvious crepitus, depression, or other abnormality HEART: Regular rate and rhythm. No murmur ABDOMEN: soft, non-tender. No distention. Bowel sounds present EXTREMITIES: Moves all 4 extremities spontaneously. No edema, No cyanosis. PSYCH: Normal affect, normal mood. SKIN: Warm, dry, normal turgor. No rashes or lesions noted. - INFECTION CONTROL TRAVEL OUTSIDE OF THE [place] IN LAST 30 DAYS: No Course - Re-evaluation Re-evalutation: 04/15/19 00:12 Pleasant and well-appearing. Patient is in no acute distress. A chest x-ray was ordered by the pivot nurse and already resulted. After manipulating the images there was no evidence of a rib fracture seen in lateral or PA view, no pneumothorax, no atelectasis. Discussed these findings with patient and plan is to give her a Lidoderm patch and give her an incentive spirometer to ensure that this is not develop atelectasis or a pneumonia. Patient understands instructions and agrees with plan her son is in the room and agrees as well. She is stable for discharge. - Vital Signs Vital signs: Temp Pulse Resp BP Pulse Ox 97.7 F 72 16 163/69 H 100 04/14/19 22:12 04/14/19 22:12 04/14/19 22:12 04/14/19 22:12 04/14/19 22:12 Discharge - Discharge Clinical Impression: Rib pain Fall Qualifiers: Encounter type: initial encounter Qualified Code(s): W19.XXXA - Unspecified fall, initial encounter Condition: Good Disposition: HOME, SELF-CARE Additional Instructions: You were seen in the emergency department this evening for rib pain following a fall this previous Friday. The chest x-ray did not show any evidence of a broken rib or any other concerning findings like a collapsed lung. I am sending you home with an incentive spirometer and I asked that you do the exercises like he did after surgery at least 3 or 4 times a day 10-15 times each session. This will help to keep those lungs open and will prevent pneumonia. If the pain does not start to improve over the next several days, you get severe shortness of breath, you have severe chest pain, or you have any other concerning symptoms please return to the emergency department for reevaluation. Referrals: MARGAUX NAVA MD [Primary Care Provider] - Follow up as needed
[2019-04-15] MEDS ORDERED: LIDOCAINE 5% (700 MG) TRANSDERMAL ADH..PATCH TP ONE (00:06)
[2019-04-15 00:21] VITALS: BP 156/79
== END 2019-04-15 00:35 | disposition home or self-care (01) ==
LOC: ER 22:04
DX: R07.89 Other chest pain (principal); W19.XXXA Unspecified fall, initial encounter; I10 Essential (primary) hypertension; Z86.718 Personal history of other venous thrombosis and embolism; Z91.81 History of falling; Z85.3 Personal history of malignant neoplasm of breast
CPT/HCPCS: 71046

== ENCOUNTER 2019-04-30 07:30 | Inpatient (IN) | payer MEDICARE ==
--- NOTE | 2019-05-18 13:37 | RADIOLOGY REPORT (SQ) ---
EXAM DESCRIPTION: CHEST PA/LATERAL COMPLETED DATE/TIME: 05/18/2019 1:29 pm REASON FOR STUDY: COUGH COMPARISON: 04/14/2019 EXAM PARAMETERS: NUMBER OF VIEWS: two views TECHNIQUE: Digital Frontal and Lateral radiographic views of the chest acquired. RADIATION DOSE: NA LIMITATIONS: none FINDINGS: LUNGS AND PLEURA: Asymmetric right lower lobe airspace disease. This could represent atel ectasis, pneumonia or asymmetric edema. MEDIASTINUM AND HILAR STRUCTURES: No masses or contour abnormalities. HEART AND VASCULAR STRUCTURES: Stable in appearance. BONES: No acute findings. HARDWARE: None in the chest. OTHER: No other significant finding. IMPRESSION: Asymmetric right lower lobe airspace disease as described. Differential includes atelec tasis, pneumonia or asymmetric edema. TECHNICAL DOCUMENTATION: JOB ID: [id number] [employer]- All Rights Reserved Reading location - IP/workstation name: [email or web address]
[2019-05-18 14:07] LABS: HEMATOCRIT 38.6 % (36.0-47.0); MEAN CORPUSCULAR HEMOGLOBIN 31.5 pg (27.0-33.4); MEAN CORPUSCULAR HGB CONC 33.8 g/dL (32.0-36.0); MEAN CORPUSCULAR VOLUME 93 fl (80-97); PLATELET COUNT 402 10^3/uL (150-450); RED BLOOD COUNT 4.14 10^6/uL (3.72-5.28); RED CELL DISTRIBUTION WIDTH 13.6 % (11.5-14.0); WHITE BLOOD COUNT 7.7 10^3/uL (4.0-10.5)
[2019-05-18 14:28] LABS: ANION GAP 16 (5-19); BLOOD UREA NITROGEN 15 mg/dL (7-20); CALCIUM 9.7 mg/dL (8.4-10.2); CARBON DIOXIDE 24 mmol/L (22-30); CHLORIDE 99 mmol/L (98-107); GLUCOSE 93 mg/dL (75-110); POTASSIUM 4.2 mmol/L (3.6-5.0)
--- NOTE | 2019-05-18 20:55 | EKG REPORT ---
SEVERITY:- NORMAL ECG - SINUS RHYTHM : Confirmed by: Ting Abad MD 18-May-2019 20:54:49
[2019-05-28] MEDS ORDERED: ACETAMINOPHEN 325 MG TABLET ONE (04:51)
[2019-05-28] MEDS ORDERED: PREGABALIN 50 MG CAPSULE ONE (04:51)
[2019-05-28] MEDS ORDERED: CEFOXITIN SODIUM 2 GM in DEXTROSE 5%-WATER 100 ML IV PRN (05:00)
[2019-05-28] MEDS ORDERED: PREGABALIN 50 MG CAPSULE PO PRN (05:00)
[2019-05-28] MEDS ORDERED: IBUPROFEN 800 MG in NORMAL SALINE 250 ML IV PRN (05:00)
[2019-05-28] MEDS ORDERED: ACETAMINOPHEN 325 MG TABLET PO PRN (05:00)
[2019-05-28] MEDS ORDERED: FENTANYL CITRATE INJ/PF 100 MCG/2 ML AMPUL ONE (07:11)
[2019-05-28] MEDS ORDERED: MIDAZOLAM 2 MG/2 ML INJ ONE (07:11)
[2019-05-28] MEDS ORDERED: HYDROMORPHONE HCL INJ/PF 2 MG/ML AMPULE ONE (07:12)
[2019-05-28] MEDS ORDERED: PROPOFOL INJ 200 MG/20 ML VIAL IV ONE (07:12)
[2019-05-28] MEDS ORDERED: BUPIVACAINE HCL 0.25 % INJ/PF (2.5 MG/1 ML) 30 ML VIAL ONE (07:19)
[2019-05-28] MEDS ORDERED: FENTANYL CITRATE INJ/PF 100 MCG/2 ML AMPUL IV PRN ×3 (08:30)
[2019-05-28] MEDS ORDERED: DIPHENHYDRAMINE HCL 50 MG/ML VIAL IV PRN (08:30)
[2019-05-28] MEDS ORDERED: MEPERIDINE HCL/PF INJ 25 MG/1 ML DISP.SYRIN IV PRN (08:30)
[2019-05-28] MEDS ORDERED: PROMETHAZINE HCL INJ 25 MG/1 ML VIAL IV PRN ×2 (08:30)
[2019-05-28] MEDS ORDERED: HYDROMORPHONE HCL INJ/PF 2 MG/ML AMPULE IV PRN (08:31)
[2019-05-28] MEDS ORDERED: FENTANYL CITRATE INJ/PF 250 MCG/5 ML AMPULE ONE (08:41)
[2019-05-28] MEDS ORDERED: LIDOCAINE 1% INJ (10 MG/ML) 10 ML MDV INJ ONE (08:54)
[2019-05-28] MEDS ORDERED: BUPIVACAINE INJ/PF LIPOSOME/PF 266 MG/20 ML SDV ONE (10:20)
[2019-05-28] MEDS ORDERED: CEFOXITIN INJ 2 GM VIAL ONE (10:26)
[2019-05-28] MEDS ORDERED: DEXTROSE 5%-LACTATED RINGERS 1,000 ML IV PRN (10:57)
[2019-05-28] MEDS ORDERED: RINGERS SOLUTION,LACTATED 1,000 ML IV PRN (11:09)
[2019-05-28] MEDS ORDERED: METOPROLOL TARTRATE PF/INJ 5 MG/5 ML SDV IV ONE (11:20)
[2019-05-28] MEDS ORDERED: HYDRALAZINE HCL INJ/PF 20 MG/1 ML SDV ONE (11:20)
[2019-05-28] MEDS: FENTANYL CITRATE INJ/PF 100 MCG/2 ML AMPUL ONE ×2 (11:24→11:29)
[2019-05-28] MEDS: HYDROMORPHONE HCL INJ/PF 2 MG/ML AMPULE ONE ×2 (11:43→11:48)
--- NOTE | 2019-05-28 11:51 | Operative Report ---
Nonrecallable Operative Report DATE OF SURGERY: 05/28/19 PREOPERATIVE DIAGNOSIS: 1. History of diverticular bleeding. 2. Parastomal hernia. 3. Unwanted colostomy POSTOPERATIVE DIAGNOSIS: Same as above OPERATION: 1. Takedown of left lower quadrant colostomy. 2. Stapled EEA colorectal anastomosis. 3. Hernia mesh repair of left lower quadrant hernia. 4. Flexible sigmoidoscopy. SURGEON: SOHAIL JEAN ANESTHESIA: GA TISSUE REMOVED OR ALTERED: Colostomy COMPLICATIONS: None apparent ESTIMATED BLOOD LOSS: 200 cc PROCEDURE: Drains/implants: 9 x 15 cm De Young bio-a hernia mesh. Procedure in detail: After informed consent was obtained, the patient was brought to the operating room and laid in the supine position. The left lower quadrant colostomy was closed using a 0 silk running, locking suture. The area of the abdomen was prepped and draped in a normal sterile fashion. A vertical midline incision was created from the pubic symphysis to the area just above the umbilicus. This was made within the bounds of a previous scar. Dissection was carried through the subcutaneous tissues sharply. The abdomen was entered sharply. The abdomen appeared to be relatively free of significant adhesions. The parastomal hernia was noted in the left lower quadrant. Attention was then turned to takedown of the colostomy and isolation of the hernia. An elliptical incision was created around the colostomy site. Dissection was carried through the subcutaneous tissues using sharp dissection and electrocaut stanley. The dissection was taken all the way to the abdominal fascia. There was a large hernia sac present. Once the colostomy was freed, it was returned to the abdominal cavity. The hernia sac was then dissected free of the subcutaneous tissues. Once the hernia sac was resected, the Omni retractor was placed on the patient, and attention was turned to the creation of the colorectal anastomosis. The rectum was freed from the surrounding pelvic tissues. A contour stapling device was then used to divide the rectum at the rectosigmoid junction. A small portion of rectum was removed from the patient. Next, EEA dilators were used to dilate the rectum. The 25 and 29 EEA dilator passed very easily through the rectum. A 29 EEA stapler was chosen. The anvil was inserted into the descending colon, after the colostomy was resected. The anvil was sutured in place using 2-0 Vicryl pursestring suture. Next, the 29 EEA stapler was inserted into the rectum, and passed up to the staple line. The spike was deployed through the staple line. The anvil and stapler were then , and tightened. The stapler was then fired according to oxygen furnace operator recommendations. Once this was completed, the stapler was removed. The proximal descending colon was clamped, and flexible sigmoidoscopy was undertaken. A flexible sigmoidoscope was inserted into the rectum, and air was insufflated into the rectum. The pelvis was filled with irrigation. The rectum was filled with air. Air was found to escape around the scope, through the anus. No air was found to escape into the abdominal cavity, through the staple line. The staple line was visualized endoscopically, and found to be intact. Once this was confirmed, air was suctioned from the rectum, and the scope was removed. The abdomen was copiously irrigated and suctioned. Attention was then turned to closure of the left lower quadrant hernia. A 9 x 15 cm De Young Bio-A hernia mesh was chosen to cover the defect adequately. The mesh was sutured to the anterior abdominal wall in 4 quadrants using #1 Vicryl suture in mattress fashion. Next, the fascial defect was closed using #1 Prolene suture in simple running fashion. After this was completed, attention was turned to closure of the anterior abdominal wall. The midline abdominal wall was closed using #1 PDS suture in simple running fashion. The overlying skin was closed using skin ramu. A Xeroform wick was placed in the left lower quadrant incision, and the skin was closed over the Xeroform wick using skin ramu. Dressings were placed, and the procedure was concluded. All sponge, instrument, and needle counts were correct x2. Condition: Fair.
[2019-05-28 12:10] LABS: HEMATOCRIT 26.1 % (36.0-47.0); HEMOGLOBIN 8.7 g/dL (12.0-15.5); MEAN CORPUSCULAR HEMOGLOBIN 31.2 pg (27.0-33.4); MEAN CORPUSCULAR HGB CONC 33.3 g/dL (32.0-36.0); MEAN CORPUSCULAR VOLUME 94 fl (80-97); PLATELET COUNT 290 10^3/uL (150-450); RED BLOOD COUNT 2.79 10^6/uL (3.72-5.28); RED CELL DISTRIBUTION WIDTH 12.8 % (11.5-14.0); WHITE BLOOD COUNT 13.4 10^3/uL (4.0-10.5)
[2019-05-28 12:35] LABS: ANION GAP 14 (5-19); BLOOD UREA NITROGEN 7 mg/dL (7-20); CALCIUM 7.3 mg/dL (8.4-10.2); CARBON DIOXIDE 15 mmol/L (22-30); CHLORIDE 104 mmol/L (98-107); GLUCOSE 99 mg/dL (75-110); POTASSIUM 3.6 mmol/L (3.6-5.0)
[2019-05-28] MEDS: KETOROLAC TROMETHAMINE INJ/PF 30 MG/1 ML SDV IV SCH ×2 (13:41→22:23)
[2019-05-28] MEDS ORDERED: TIZANIDINE HCL 2 MG PO SCH (14:00)
[2019-05-28] MEDS: HYDROCODONE/ACETAMINOPHEN 10-325 MG TABLET PO PRN (15:11)
[2019-05-28] MEDS: TIZANIDINE HCL 4 MG TABLET PO SCH ×2 (16:20→18:51)
[2019-05-28] MEDS: MORPHINE SULFATE 10 MG/ML INJ IV PRN (16:25)
[2019-05-28] MEDS: CEFOXITIN SODIUM 2 GM in DEXTROSE 5%-WATER 100 ML IV SCH ×2 (16:34→22:22)
[2019-05-28] MEDS ORDERED: NEOSTIGMINE METHYLSULFATE 10 MG/10 ML VIAL ONE (20:21)
[2019-05-28] MEDS ORDERED: ROCURONIUM BROMIDE INJ 50 MG/5 ML VIAL IV ONE (20:21)
[2019-05-28] MEDS ORDERED: ONDANSETRON HCL INJ/PF 4 MG/2 ML SDV ONE (20:21)
[2019-05-28] MEDS ORDERED: SUCCINYLCHOLINE CHLORIDE INJ 200 MG/10 ML VIAL ONE (20:21)
[2019-05-28] MEDS ORDERED: GLYCOPYRROLATE 1 MG/5 ML VIAL ONE (20:21)
[2019-05-28] MEDS ORDERED: LIDOCAINE 2% INJ-PF (20 MG/ML) 2 ML AMPUL ONE (20:21)
[2019-05-28] MEDS: FAMOTIDINE INJ/PF 20 MG/2 ML SDV IV SCH (22:23)
[2019-05-28] MEDS: GABAPENTIN 100 MG CAPSULE PO SCH (22:23)
[2019-05-29] MEDS: HYDROCODONE/ACETAMINOPHEN 10-325 MG TABLET PO PRN ×2 (04:04→23:34)
[2019-05-29] MEDS: KETOROLAC TROMETHAMINE INJ/PF 30 MG/1 ML SDV IV SCH ×3 (05:25→22:15)
[2019-05-29 06:11] LABS: ABSOLUTE LYMPHOCYTES (AUTO) 0.8 10^3/uL (0.5-4.7); ABSOLUTE MONOCYTES (AUTO) 1.5 10^3/uL (0.1-1.4); ABSOLUTE NEUT (AUTO) 13.4 10^3/uL (1.7-8.2); BASOPHILS % (AUTO) 0.3 % (0-2); HEMATOCRIT 25.9 % (36.0-47.0); HEMOGLOBIN 8.7 g/dL (12.0-15.5); LYMPHOCYTES % (AUTO) 5.4 % (13-45); MEAN CORPUSCULAR HEMOGLOBIN 31.2 pg (27.0-33.4); MEAN CORPUSCULAR HGB CONC 33.4 g/dL (32.0-36.0); MEAN CORPUSCULAR VOLUME 93 fl (80-97); MONOCYTES % (AUTO) 9.5 % (3-13); PLATELET COUNT 321 10^3/uL (150-450); RED BLOOD COUNT 2.78 10^6/uL (3.72-5.28); RED CELL DISTRIBUTION WIDTH 13.1 % (11.5-14.0); SEGMENTED NEUTROPHILS % (AUTO) 84.8 % (42-78); TOTAL CELLS COUNTED % (AUTO) 100 %; WHITE BLOOD COUNT 15.8 10^3/uL (4.0-10.5)
[2019-05-29 06:21] LABS: ALBUMIN 2.1 g/dL (3.5-5.0); ALKALINE PHOSPHATASE 35 U/L (38-126); ANION GAP 10 (5-19); ASPARTATE AMINO TRANSFERASE 24 U/L (14-36); BILIRUBIN,DIRECT 0.1 mg/dL (0.0-0.4); BILIRUBIN,TOTAL 0.7 mg/dL (0.2-1.3); BLOOD UREA NITROGEN 13 mg/dL (7-20); CALCIUM 7.9 mg/dL (8.4-10.2); CARBON DIOXIDE 20 mmol/L (22-30); CHLORIDE 101 mmol/L (98-107); GLUCOSE 96 mg/dL (75-110); POTASSIUM 3.9 mmol/L (3.6-5.0); TOTAL PROTEIN 4.1 g/dL (6.3-8.2)
[2019-05-29] MEDS: DULOXETINE HCL 30 MG CAPSULE.DR PO SCH ×2 (09:14→09:18)
[2019-05-29] MEDS: NORMAL SALINE 1000 ML 1,000 ML IV PRN ×2 (09:18→23:34)
[2019-05-29] MEDS: GABAPENTIN 100 MG CAPSULE PO SCH ×2 (09:19→22:16)
[2019-05-29] MEDS: ENOXAPARIN SODIUM INJ 40 MG/0.4 ML DISP.SYRIN SUBCUT SCH (09:19)
[2019-05-29] MEDS: FAMOTIDINE INJ/PF 20 MG/2 ML SDV IV SCH ×2 (09:19→22:16)
[2019-05-29] MEDS: TIZANIDINE HCL 4 MG TABLET PO SCH ×3 (09:19→17:13)
[2019-05-29] MEDS: LOSARTAN POTASSIUM 50 MG TABLET PO SCH (09:19)
[2019-05-29] MEDS ORDERED: (PENDING PHARMACY ID) (Duloxetine Hcl [Duloxetine Hcl] 60 MG) PO SCH (10:00)
--- NOTE | 2019-05-29 10:51 | PDOC PROGRESS REPORT ---
Subjective Progress Note for:: 05/29/19 Reason For Visit: S/P COLOSTOMY REVERSAL Physical Exam Vital Signs: Temp Pulse Resp BP Pulse Ox 99.1 F 80 16 145/63 H 98 05/29/19 07:20 05/29/19 07:20 05/29/19 07:20 05/29/19 07:20 05/29/19 07:20 Intake & Output 05/28/19 05/29/19 05/30/19 06:59 06:59 06:59 Intake Total 3110 Output Total 2120 Balance 990 Weight 64.7 kg Results Laboratory Results: 05/29/19 05:51 05/29/19 05:51 05/28/19 05/28/19 05/29/19 11:56 11:56 05:51 WBC 13.4 H 15.8 H RBC 2.79 L 2.78 L Hgb 8.7 L 8.7 L Hct 26.1 L 25.9 L MCV 94 93 MCH 31.2 31.2 MCHC 33.3 33.4 RDW 12.8 13.1 Plt Count 290 321 Seg Neutrophils % 84.8 H Sodium 132.7 L Potassium 3.6 Chloride 104 Carbon Dioxide 15 L Anion Gap 14 BUN 7 Creatinine 0.35 L Est GFR ( Amer) > 60 Glucose 99 Calcium 7.3 L Total Bilirubin AST Alkaline Phosphatase Total Protein Albumin 05/29/19 05:51 WBC RBC Hgb Hct MCV MCH MCHC RDW Plt Count Seg Neutrophils % Sodium 130.8 L Potassium 3.9 Chloride 101 Carbon Dioxide 20 L Anion Gap 10 BUN 13 Creatinine 0.63 Est GFR ( Amer) > 60 Glucose 96 Calcium 7.9 L Total Bilirubin 0.7 AST 24 Alkaline Phosphatase 35 L Total Protein 4.1 L Albumin 2.1 L Impressions: Chest X-Ray 05/18/19 13:18 IMPRESSION: Asymmetric right lower lobe airspace disease as described. Differential includes atelectasis, pneumonia or asymmetric edema. Assessment & Plan - Diagnosis (1) Colostomy present Is this a current diagnosis for this admission?: Yes (2) History of diverticulosis Is this a current diagnosis for this admission?: Yes - Plan Summary Plan Summary: This is a 78-year-old female status post colostomy reversal and repair of a parastomal hernia. She is doing well today. Her urine output is good. She complains of pain, but she appears comfortable. Afebrile overnight. Dressings are intact. No nausea or vomiting. Denies flatus. Aggressive pulmonary toilet. Out of bed today. Continue full liquid diet. Awaiting bowel function. PT/OT consult.
[2019-05-29] MEDS: MORPHINE SULFATE 10 MG/ML INJ IV PRN (22:14)
[2019-05-30] MEDS: KETOROLAC TROMETHAMINE INJ/PF 30 MG/1 ML SDV IV SCH ×3 (06:05→22:23)
[2019-05-30] MEDS: MORPHINE SULFATE 10 MG/ML INJ IV PRN ×3 (06:06→20:08)
[2019-05-30 06:49] LABS: ANION GAP 9 (5-19); BLOOD UREA NITROGEN 17 mg/dL (7-20); CALCIUM 8.4 mg/dL (8.4-10.2); CARBON DIOXIDE 25 mmol/L (22-30); CHLORIDE 100 mmol/L (98-107); GLUCOSE 88 mg/dL (75-110); POTASSIUM 3.7 mmol/L (3.6-5.0)
[2019-05-30] MEDS: ENOXAPARIN SODIUM INJ 40 MG/0.4 ML DISP.SYRIN SUBCUT SCH (10:02)
[2019-05-30] MEDS: DULOXETINE HCL 30 MG CAPSULE.DR PO SCH ×2 (10:02→10:04)
[2019-05-30] MEDS: FAMOTIDINE INJ/PF 20 MG/2 ML SDV IV SCH ×2 (10:02→22:24)
[2019-05-30] MEDS: LOSARTAN POTASSIUM 50 MG TABLET PO SCH (10:03)
[2019-05-30] MEDS: GABAPENTIN 100 MG CAPSULE PO SCH ×2 (10:03→22:24)
[2019-05-30] MEDS: TIZANIDINE HCL 4 MG TABLET PO SCH ×3 (10:03→18:48)
[2019-05-30] MEDS: HYDRALAZINE HCL INJ/PF 20 MG/1 ML SDV IV PRN (11:47)
[2019-05-30] MEDS: ONDANSETRON HCL INJ/PF 4 MG/2 ML SDV IV PRN ×2 (12:27→17:07)
--- NOTE | 2019-05-30 13:49 | PDOC PROGRESS REPORT ---
Subjective Progress Note for:: 05/30/19 Reason For Visit: S/P COLOSTOMY REVERSAL Physical Exam Vital Signs: Temp Pulse Resp BP Pulse Ox 97.7 F 87 24 H 197/94 H 96 05/30/19 11:43 05/30/19 11:43 05/30/19 11:43 05/30/19 11:43 05/30/19 11:43 Intake & Output 05/29/19 05/30/19 05/31/19 06:59 06:59 06:59 Intake Total 3110 2840 Output Total 2120 725 Balance 990 2115 Weight 64.7 kg 63.8 kg Results Laboratory Results: 05/29/19 05:51 05/30/19 06:06 05/30/19 06:06 Sodium 133.8 L Potassium 3.7 Chloride 100 Carbon Dioxide 25 Anion Gap 9 BUN 17 Creatinine 0.81 Est GFR ( Amer) > 60 Glucose 88 Calcium 8.4 Impressions: Chest X-Ray 05/18/19 13:18 IMPRESSION: Asymmetric right lower lobe airspace disease as described. Differential includes atelectasis, pneumonia or asymmetric edema. Assessment & Plan - Diagnosis (1) Colostomy present Is this a current diagnosis for this admission?: Yes (2) History of diverticulosis Is this a current diagnosis for this admission?: Yes - Plan Summary Plan Summary: This is a 78-year-old female status post colostomy reversal and repair of a parastomal hernia. She is doing reasonably well today. Her campos catheter is out. She complains of pain, but she appears comfortable. Afebrile overnight. Dressings are intact. Still denies flatus. Did have one episode of nausea this morning, but no vomiting. Her son reports confusion when getting Morphine. Cont aggressive pulmonary toilet. Out of bed today, walk in halls. NPO for now, except meds. Still awaiting bowel function. PT/OT following. Decrease Morphine dose due to pt confusion with administration.
[2019-05-30] MEDS ORDERED: DEXTROSE 50%-WATER 25 GM/50 ML DISP.SYRIN IV PRN ×2 (13:50)
[2019-05-30] MEDS ORDERED: GLUCAGON,HUMAN RECOMB 1 MG INJ SUBCUT PRN (13:50)
[2019-05-30] MEDS ORDERED: DEXTROSE 40% GEL 15 GM TUBE PO PRN ×2 (13:50)
[2019-05-30] MEDS: HYDROCODONE/ACETAMINOPHEN 10-325 MG TABLET PO PRN (17:07)
[2019-05-31] MEDS: HYDROCODONE/ACETAMINOPHEN 10-325 MG TABLET PO PRN ×4 (01:38→23:56)
[2019-05-31] MEDS: NORMAL SALINE 1000 ML 1,000 ML IV PRN ×2 (01:39→23:56)
[2019-05-31] MEDS: KETOROLAC TROMETHAMINE INJ/PF 30 MG/1 ML SDV IV SCH ×3 (05:46→21:08)
[2019-05-31 06:19] LABS: ABSOLUTE BASOPHILS # (AUTO) 0.1 10^3/uL (0.0-0.2); ABSOLUTE EOSINOPHILS # (AUTO) 0.1 10^3/uL (0.0-0.6); ABSOLUTE LYMPHOCYTES (AUTO) 0.9 10^3/uL (0.5-4.7); ABSOLUTE MONOCYTES (AUTO) 0.9 10^3/uL (0.1-1.4); ABSOLUTE NEUT (AUTO) 8.6 10^3/uL (1.7-8.2); BASOPHILS % (AUTO) 0.5 % (0-2); EOSINOPHILS % (AUTO) 1.4 % (0-6); HEMATOCRIT 30.6 % (36.0-47.0); HEMOGLOBIN 10.6 g/dL (12.0-15.5); LYMPHOCYTES % (AUTO) 8.6 % (13-45); MEAN CORPUSCULAR HEMOGLOBIN 32.2 pg (27.0-33.4); MEAN CORPUSCULAR HGB CONC 34.6 g/dL (32.0-36.0); MEAN CORPUSCULAR VOLUME 93 fl (80-97); MONOCYTES % (AUTO) 8.6 % (3-13); PLATELET COUNT 420 10^3/uL (150-450); RED BLOOD COUNT 3.29 10^6/uL (3.72-5.28); SEGMENTED NEUTROPHILS % (AUTO) 80.9 % (42-78); TOTAL CELLS COUNTED % (AUTO) 100 %; WHITE BLOOD COUNT 10.6 10^3/uL (4.0-10.5)
[2019-05-31 06:28] LABS: ANION GAP 11 (5-19); BLOOD UREA NITROGEN 24 mg/dL (7-20); CALCIUM 8.7 mg/dL (8.4-10.2); CARBON DIOXIDE 20 mmol/L (22-30); CHLORIDE 105 mmol/L (98-107); GLUCOSE 78 mg/dL (75-110); POTASSIUM 4.1 mmol/L (3.6-5.0)
[2019-05-31] MEDS: LOSARTAN POTASSIUM 50 MG TABLET PO SCH (10:42)
[2019-05-31] MEDS: GABAPENTIN 100 MG CAPSULE PO SCH ×2 (10:42→21:10)
[2019-05-31] MEDS: TIZANIDINE HCL 4 MG TABLET PO SCH ×3 (10:42→18:12)
[2019-05-31] MEDS: DULOXETINE HCL 30 MG CAPSULE.DR PO SCH (10:42)
[2019-05-31] MEDS: FAMOTIDINE INJ/PF 20 MG/2 ML SDV IV SCH ×2 (10:43→21:10)
[2019-05-31] MEDS: ENOXAPARIN SODIUM INJ 40 MG/0.4 ML DISP.SYRIN SUBCUT SCH (10:43)
[2019-05-31] MEDS: ONDANSETRON HCL INJ/PF 4 MG/2 ML SDV IV PRN ×3 (11:01→23:56)
[2019-05-31] MEDS: MORPHINE SULFATE 10 MG/ML INJ IV PRN (21:13)
[2019-06-01] MEDS: HYDRALAZINE HCL INJ/PF 20 MG/1 ML SDV IV PRN ×2 (03:33→23:51)
[2019-06-01] MEDS: KETOROLAC TROMETHAMINE INJ/PF 30 MG/1 ML SDV IV SCH ×3 (05:48→21:09)
[2019-06-01] MEDS: HYDROCODONE/ACETAMINOPHEN 10-325 MG TABLET PO PRN (08:12)
[2019-06-01] MEDS: DULOXETINE HCL 30 MG CAPSULE.DR PO SCH (09:22)
[2019-06-01] MEDS: LOSARTAN POTASSIUM 50 MG TABLET PO SCH (09:22)
[2019-06-01] MEDS: TIZANIDINE HCL 4 MG TABLET PO SCH ×3 (09:23→17:00)
[2019-06-01] MEDS: GABAPENTIN 100 MG CAPSULE PO SCH ×2 (09:23→21:11)
[2019-06-01] MEDS: FAMOTIDINE INJ/PF 20 MG/2 ML SDV IV SCH ×2 (09:23→21:09)
[2019-06-01] MEDS: ENOXAPARIN SODIUM INJ 40 MG/0.4 ML DISP.SYRIN SUBCUT SCH (09:23)
[2019-06-01] MEDS: NORMAL SALINE 1000 ML 1,000 ML IV PRN (09:25)
--- NOTE | 2019-06-01 10:17 | PDOC PROGRESS REPORT ---
Subjective Progress Note for:: 06/01/19 Reason For Visit: S/P COLOSTOMY REVERSAL Physical Exam Vital Signs: Temp Pulse Resp BP Pulse Ox 98.1 F 121 H 21 H 180/79 H 98 06/01/19 07:42 06/01/19 07:42 06/01/19 07:42 06/01/19 08:00 06/01/19 07:42 Intake & Output 05/31/19 06/01/19 06/02/19 06:59 06:59 06:59 Intake Total 600 1480 948 Output Total 1150 Balance -550 1480 948 Weight 62.6 kg 65.1 kg Results Laboratory Results: 05/31/19 05:37 05/31/19 05:37 Impressions: Chest X-Ray 05/18/19 13:18 IMPRESSION: Asymmetric right lower lobe airspace disease as described. Differential includes atelectasis, pneumonia or asymmetric edema. Assessment & Plan - Diagnosis (1) Colostomy present Is this a current diagnosis for this admission?: Yes (2) History of diverticulosis Is this a current diagnosis for this admission?: Yes - Plan Summary Plan Summary: This is a 78-year-old female status post colostomy reversal and repair of a parastomal hernia. She is doing reasonably well today. She complains of pain, but she appears comfortable. Afebrile overnight. Incisions are clean without sign of infection. She reports 2 bowel movements over the last 24 hours. She continues to pass flatus. She appears less confused today. She complains of intermittent nausea, but her abdomen is soft. The nurse denies vomiting. Cont aggressive pulmonary toilet. Out of bed today, walk in halls. Advance diet. Bowel function returning. PT/OT following. D/c Morphine.
--- NOTE | 2019-06-01 10:22 | PDOC PROGRESS REPORT ---
Subjective Progress Note for:: 05/31/19 Reason For Visit: S/P COLOSTOMY REVERSAL Physical Exam Vital Signs: Intake & Output 05/31/19 06:59 Intake Total 600 Output Total 1150 Balance -550 Weight 62.6 kg Results Laboratory Results: 05/31/19 05:37 05/31/19 05:37 Impressions: Chest X-Ray 05/18/19 13:18 IMPRESSION: Asymmetric right lower lobe airspace disease as described. Differential includes atelectasis, pneumonia or asymmetric edema. Assessment & Plan - Diagnosis (1) Colostomy present Is this a current diagnosis for this admission?: Yes (2) History of diverticulosis Is this a current diagnosis for this admission?: Yes - Plan Summary Plan Summary: This is a 78-year-old female status post colostomy reversal and repair of a parastomal hernia. She is doing reasonably well today. Her campos catheter is out. She complains of pain, but she appears comfortable. Afebrile overnight. Dressings removed today, as well as LLQ packing. Incisions are clean, without signs of infection. Pt reports a bloody BM this am. Denies nausea or vomiting. Her son reports she still becomes confused when getting Morphine. Cont aggressive pulmonary toilet. Out of bed today, walk in halls. Full liquid diet. Bowel function appears to be returning. PT/OT following. Continue decreased Morphine dose due to pt confusion.
[2019-06-01] MEDS: DOCUSATE SODIUM 100 MG CAPSULE PO SCH ×2 (10:40→17:00)
[2019-06-01] MEDS: PANTOPRAZOLE SODIUM 40 MG TABLET.DR PO SCH (10:40)
[2019-06-01] MEDS: ONDANSETRON HCL INJ/PF 4 MG/2 ML SDV IV PRN (21:10)
[2019-06-02] MEDS: PANTOPRAZOLE SODIUM 40 MG TABLET.DR PO SCH (06:13)
[2019-06-02] MEDS: KETOROLAC TROMETHAMINE INJ/PF 30 MG/1 ML SDV IV SCH (06:13)
[2019-06-02] MEDS: HYDROCODONE/ACETAMINOPHEN 10-325 MG TABLET PO PRN ×2 (06:13→17:01)
[2019-06-02] MEDS: HYDRALAZINE HCL INJ/PF 20 MG/1 ML SDV IV PRN (08:01)
[2019-06-02 08:19] LABS: ANION GAP 15 (5-19); BLOOD UREA NITROGEN 18 mg/dL (7-20); CARBON DIOXIDE 19 mmol/L (22-30); CHLORIDE 102 mmol/L (98-107); GLUCOSE 81 mg/dL (75-110); POTASSIUM 3.9 mmol/L (3.6-5.0)
[2019-06-02] MEDS: ENOXAPARIN SODIUM INJ 40 MG/0.4 ML DISP.SYRIN SUBCUT SCH (09:27)
[2019-06-02] MEDS: DOCUSATE SODIUM 100 MG CAPSULE PO SCH ×3 (09:30→17:01)
[2019-06-02] MEDS: TIZANIDINE HCL 4 MG TABLET PO SCH ×4 (09:30→17:01)
[2019-06-02] MEDS: GABAPENTIN 100 MG CAPSULE PO SCH ×4 (09:30→21:25)
[2019-06-02] MEDS: LOSARTAN POTASSIUM 50 MG TABLET PO SCH ×2 (09:31→09:35)
[2019-06-02] MEDS: FAMOTIDINE INJ/PF 20 MG/2 ML SDV IV SCH ×2 (09:31→21:25)
[2019-06-02] MEDS: DULOXETINE HCL 30 MG CAPSULE.DR PO SCH (09:31)
[2019-06-02] MEDS: ONDANSETRON HCL INJ/PF 4 MG/2 ML SDV IV PRN ×2 (09:37→16:52)
[2019-06-02] MEDS: NORMAL SALINE 1000 ML 1,000 ML IV PRN (11:36)
--- NOTE | 2019-06-02 11:38 | RADIOLOGY REPORT (SQ) ---
EXAM DESCRIPTION: ABDOMEN 2 VIEWS COMPLETED DATE/TIME: 06/02/2019 11:11 am REASON FOR STUDY: nausea, vomiting after surgery. flat and upright Z43.3 ENCOUNTER FOR ATTENTION TO COLOSTOMY K43.5 PARASTOMAL HERNIA WITHOUT OBSTRUCTION OR GANGRENE COMPARISON: 07/06/2018 NUMBER OF VIEWS: Two views. TECHNIQUE: Supine and erect/decubitus radiographic images of the abdomen acquired. LIMITATIONS: None. FINDINGS: FREE AIR: None. No abnormal gas collections. LUNG BASES: Mild patchy right basilar consolidation, likely atelectasis. BOWEL GAS PATTERN: There are few mildly dilated loops of small bowel within the central abdomen measu ring up to 3.8 cm with associated gas fluid levels. Gas noted throughout the visualized colon withou t dilation. CALCIFICATIONS: No suspicious calcifications. SOFT TISSUES: No gross mass or suggestion of organomegaly. HARDWARE: Midline surgical ramu. BONES: Thoracolumbar spondylosis. No acute bony abnormality. OTHER: Surgical clips overlie left axilla. IMPRESSION: 1. No evidence of high-grade obstruction. Few mildly dilated small bowel loops within the central abdomen with associated gas fluid levels. Additional gas noted throughout colonic loops. Findings may represent postoperative ileus versus partial/intermittent obstructive process. 2. Mild patchy right basilar opacities, likely atelectasis. TECHNICAL DOCUMENTATION: JOB ID: [id number] [employer]- All Rights Reserved Reading location - IP/workstation name: [email or web address]
--- NOTE | 2019-06-02 11:39 | PDOC PROGRESS REPORT ---
Subjective Reason For Visit: S/P COLOSTOMY REVERSAL Physical Exam Vital Signs: Temp Pulse Resp BP Pulse Ox 98.7 F 125 H 19 185/98 H 95 06/02/19 07:43 06/02/19 07:43 06/02/19 07:43 06/02/19 07:43 06/02/19 07:43 Intake & Output 06/01/19 06/02/19 06/03/19 06:59 06:59 06:59 Intake Total 1480 1779 Balance 1480 1779 Weight 65.1 kg 64.9 kg Results Laboratory Results: 05/31/19 05:37 06/02/19 06:57 06/02/19 06:57 Sodium 135.9 L Potassium 3.9 Chloride 102 Carbon Dioxide 19 L Anion Gap 15 BUN 18 Creatinine 0.64 Est GFR ( Amer) > 60 Glucose 81 Calcium 9.0 Impressions: Chest X-Ray 05/18/19 13:18 IMPRESSION: Asymmetric right lower lobe airspace disease as described. Differential includes atelectasis, pneumonia or asymmetric edema. Assessment & Plan - Diagnosis (1) Colostomy present Is this a current diagnosis for this admission?: Yes (2) History of diverticulosis Is this a current diagnosis for this admission?: Yes - Plan Summary Plan Summary: This is a 78-year-old female status post colostomy reversal and repair of a parastomal hernia. She reports worsening nausea today. She also complains of pain, but she appears comfortable. Afebrile overnight. Incisions are clean without sign of infection. She reports passing a "large amount" of flatus this morning. She has no significant confusion today. Her abdomen remains soft. The nurse denies vomiting. The pt is very resistant to mobilization. Cont aggressive pulmonary toilet. Out of bed today, walk in halls. Will restart PRN Morphine to facilitate ambulation. X-rays for nausea show abundant air in the right colon. No evidence of complete obstruction. Likely ileus pattern. Cont with supportive care --> restart IV fluids due to poor PO intake. Electrolytes look good. Bowel function appears to be returning. PT/OT following.
[2019-06-02] MEDS: MORPHINE SULFATE 10 MG/ML INJ IV PRN (21:24)
[2019-06-03] MEDS: PANTOPRAZOLE SODIUM 40 MG TABLET.DR PO SCH (05:20)
[2019-06-03] MEDS: NORMAL SALINE 1000 ML 1,000 ML IV PRN ×2 (05:20→17:06)
[2019-06-03] MEDS: HYDROCODONE/ACETAMINOPHEN 10-325 MG TABLET PO PRN ×3 (05:21→20:51)
--- NOTE | 2019-06-03 09:10 | RADIOLOGY REPORT (SQ) ---
EXAM DESCRIPTION: KUB/ABDOMEN (SINGLE VIEW) COMPLETED DATE/TIME: 06/03/2019 8:14 am REASON FOR STUDY: nausea after surgery Z43.3 ENCOUNTER FOR ATTENTION TO COLOSTOMY K43.5 PARASTOMAL HERNIA WITHOUT OBSTRUCTION OR GANGRENE COMPARISON: Abdominal films 06/02/2019, 07/06/2018 NUMBER OF VIEWS: One view. TECHNIQUE: Supine radiographic image of the abdomen acquired. LIMITATIONS: None. FINDINGS: BOWEL GAS PATTERN: Persistent dilatation of small bowel and colon. Few air bubbles in dis tin descending colon. Midline anterior abdominal wall ramu, this probably represents a postoperat kasie ileus, similar compared to 06/02/2019. CALCIFICATIONS: No suspicious calcifications. SOFT TISSUES: No gross mass or suggestion of organomegaly. HARDWARE: Midline anterior abdominal wall skin ramu BONES: No acute fracture. No worrisome bone lesions. OTHER: No other significant finding. IMPRESSION: Persistent gaseous distension of small bowel and colon likely an ileus. This is similar compared to 06/02/2019 TECHNICAL DOCUMENTATION: JOB ID: [id number] [employer]- All Rights Reserved Reading location - IP/workstation name: [email or web address]
[2019-06-03] MEDS: ENOXAPARIN SODIUM INJ 40 MG/0.4 ML DISP.SYRIN SUBCUT SCH (09:28)
[2019-06-03] MEDS: FAMOTIDINE INJ/PF 20 MG/2 ML SDV IV SCH (09:29)
[2019-06-03] MEDS: DULOXETINE HCL 30 MG CAPSULE.DR PO SCH (09:32)
[2019-06-03] MEDS: GABAPENTIN 100 MG CAPSULE PO SCH ×2 (09:32→21:00)
[2019-06-03] MEDS: LOSARTAN POTASSIUM 50 MG TABLET PO SCH (09:32)
[2019-06-03] MEDS: TIZANIDINE HCL 4 MG TABLET PO SCH ×3 (09:32→17:06)
[2019-06-03] MEDS: DOCUSATE SODIUM 100 MG CAPSULE PO SCH ×2 (09:32→17:06)
--- NOTE | 2019-06-03 10:40 | PDOC PROGRESS REPORT ---
Subjective Progress Note for:: 06/03/19 Reason For Visit: S/P COLOSTOMY REVERSAL Physical Exam Vital Signs: Temp Pulse Resp BP Pulse Ox 98.3 F 107 H 16 150/80 H 94 06/03/19 07:32 06/03/19 07:32 06/03/19 07:32 06/03/19 07:32 06/03/19 07:32 Intake & Output 06/02/19 06/03/19 06/04/19 06:59 06:59 06:59 Intake Total 1779 2019 Output Total 200 Balance 1779 1820 Weight 64.9 kg 64.1 kg Results Laboratory Results: 05/31/19 05:37 06/02/19 06:57 Impressions: Chest X-Ray 05/18/19 13:18 IMPRESSION: Asymmetric right lower lobe airspace disease as described. Differential includes atelectasis, pneumonia or asymmetric edema. Abdomen X-Ray 06/02/19 00:00 IMPRESSION: 1. No evidence of high-grade obstruction. Few mildly dilated small bowel loops within the central abdomen with associated gas fluid levels. Additional gas noted throughout colonic loops. Findings may represent postoperative ileus versus partial/intermittent obstructive process. 2. Mild patchy right basilar opacities, likely atelectasis. KUB X-Ray 06/03/19 00:00 IMPRESSION: Persistent gaseous distension of small bowel and colon likely an ileus. This is similar compared to 06/02/2019 Assessment & Plan - Diagnosis (1) Colostomy present Is this a current diagnosis for this admission?: Yes (2) History of diverticulosis Is this a current diagnosis for this admission?: Yes - Plan Summary Plan Summary: This is a 78-year-old female status post colostomy reversal and repair of a parastomal hernia. She reports that her pain and nausea are improved. She appears comfortable this AM. Still afebrile. Incisions are clean without sign of infection. She reports passing flatus this morning. She is alert and oriented. Her abdomen remains soft. The nurse denies vomiting. The pt is still very resistant to mobilization. Cont aggressive pulmonary toilet. Out of bed today, walk in halls. Repeat X-rays today show abundant air in the right colon. No evidence of complete obstruction. Likely ileus pattern. Cont with supportive care --> continue IV fluids due to poor PO intake. Awaiting return of full bowel function. PT/OT following.
[2019-06-03] MEDS: ONDANSETRON HCL INJ/PF 4 MG/2 ML SDV IV PRN ×2 (14:13→20:51)
[2019-06-03] MEDS: MORPHINE SULFATE 10 MG/ML INJ IV PRN (22:44)
[2019-06-04 04:58] LABS: HEMATOCRIT 30.7 % (36.0-47.0); HEMOGLOBIN 10.4 g/dL (12.0-15.5); MEAN CORPUSCULAR HEMOGLOBIN 31.3 pg (27.0-33.4); MEAN CORPUSCULAR VOLUME 92 fl (80-97); PLATELET COUNT 595 10^3/uL (150-450); RED BLOOD COUNT 3.34 10^6/uL (3.72-5.28); RED CELL DISTRIBUTION WIDTH 13.3 % (11.5-14.0); WHITE BLOOD COUNT 12.1 10^3/uL (4.0-10.5)
[2019-06-04 05:08] LABS: ANION GAP 12 (5-19); BLOOD UREA NITROGEN 13 mg/dL (7-20); CARBON DIOXIDE 22 mmol/L (22-30); CHLORIDE 103 mmol/L (98-107); GLUCOSE 84 mg/dL (75-110); POTASSIUM 3.7 mmol/L (3.6-5.0)
[2019-06-04] MEDS: ONDANSETRON HCL INJ/PF 4 MG/2 ML SDV IV PRN ×3 (06:34→19:47)
[2019-06-04] MEDS: HYDROCODONE/ACETAMINOPHEN 10-325 MG TABLET PO PRN (06:34)
[2019-06-04] MEDS: PANTOPRAZOLE SODIUM 40 MG TABLET.DR PO SCH (06:34)
[2019-06-04 06:40] LABS: ABSOLUTE LYMPHOCYTES# (MANUAL) 1.6 10^3/uL (0.5-4.7); ABSOLUTE MONOCYTES # (MANUAL) 1.3 10^3/uL (0.1-1.4); BAND NEUTROPHILS % (MANUAL) 1 % (3-5); BASOPHILS % (MANUAL) 0 % (0-2); EOSINOPHILS % (MANUAL) 3 % (0-6); LYMPHOCYTES % (MANUAL) 13 % (13-45); MONOCYTES % (MANUAL) 11 % (3-13); RBC MORPHOLOGY COMMENT NORMO-CYTIC/CHROMIC; SEGMENTED NEUTROPHILS % (MAN) 72 % (42-78); TOTAL CELLS COUNTED 100
[2019-06-04 06:41] LABS: PLATELET COMMENT INCREASED
--- NOTE | 2019-06-04 10:07 | PDOC PROGRESS REPORT ---
Subjective Progress Note for:: 06/04/19 Reason For Visit: S/P COLOSTOMY REVERSAL Physical Exam Vital Signs: Temp Pulse Resp BP Pulse Ox 98.2 F 110 H 17 172/87 H 96 06/04/19 07:53 06/04/19 07:53 06/04/19 07:53 06/04/19 07:53 06/04/19 07:53 Intake & Output 06/03/19 06/04/19 06/05/19 06:59 06:59 06:59 Intake Total 2019 1443 Output Total 200 Balance 1820 1443 Weight 64.1 kg 63.5 kg Results Laboratory Results: 06/04/19 04:31 06/04/19 04:31 06/04/19 06/04/19 04:31 04:31 WBC 12.1 H RBC 3.34 L Hgb 10.4 L Hct 30.7 L MCV 92 MCH 31.3 MCHC 34.0 RDW 13.3 Plt Count 595 H Seg Neutrophils % Not Reportable Sodium 136.5 L Potassium 3.7 Chloride 103 Carbon Dioxide 22 Anion Gap 12 BUN 13 Creatinine 0.56 Est GFR ( Amer) > 60 Glucose 84 Calcium 9.0 Impressions: Chest X-Ray 05/18/19 13:18 IMPRESSION: Asymmetric right lower lobe airspace disease as described. Differential includes atelectasis, pneumonia or asymmetric edema. Abdomen X-Ray 06/02/19 00:00 IMPRESSION: 1. No evidence of high-grade obstruction. Few mildly dilated small bowel loops within the central abdomen with associated gas fluid levels. Additional gas noted throughout colonic loops. Findings may represent postoperative ileus versus partial/intermittent obstructive process. 2. Mild patchy right basilar opacities, likely atelectasis. KUB X-Ray 06/03/19 00:00 IMPRESSION: Persistent gaseous distension of small bowel and colon likely an ileus. This is similar compared to 06/02/2019 Assessment & Plan - Diagnosis (1) Colostomy present Is this a current diagnosis for this admission?: Yes (2) History of diverticulosis Is this a current diagnosis for this admission?: Yes - Plan Summary Plan Summary: This is a 78-year-old female status post colostomy reversal and repair of a parastomal hernia. She reports nausea again this am, but she appears comfortable. Still afebrile. Incisions are clean without sign of infection. She reports passing flatus this morning. She is alert and oriented. Her abdomen remains soft. The nurse denies vomiting. The pt is still refusing to mobilize. Cont aggressive pulmonary toilet. Out of bed today, walk in halls. Repeat X-rays show abundant air in the right colon. No evidence of complete obstruction. Likely ileus pattern. --> last BM was 2 days ago. Continued ileus. CT scan of the abd/pelvis to r/o pelvic abscess or leak. Still awaiting return of full bowel function. PT/OT following.
[2019-06-04] MEDS: LOSARTAN POTASSIUM 50 MG TABLET PO SCH (10:34)
[2019-06-04] MEDS: DOCUSATE SODIUM 100 MG CAPSULE PO SCH ×2 (10:34→18:29)
[2019-06-04] MEDS: DULOXETINE HCL 30 MG CAPSULE.DR PO SCH (10:35)
[2019-06-04] MEDS: TIZANIDINE HCL 4 MG TABLET PO SCH ×3 (10:35→18:29)
[2019-06-04] MEDS: ENOXAPARIN SODIUM INJ 40 MG/0.4 ML DISP.SYRIN SUBCUT SCH (10:35)
[2019-06-04] MEDS: GABAPENTIN 100 MG CAPSULE PO SCH ×2 (10:35→21:21)
[2019-06-04] MEDS: NORMAL SALINE 1000 ML 1,000 ML IV PRN (19:47)
--- NOTE | 2019-06-04 20:36 | RADIOLOGY REPORT (SQ) ---
EXAM DESCRIPTION: CT ABDOMEN PELVIS WITH IV CONTRAST COMPLETED DATE/TME: 06/04/2019 00:00 CLINICAL HISTORY: 78 years, Female, abdominal pain, nausea after colostomy reversal COMPARISON: None. TECHNIQUE: Contrast enhanced CT of the abdomen/pelvis was performed. Coronal and sagittal reformations were created. Images stored on PACS. All CT scanners at this facility use dose modulation, iterative reconstruction, and/or weight based dosing when appropriate to reduce radiation dose to as low as reasonably achievable (ALARA). [facility]: Dose Right [facility]: CareDose [facility]: Dose Right [facility]: Teradose 4D [facility]: eIQnetworks LIMITATIONS: None. FINDINGS: Limited evaluation of the lower chest reveals small bilateral right greater than left pleural effusions with associated bibasilar atelectasis. Curvilinear bands of opacity are noted about the right middle lobe as well as the lingula, indicating areas of atelectasis and/or scar. Calcifications are evident about the thoracic aorta. The liver is diffusely low in attenuation relative to the spleen. No focal liver lesions are appreciated. The spleen, pancreas, gallbladder, and both adrenal glands show no suspicious finding. Subcentimeter low-density lesions about both kidneys are too small to accurately characterize. No hydronephrosis or hydroureter. Urinary bladder is well distended and contains a tiny focus of gas density which is nonspecific. Uterus shows no suspicious abnormality. Neither ovary is well visualized. There are postsurgical changes of partial sigmoid colonic resection with primary anastomosis. The large bowel is overall decompressed. There is a tiny hiatal hernia. Otherwise, the small bowel appears diffusely dilated and fluid-filled. There are two transition points identified, both of which are located within the central abdomen. The first transition point is best visualized on image 42 of series 3, involving the jejunum. A second transition point is located slightly more inferiorly within the abdomen (distal ileum), best visualized on image 56 of series 3. The segment of small bowel distal to the final transition point is overall decompressed. Calcifications are evident about the abdominal aorta and proximal iliac vessels. No lymphadenopathy is appreciated. A small amount of free fluid layers dependently within the pelvis. Some of the free fluid within the lower abdomen appears to demonstrate layering intermediate density. Postoperative changes of midline laparotomy are noted with amorphous fluid located within the superficial soft tissues along the midline surgical scar as well as within the left hemiabdomen. In addition, there is a small amount of fluid located within the anterior aspect of the left hemiabdomen on image 54 series 3. This appears to demonstrate a slightly thick wall and measures approximately 8.0 x 0.7 cm in size. There is also a small amount of perihepatic free fluid. Bone windows show no destructive osseous lesions. There is osteopenia. In addition, there is rightward curvature of the lumbar spine. IMPRESSION: Overall, findings are compatible with high-grade small bowel obstruction. Additionally, there are two transition points identified within the mid to lower abdomen, raising the possibility of a closed loop obstruction. Small amount of associated fluid fluid throughout the abdomen/pelvis. In addition, some of the free fluid within the low pelvis appears to demonstrate layering density which could indicate debris. Postoperative changes of partial sigmoid colonic resection with reanastomosis. Overlying surgical skin ramu are noted as well as amorphous fluid within the soft tissues along the midline surgical scar as well as the left hemiabdomen. Small bilateral right greater than left pleural effusions with associated bibasilar atelectasis. Thin fluid collection located along the anterior margins of the left hemiabdomen, presumably also postsurgical in etiology. Suspect hepatic steatosis. TECHNICAL DOCUMENTATION: Quality ID # 436: Final reports with documentation of one or more dose reduction techniques (e.g., Automated exposure control, adjustment of the mA and/or kV according to patient size, use of iterative reconstruction technique) copyright 2011 [employer]- All Rights Reserved
[2019-06-04] MEDS: DEXTROSE 5%-NORMAL SALINE 1,000 ML IV PRN (22:28)
[2019-06-05] MEDS: MORPHINE SULFATE 10 MG/ML INJ IV PRN ×2 (00:53→21:25)
[2019-06-05 04:54] LABS: ABSOLUTE BASOPHILS # (AUTO) 0.1 10^3/uL (0.0-0.2); ABSOLUTE EOSINOPHILS # (AUTO) 0.4 10^3/uL (0.0-0.6); ABSOLUTE LYMPHOCYTES (AUTO) 1.2 10^3/uL (0.5-4.7); ABSOLUTE MONOCYTES (AUTO) 1.4 10^3/uL (0.1-1.4); ABSOLUTE NEUT (AUTO) 9.9 10^3/uL (1.7-8.2); BASOPHILS % (AUTO) 0.5 % (0-2); HEMOGLOBIN 10.2 g/dL (12.0-15.5); MEAN CORPUSCULAR HEMOGLOBIN 31.3 pg (27.0-33.4); MEAN CORPUSCULAR VOLUME 92 fl (80-97); MONOCYTES % (AUTO) 10.6 % (3-13); PLATELET COUNT 624 10^3/uL (150-450); RED BLOOD COUNT 3.26 10^6/uL (3.72-5.28); RED CELL DISTRIBUTION WIDTH 13.1 % (11.5-14.0); SEGMENTED NEUTROPHILS % (AUTO) 76.9 % (42-78); TOTAL CELLS COUNTED % (AUTO) 100 %; WHITE BLOOD COUNT 12.8 10^3/uL (4.0-10.5)
[2019-06-05 05:07] LABS: ANION GAP 13 (5-19); BLOOD UREA NITROGEN 9 mg/dL (7-20); CALCIUM 8.4 mg/dL (8.4-10.2); CARBON DIOXIDE 21 mmol/L (22-30); CHLORIDE 102 mmol/L (98-107); GLUCOSE 97 mg/dL (75-110); POTASSIUM 3.5 mmol/L (3.6-5.0)
[2019-06-05] MEDS: PANTOPRAZOLE SODIUM 40 MG TABLET.DR PO SCH (05:07)
[2019-06-05] MEDS: ENOXAPARIN SODIUM INJ 40 MG/0.4 ML DISP.SYRIN SUBCUT SCH (09:43)
[2019-06-05] MEDS: DOCUSATE SODIUM 100 MG CAPSULE PO SCH ×2 (10:28→19:17)
[2019-06-05] MEDS: DEXTROSE 5%-NORMAL SALINE 1,000 ML IV PRN (10:28)
[2019-06-05] MEDS: GABAPENTIN 100 MG CAPSULE PO SCH ×2 (10:28→21:25)
[2019-06-05] MEDS: DULOXETINE HCL 30 MG CAPSULE.DR PO SCH (10:29)
[2019-06-05] MEDS: TIZANIDINE HCL 4 MG TABLET PO SCH ×3 (10:29→19:18)
[2019-06-05] MEDS: LOSARTAN POTASSIUM 50 MG TABLET PO SCH (10:29)
[2019-06-05] MEDS: LEVOTHYROXINE SODIUM 0.05 MG TABLET PO SCH (14:21)
--- NOTE | 2019-06-05 16:57 | PDOC PROGRESS REPORT ---
Subjective Progress Note for:: 06/05/19 Reason For Visit: S/P COLOSTOMY REVERSAL Physical Exam Vital Signs: Temp Pulse Resp BP Pulse Ox 97.5 F 99 16 160/87 H 95 06/05/19 11:07 06/05/19 11:07 06/05/19 11:07 06/05/19 11:07 06/05/19 11:07 Intake & Output 06/04/19 06/05/19 06/06/19 06:59 06:59 06:59 Intake Total 2443 600 1000 Balance 2443 600 1000 Weight 63.5 kg 64.9 kg Results Laboratory Results: 06/05/19 04:43 06/05/19 04:43 06/05/19 06/05/19 04:43 04:43 WBC 12.8 H RBC 3.26 L Hgb 10.2 L Hct 30.0 L MCV 92 MCH 31.3 MCHC 34.0 RDW 13.1 Plt Count 624 H Seg Neutrophils % 76.9 Sodium 135.8 L Potassium 3.5 L Chloride 102 Carbon Dioxide 21 L Anion Gap 13 BUN 9 Creatinine 0.52 Est GFR ( Amer) > 60 Glucose 97 Calcium 8.4 Impressions: Chest X-Ray 05/18/19 13:18 IMPRESSION: Asymmetric right lower lobe airspace disease as described. Differential includes atelectasis, pneumonia or asymmetric edema. Abdomen X-Ray 06/02/19 00:00 IMPRESSION: 1. No evidence of high-grade obstruction. Few mildly dilated small bowel loops within the central abdomen with associated gas fluid levels. Additional gas noted throughout colonic loops. Findings may represent postoperative ileus versus partial/intermittent obstructive process. 2. Mild patchy right basilar opacities, likely atelectasis. KUB X-Ray 06/03/19 00:00 IMPRESSION: Persistent gaseous distension of small bowel and colon likely an ileus. This is similar compared to 06/02/2019 Abdomen/Pelvis CT 06/04/19 00:00 IMPRESSION: Overall, findings are compatible with high-grade small bowel obstruction. Additionally, there are two transition points identified within the mid to lower abdomen, raising the possibility of a closed loop obstruction. Small amount of associated fluid fluid throughout the abdomen/pelvis. In addition, some of the free fluid within the low pelvis appears to demonstrate layering density which could indicate debris. Postoperative changes of partial sigmoid colonic resection with reanastomosis. Overlying surgical skin ramu are noted as well as amorphous fluid within the soft tissues along the midline surgical scar as well as the left hemiabdomen. Small bilateral right greater than left pleural effusions with associated bibasilar atelectasis. Thin fluid collection located along the anterior margins of the left hemiabdomen, presumably also postsurgical in etiology. Suspect hepatic steatosis. TECHNICAL DOCUMENTATION: Quality ID # 436: Final reports with documentation of one or more dose reduction techniques (e.g., Automated exposure control, adjustment of the mA and/or kV according to patient size, use of iterative reconstruction technique) copyright 2011 [employer]- All Rights Reserved Assessment & Plan - Diagnosis (1) Colostomy present Is this a current diagnosis for this admission?: Yes (2) History of diverticulosis Is this a current diagnosis for this admission?: Yes - Plan Summary Plan Summary: This is a 78-year-old female status post colostomy reversal and repair of a parastomal hernia. She reports that her nausea is improving. Incisions are clean without sign of infection. She reports passing flatus and having a bowel movement this morning. She is alert and oriented. Her abdomen remains soft. The nurse denies vomiting. The pt is more amenable to mobilization today. Cont aggressive pulmonary toilet. Out of bed today, walk in halls. I have reviewed the pt's CT scan. I disagree with the radiologist regarding "evidence for closed loop small bowel obstrction". The patient has a large amount of liquid stool in the right colon with decompression of the transverse and descending colon. If there is a mechanical component to the pt's intestinal dilation, I believe it to be within the transverse colon. The patient reports passing flatus and having BM's after ambulating. Her abdomen is mildly distended with no significant tenderness. She has not had any vomiting. There is no abdominal wall hernia present. There is certainly no clinical evidence of bowel wall compromise or closed loop obstruction. Cont with conservative treatment for ileus. Repeat X-ray tomorrow. Still awaiting return of full bowel function. PT/OT following. D/c planning. DVT prophylaxis with NOLAN/SCD's and Lovenox. Hypokalemia --> Replace potassium
[2019-06-05] MEDS: POTASSI CL 20 MEQ/50 ML RIDER 20 MEQ/50 ML RTUPB IV SCH (21:26)
[2019-06-05] MEDS: ONDANSETRON HCL INJ/PF 4 MG/2 ML SDV IV PRN (21:34)
[2019-06-06] MEDS: POTASSI CL 20 MEQ/50 ML RIDER 20 MEQ/50 ML RTUPB IV SCH (01:19)
[2019-06-06] MEDS: MORPHINE SULFATE 10 MG/ML INJ IV PRN ×4 (03:55→20:25)
[2019-06-06] MEDS: PANTOPRAZOLE SODIUM 40 MG TABLET.DR PO SCH (05:31)
[2019-06-06] MEDS: LEVOTHYROXINE SODIUM 0.05 MG TABLET PO SCH (05:31)
[2019-06-06] MEDS: DEXTROSE 5%-NORMAL SALINE 1,000 ML IV PRN (05:31)
[2019-06-06 06:04] LABS: ABSOLUTE BASOPHILS # (AUTO) 0.1 10^3/uL (0.0-0.2); ABSOLUTE EOSINOPHILS # (AUTO) 0.3 10^3/uL (0.0-0.6); ABSOLUTE LYMPHOCYTES (AUTO) 1.1 10^3/uL (0.5-4.7); ABSOLUTE MONOCYTES (AUTO) 1.2 10^3/uL (0.1-1.4); ABSOLUTE NEUT (AUTO) 11.7 10^3/uL (1.7-8.2); BASOPHILS % (AUTO) 0.6 % (0-2); EOSINOPHILS % (AUTO) 2.3 % (0-6); HEMATOCRIT 30.3 % (36.0-47.0); HEMOGLOBIN 10.4 g/dL (12.0-15.5); LYMPHOCYTES % (AUTO) 7.4 % (13-45); MEAN CORPUSCULAR HEMOGLOBIN 31.6 pg (27.0-33.4); MEAN CORPUSCULAR HGB CONC 34.3 g/dL (32.0-36.0); MEAN CORPUSCULAR VOLUME 92 fl (80-97); MONOCYTES % (AUTO) 8.7 % (3-13); PLATELET COUNT 645 10^3/uL (150-450); RED CELL DISTRIBUTION WIDTH 13.5 % (11.5-14.0); TOTAL CELLS COUNTED % (AUTO) 100 %; WHITE BLOOD COUNT 14.4 10^3/uL (4.0-10.5)
[2019-06-06 06:27] LABS: ANION GAP 11 (5-19); BLOOD UREA NITROGEN 7 mg/dL (7-20); CALCIUM 8.1 mg/dL (8.4-10.2); CARBON DIOXIDE 25 mmol/L (22-30); CHLORIDE 101 mmol/L (98-107); GLUCOSE 86 mg/dL (75-110); POTASSIUM 3.8 mmol/L (3.6-5.0)
--- NOTE | 2019-06-06 08:58 | RADIOLOGY REPORT (SQ) ---
EXAM DESCRIPTION: KUB/ABDOMEN (SINGLE VIEW) COMPLETED DATE/TIME: 06/06/2019 7:55 am REASON FOR STUDY: nausea, distention Z43.3 ENCOUNTER FOR ATTENTION TO COLOSTOMY K43.5 PARASTOMAL H ERNIA WITHOUT OBSTRUCTION OR GANGRENE COMPARISON: 06/03/2019 NUMBER OF VIEWS: One view. TECHNIQUE: Supine radiographic image of the abdomen acquired. LIMITATIONS: None. FINDINGS: BOWEL GAS PATTERN: Stable appearance. Mild dilatation of the colon small bowel. Likely i leus. CALCIFICATIONS: No suspicious calcifications. SOFT TISSUES: No gross mass or suggestion of organomegaly. HARDWARE: Surgical ramu. BONES: Scoliosis and degenerative changes. OTHER: No other significant finding. IMPRESSION: Stable appearance. Likely ileus. TECHNICAL DOCUMENTATION: JOB ID: [id number] [employer]- All Rights Reserved Reading location - IP/workstation name: [email or web address]
[2019-06-06] MEDS: DOCUSATE SODIUM 100 MG CAPSULE PO SCH ×2 (10:02→17:44)
[2019-06-06] MEDS: DULOXETINE HCL 30 MG CAPSULE.DR PO SCH (10:02)
[2019-06-06] MEDS: GABAPENTIN 100 MG CAPSULE PO SCH ×2 (10:03→21:34)
[2019-06-06] MEDS: LOSARTAN POTASSIUM 50 MG TABLET PO SCH (10:03)
[2019-06-06] MEDS: TIZANIDINE HCL 4 MG TABLET PO SCH ×3 (10:04→17:44)
[2019-06-06] MEDS: ENOXAPARIN SODIUM INJ 40 MG/0.4 ML DISP.SYRIN SUBCUT SCH (10:36)
[2019-06-06] MEDS ORDERED: MAGNESIUM SULFATE INJ 8 MEQ/2 ML IV ONE (11:13)
--- NOTE | 2019-06-06 12:35 | PDOC PROGRESS REPORT ---
Subjective Reason For Visit: S/P COLOSTOMY REVERSAL Physical Exam Vital Signs: Temp Pulse Resp BP Pulse Ox 98.0 F 98 17 162/88 H 96 06/06/19 08:00 06/06/19 08:00 06/06/19 08:00 06/06/19 08:00 06/06/19 08:00 Intake & Output 06/05/19 06/06/19 06/07/19 06:59 06:59 06:59 Intake Total 600 2570 Balance 600 2570 Weight 64.9 kg 66.2 kg Results Laboratory Results: 06/06/19 05:01 06/06/19 05:01 06/06/19 06/06/19 05:01 05:01 WBC 14.4 H RBC 3.30 L Hgb 10.4 L Hct 30.3 L MCV 92 MCH 31.6 MCHC 34.3 RDW 13.5 Plt Count 645 H Seg Neutrophils % 81.0 H Sodium 136.5 L Potassium 3.8 Chloride 101 Carbon Dioxide 25 Anion Gap 11 BUN 7 Creatinine 0.50 L Est GFR ( Amer) > 60 Glucose 86 Calcium 8.1 L Magnesium 1.5 L Impressions: Chest X-Ray 05/18/19 13:18 IMPRESSION: Asymmetric right lower lobe airspace disease as described. Differential includes atelectasis, pneumonia or asymmetric edema. Abdomen X-Ray 06/02/19 00:00 IMPRESSION: 1. No evidence of high-grade obstruction. Few mildly dilated small bowel loops within the central abdomen with associated gas fluid levels. Additional gas noted throughout colonic loops. Findings may represent postoperative ileus versus partial/intermittent obstructive process. 2. Mild patchy right basilar opacities, likely atelectasis. Abdomen/Pelvis CT 06/04/19 00:00 IMPRESSION: Overall, findings are compatible with high-grade small bowel obstruction. Additionally, there are two transition points identified within the mid to lower abdomen, raising the possibility of a closed loop obstruction. Small amount of associated fluid fluid throughout the abdomen/pelvis. In addition, some of the free fluid within the low pelvis appears to demonstrate layering density which could indicate debris. Postoperative changes of partial sigmoid colonic resection with reanastomosis. Overlying surgical skin ramu are noted as well as amorphous fluid within the soft tissues along the midline surgical scar as well as the left hemiabdomen. Small bilateral right greater than left pleural effusions with associated bibasilar atelectasis. Thin fluid collection located along the anterior margins of the left hemiabdomen, presumably also postsurgical in etiology. Suspect hepatic steatosis. TECHNICAL DOCUMENTATION: Quality ID # 436: Final reports with documentation of one or more dose reduction techniques (e.g., Automated exposure control, adjustment of the mA and/or kV according to patient size, use of iterative reconstruction technique) copyright 2011 [employer] All Rights Reserved KUB X-Ray 06/06/19 06:00 IMPRESSION: Stable appearance. Likely ileus. Assessment & Plan - Diagnosis (1) Colostomy present Is this a current diagnosis for this admission?: Yes (2) History of diverticulosis Is this a current diagnosis for this admission?: Yes - Plan Summary Plan Summary: This is a 78-year-old female status post colostomy reversal and repair of a parastomal hernia. She reports that her nausea is improving. She has not had any vomiting. Incisions are clean without sign of infection. Her abdomen is still moderately distended, but she reports passing a large amount of flatus and having multiple bowel movements this morning. She is alert and oriented. The pt has been mobilizing. She is tolerating a regular diet. Cont aggressive pulmonary toilet. Out of bed, walk in halls. X-rays show air within the colon. Appearance is stable from previous x-rays. There is currently no clinical evidence of bowel wall compromise or closed loop obstruction. Cont with conservative treatment for ileus (limited oral intake, ambulation, supportive care). PT/OT following. D/c planning. DVT prophylaxis with NOLAN/SCD's and Lovenox. Hypomagnesemia --> Replace magnesium.
[2019-06-06] MEDS: MAGNESIUM SULFATE 1 GM/D5W 100 ML IV SCH ×2 (12:39→16:37)
[2019-06-06] MEDS: ONDANSETRON HCL INJ/PF 4 MG/2 ML SDV IV PRN (12:48)
[2019-06-07] MEDS: MORPHINE SULFATE 10 MG/ML INJ IV PRN ×2 (00:40→05:34)
[2019-06-07] MEDS: LEVOTHYROXINE SODIUM 0.05 MG TABLET PO SCH (05:27)
[2019-06-07] MEDS: PANTOPRAZOLE SODIUM 40 MG TABLET.DR PO SCH (05:27)
[2019-06-07] MEDS: ENOXAPARIN SODIUM INJ 40 MG/0.4 ML DISP.SYRIN SUBCUT SCH (09:35)
[2019-06-07] MEDS: DOCUSATE SODIUM 100 MG CAPSULE PO SCH ×2 (09:50→17:06)
[2019-06-07] MEDS: TIZANIDINE HCL 4 MG TABLET PO SCH ×3 (09:50→17:05)
[2019-06-07] MEDS: GABAPENTIN 100 MG CAPSULE PO SCH ×2 (09:50→21:02)
[2019-06-07] MEDS: LOSARTAN POTASSIUM 50 MG TABLET PO SCH (09:50)
[2019-06-07] MEDS: DULOXETINE HCL 30 MG CAPSULE.DR PO SCH (09:50)
[2019-06-07] MEDS: POLYETHYLENE GLYCOL 3350 POWDER 17 GM/1 PACKET PO SCH ×2 (09:52→17:06)
--- NOTE | 2019-06-07 09:58 | PDOC PROGRESS REPORT ---
Subjective Reason For Visit: S/P COLOSTOMY REVERSAL Physical Exam Vital Signs: Temp Pulse Resp BP Pulse Ox 98.1 F 104 H 18 154/70 H 97 06/07/19 08:04 06/07/19 08:04 06/07/19 08:04 06/07/19 08:04 06/07/19 08:04 Intake & Output 06/06/19 06/07/19 06/08/19 06:59 06:59 06:59 Intake Total 2570 2080 Balance 2570 2080 Weight 66.2 kg 67.7 kg Results Laboratory Results: 06/06/19 05:01 06/06/19 05:01 Impressions: Chest X-Ray 05/18/19 13:18 IMPRESSION: Asymmetric right lower lobe airspace disease as described. Differential includes atelectasis, pneumonia or asymmetric edema. Abdomen X-Ray 06/02/19 00:00 IMPRESSION: 1. No evidence of high-grade obstruction. Few mildly dilated small bowel loops within the central abdomen with associated gas fluid levels. Additional gas noted throughout colonic loops. Findings may represent postoperative ileus versus partial/intermittent obstructive process. 2. Mild patchy right basilar opacities, likely atelectasis. Abdomen/Pelvis CT 06/04/19 00:00 IMPRESSION: Overall, findings are compatible with high-grade small bowel obstruction. Additionally, there are two transition points identified within the mid to lower abdomen, raising the possibility of a closed loop obstruction. Small amount of associated fluid fluid throughout the abdomen/pelvis. In addition, some of the free fluid within the low pelvis appears to demonstrate layering density which could indicate debris. Postoperative changes of partial sigmoid colonic resection with reanastomosis. Overlying surgical skin ramu are noted as well as amorphous fluid within the soft tissues along the midline surgical scar as well as the left hemiabdomen. Small bilateral right greater than left pleural effusions with associated bibasilar atelectasis. Thin fluid collection located along the anterior margins of the left hemiabdomen, presumably also postsurgical in etiology. Suspect hepatic steatosis. TECHNICAL DOCUMENTATION: Quality ID # 436: Final reports with documentation of one or more dose reduction techniques (e.g., Automated exposure control, adjustment of the mA and/or kV according to patient size, use of iterative reconstruction technique) copyright 2011 [employer] All Rights Reserved KUB X-Ray 06/06/19 06:00 IMPRESSION: Stable appearance. Likely ileus. Assessment & Plan - Diagnosis (1) Colostomy present Is this a current diagnosis for this admission?: Yes (2) History of diverticulosis Is this a current diagnosis for this admission?: Yes - Plan Summary Plan Summary: This is a 78-year-old female status post colostomy reversal and repair of a parastomal hernia. She reports that her nausea is improving. She has not had any vomiting. Incisions are clean without sign of infection. Her abdomen is still slightly distended, but she reports passing a large amount of flatus. Her last bowel movement was yesterday. She is alert and oriented. The pt has been mobilizing. She is tolerating a regular diet. Cont aggressive pulmonary toilet. Out of bed, walk in halls. There is currently no clinical evidence of bowel wall compromise or closed loop obstruction. Cont Colace, add MiraLAX. PT/OT following. D/c planning. DVT prophylaxis with NOLAN/SCD's and Lovenox.
[2019-06-07] MEDS ORDERED: HYDRALAZINE HCL INJ/PF 20 MG/1 ML SDV IV PRN (14:30)
[2019-06-07] MEDS: HYDROCODONE/ACETAMINOPHEN 10-325 MG TABLET PO PRN ×2 (17:57→22:27)
[2019-06-08] MEDS: ONDANSETRON HCL INJ/PF 4 MG/2 ML SDV IV PRN ×2 (00:15→14:41)
[2019-06-08] MEDS: HYDROCODONE/ACETAMINOPHEN 10-325 MG TABLET PO PRN ×5 (02:28→22:15)
[2019-06-08] MEDS: PANTOPRAZOLE SODIUM 40 MG TABLET.DR PO SCH (05:57)
[2019-06-08] MEDS: LEVOTHYROXINE SODIUM 0.05 MG TABLET PO SCH (05:58)
[2019-06-08] MEDS ORDERED: INFLUENZA QUAD (6MOS+) 2019-20 VAC 0.5 ML SYR IM ONE (08:45)
[2019-06-08] MEDS: LOSARTAN POTASSIUM 50 MG TABLET PO SCH (09:04)
[2019-06-08] MEDS: DULOXETINE HCL 30 MG CAPSULE.DR PO SCH (09:04)
[2019-06-08] MEDS: DOCUSATE SODIUM 100 MG CAPSULE PO SCH ×2 (09:04→18:23)
[2019-06-08] MEDS: GABAPENTIN 100 MG CAPSULE PO SCH ×2 (09:04→21:14)
[2019-06-08] MEDS: POLYETHYLENE GLYCOL 3350 POWDER 17 GM/1 PACKET PO SCH ×2 (09:05→18:21)
[2019-06-08] MEDS: ENOXAPARIN SODIUM INJ 40 MG/0.4 ML DISP.SYRIN SUBCUT SCH (09:06)
[2019-06-08] MEDS: TIZANIDINE HCL 4 MG TABLET PO SCH ×3 (09:12→18:22)
--- NOTE | 2019-06-08 17:04 | PDOC PROGRESS REPORT ---
Subjective Reason For Visit: S/P COLOSTOMY REVERSAL Physical Exam Vital Signs: Temp Pulse Resp BP Pulse Ox 98.6 F 82 17 131/64 H 96 06/08/19 15:35 06/08/19 15:35 06/08/19 15:35 06/08/19 15:35 06/08/19 15:35 Intake & Output 06/07/19 06/08/19 06/09/19 06:59 06:59 06:59 Intake Total 2079 1200 Balance 2079 1200 Weight 67.7 kg Results Laboratory Results: 06/06/19 05:01 06/06/19 05:01 Impressions: Chest X-Ray 05/18/19 13:18 IMPRESSION: Asymmetric right lower lobe airspace disease as described. Differential includes atelectasis, pneumonia or asymmetric edema. Abdomen X-Ray 06/02/19 00:00 IMPRESSION: 1. No evidence of high-grade obstruction. Few mildly dilated small bowel loops within the central abdomen with associated gas fluid levels. Additional gas noted throughout colonic loops. Findings may represent postoperative ileus versus partial/intermittent obstructive process. 2. Mild patchy right basilar opacities, likely atelectasis. Abdomen/Pelvis CT 06/04/19 00:00 IMPRESSION: Overall, findings are compatible with high-grade small bowel obstruction. Additionally, there are two transition points identified within the mid to lower abdomen, raising the possibility of a closed loop obstruction. Small amount of associated fluid fluid throughout the abdomen/pelvis. In addition, some of the free fluid within the low pelvis appears to demonstrate layering density which could indicate debris. Postoperative changes of partial sigmoid colonic resection with reanastomosis. Overlying surgical skin ramu are noted as well as amorphous fluid within the soft tissues along the midline surgical scar as well as the left hemiabdomen. Small bilateral right greater than left pleural effusions with associated bibasilar atelectasis. Thin fluid collection located along the anterior margins of the left hemiabdomen, presumably also postsurgical in etiology. Suspect hepatic steatosis. TECHNICAL DOCUMENTATION: Quality ID # 436: Final reports with documentation of one or more dose reduction techniques (e.g., Automated exposure control, adjustment of the mA and/or kV according to patient size, use of iterative reconstruction technique) copyright 2011 [employer]- All Rights Reserved KUB X-Ray 06/06/19 06:00 IMPRESSION: Stable appearance. Likely ileus. Assessment & Plan - Diagnosis (1) Colostomy present Is this a current diagnosis for this admission?: Yes (2) History of diverticulosis Is this a current diagnosis for this admission?: Yes - Plan Summary Plan Summary: This is a 78-year-old female status post colostomy reversal and repair of a parastomal hernia. She reports that her nausea is almost completely resolved. She has not had any vomiting. Incisions are clean without sign of infection. Her abdomen is soft and nondistended. She reports passing flatus and having BM's. She is alert and oriented. The pt has been mobilizing. She is tolerating a regular diet. She reports that she cannot go home today. Her son is cleaning and preparing the house for her arrival. Cont aggressive pulmonary toilet. Out of bed, walk in halls. The pt appears to have resumed normal bowel function. PT/OT following. D/c planning. DVT prophylaxis with NOLAN/SCD's and Lovenox. Plan for discharge tomorrow.
[2019-06-09] MEDS: HYDROCODONE/ACETAMINOPHEN 10-325 MG TABLET PO PRN ×3 (02:36→10:49)
[2019-06-09] MEDS: PANTOPRAZOLE SODIUM 40 MG TABLET.DR PO SCH (06:48)
[2019-06-09] MEDS: LEVOTHYROXINE SODIUM 0.05 MG TABLET PO SCH (06:48)
--- NOTE | 2019-06-09 07:11 | PDOC DISCHARGE SUMMARY ---
General - Admit/Disc Date/PCP Admission Date/Primary Care Provider: 05/28/19 05:55 MARGAUX NAVA MD Discharge Date: 06/09/19 - Discharge Diagnosis Final Diagnosis: unwanted colostomy, h/o diverticular bleeding - Assessment Summary: This is a 78-year-old female with a history of diverticular bleeding, requiring Reyes's procedure. The patient has lived with her colostomy for many months now. She presented to the hospital with a request for colostomy reversal. Patient was taken to the operating room where open colostomy reversal with end-to-end colorectal anastomosis was created. The patient tolerated the procedure very well. She was taken to the floor in stable condition. Over the subsequent few days, the patient developed distention and nausea. She was diagn osed with an ileus via x-ray. On postoperative day #[address] scan was performed, which confirmed persistence of her ileus. Over the subsequent 3 to 4 days, the patient's ileus resolved, and she began tolerating a diet. The patient began passing flatus and having bowel movements. By 06/09/2019, the patient was ambulating, tolerating a diet, having bowel movements, and denied nausea/vomiting. It was at this point that she had reached maximal hospital benefit, and was fit for discharge. - Additional Information Resuscitation Status: Full Code Discharge Diet: As Tolerated Discharge Activity: No Lifting Over 10 Pounds, No Lifting/Push/Pulling Referrals: MARGAUX NAVA MD [Primary Care Provider] - Home Medications: Duloxetine HCl [Cymbalta] 90 mg PO DAILY 05/12/18 Pravastatin Sodium [Pravachol] 20 mg PO DAILY 05/12/18 Gabapentin [Neurontin 100 mg Capsule] 100 mg PO Q12 05/18/19 Hydrocodone Bit/Acetaminophen [Hydrocodon-Acetaminophn 10-325] 1 each PO QIDP PRN 05/18/19 Losartan Potassium [Cozaar 50 mg Tablet] 75 mg PO DAILY 05/18/19 Rabeprazole Sodium 20 mg PO BID 05/18/19 Diclofenac Sodium [Voltaren] 2 gm TP TID 05/28/19 Levothyroxine Sodium [Synthroid 50 Mcg Tablet] 50 mcg PO DAILY 05/28/19 Lorazepam [Ativan 0.5 mg Tablet] 0.5 mg PO BID 05/28/19 Zolpidem Tartrate 10 mg PO QHS 05/28/19 Additional Information: Discharge home. Diet as tolerated. Activity: No lifting greater than 10 pounds x 6 weeks after surgery. Follow-up with me in 7 to 10 days in the office. Dry dressing to left lower quadrant incision daily. Okay to shower. [place] 10/325 mg p.o. every 4 hours as needed for pain. Zofran 4 mg ODT, p.o. every 4 hours as needed for nausea. History of Present Illiness History of Present Illness: KATYA BANKS is a 78 year old female Physical Exam Vital Signs: Temp Pulse Resp BP Pulse Ox 98.3 F 86 18 159/79 H 95 06/08/19 23:50 06/08/19 23:50 06/08/19 23:50 06/08/19 23:50 06/08/19 23:50 Intake & Output 06/08/19 06/09/19 06/10/19 06:59 06:59 06:59 Intake Total 1200 1090 Balance 1200 1090 Weight 64.8 kg Results Laboratory Results: WBC 14.4 10^3/uL (4.0-10.5) H 06/06/19 05:01 RBC 3.30 10^6/uL (3.72-5.28) L 06/06/19 05:01 Hgb 10.4 g/dL (12.0-15.5) L 06/06/19 05:01 Hct 30.3 % (36.0-47.0) L 06/06/19 05:01 MCV 92 fl (80-97) 06/06/19 05:01 MCH 31.6 pg (27.0-33.4) 06/06/19 05:01 MCHC 34.3 g/dL (32.0-36.0) 06/06/19 05:01 RDW 13.5 % (11.5-14.0) 06/06/19 05:01 Plt Count 645 10^3/uL (150-450) H 06/06/19 05:01 Lymph % (Auto) 7.4 % (13-45) L 06/06/19 05:01 [place] % (Auto) 8.7 % (3-13) 06/06/19 05:01 Eos % (Auto) 2.3 % (0-6) 06/06/19 05:01 Baso % (Auto) 0.6 % (0-2) 06/06/19 05:01 Absolute Neuts (auto) 11.7 10^3/uL (1.7-8.2) H 06/06/19 05:01 Absolute Lymphs (auto) 1.1 10^3/uL (0.5-4.7) 06/06/19 05:01 Absolute Monos (auto) 1.2 10^3/uL (0.1-1.4) 06/06/19 05:01 Absolute Eos (auto) 0.3 10^3/uL (0.0-0.6) 06/06/19 05:01 Absolute Basos (auto) 0.1 10^3/uL (0.0-0.2) 06/06/19 05:01 Total Counted 100 06/04/19 04:31 Seg Neutrophils % 81.0 % (42-78) H 06/06/19 05:01 Seg Neuts % (Manual) 72 % (42-78) 06/04/19 04:31 Band Neutrophils % 1 % (3-5) L 06/04/19 04:31 Lymphocytes % (Manual) 13 % (13-45) 06/04/19 04:31 Monocytes % (Manual) 11 % (3-13) 06/04/19 04:31 Eosinophils % (Manual) 3 % (0-6) 06/04/19 04:31 Basophils % (Manual) 0 % (0-2) 06/04/19 04:31 Abs Neuts (Manual) 8.8 10^3/uL (1.7-8.2) H 06/04/19 04:31 Abs Lymphs (Manual) 1.6 10^3/uL (0.5-4.7) 06/04/19 04:31 Abs Monocytes (Manual) 1.3 10^3/uL (0.1-1.4) 06/04/19 04:31 Absolute Eos (Manual) 0.4 10^3/uL (0.0-0.6) 06/04/19 04:31 Abs Basophils (Manual) 0.0 10^3/uL (0.0-0.2) 06/04/19 04:31 Platelet Comment INCREASED 06/04/19 04:31 RBC Morph Comment NORMO-CYTIC/CHROMIC 06/04/19 04:31 Sodium 136.5 mmol/L (137-145) L 06/06/19 05:01 Potassium 3.8 mmol/L (3.6-5.0) 06/06/19 05:01 Chloride 101 mmol/L (98-107) 06/06/19 05:01 Carbon Dioxide 25 mmol/L (22-30) 06/06/19 05:01 Anion Gap 11 (5-19) 06/06/19 05:01 BUN 7 mg/dL (7-20) 06/06/19 05:01 Creatinine 0.50 mg/dL (0.52-1.25) L 06/06/19 05:01 Est GFR ( Amer) > 60 (>60) 06/06/19 05:01 Est GFR (MDRD) Non-Af > 60 (>60) 06/06/19 05:01 Glucose 86 mg/dL (75-110) 06/06/19 05:01 POC Glucose 92 mg/dL (70-110) 06/04/19 13:14 Calcium 8.1 mg/dL (8.4-10.2) L 06/06/19 05:01 Magnesium 1.5 mg/dL (1.6-2.3) L 06/06/19 05:01 Total Bilirubin 0.7 mg/dL (0.2-1.3) 05/29/19 05:51 Direct Bilirubin 0.1 mg/dL (0.0-0.4) 05/29/19 05:51 Neonat Total Bilirubin Not Reportable 05/29/19 05:51 Neonat Direct Bilirubin Not Reportable 05/29/19 05:51 Neonat Indirect Bili Not Reportable 05/29/19 05:51 AST 24 U/L (14-36) 05/29/19 05:51 ALT 12 U/L (<35) 05/29/19 05:51 Alkaline Phosphatase 35 U/L (38-126) L 05/29/19 05:51 Total Protein 4.1 g/dL (6.3-8.2) L 05/29/19 05:51 Albumin 2.1 g/dL (3.5-5.0) L 05/29/19 05:51 Impressions: Chest X-Ray 05/18/19 13:18 IMPRESSION: Asymmetric right lower lobe airspace disease as described. Differential includes atelectasis, pneumonia or asymmetric edema. Abdomen X-Ray 06/02/19 00:00 IMPRESSION: 1. No evidence of high-grade obstruction. Few mildly dilated small bowel loops within the central abdomen with associated gas fluid levels. Additional gas noted throughout colonic loops. Findings may represent postoperative ileus versus partial/intermittent obstructive process. 2. Mild patchy right basilar opacities, likely atelectasis. KUB X-Ray 06/03/19 00:00 IMPRESSION: Persistent gaseous distension of small bowel and colon likely an ileus. This is similar compared to 06/02/2019 Abdomen/Pelvis CT 06/04/19 00:00 IMPRESSION: Overall, findings are compatible with high-grade small bowel obstruction. Additionally, there are two transition points identified within the mid to lower abdomen, raising the possibility of a closed loop obstruction. Small amount of associated fluid fluid throughout the abdomen/pelvis. In addition, some of the free fluid within the low pelvis appears to demonstrate layering density which could indicate debris. Postoperative changes of partial sigmoid colonic resection with reanastomosis. Overlying surgical skin ramu are noted as well as amorphous fluid within the soft tissues along the midline surgical scar as well as the left hemiabdomen. Small bilateral right greater than left pleural effusions with associated bibasilar atelectasis. Thin fluid collection located along the anterior margins of the left hemiabdomen, presumably also postsurgical in etiology. Suspect hepatic steatosis. TECHNICAL DOCUMENTATION: Quality ID # 436: Final reports with documentation of one or more dose reduction techniques (e.g., Automated exposure control, adjustment of the mA and/or kV according to patient size, use of iterative reconstruction technique) copyright 2011 [employer]- All Rights Reserved KUB X-Ray 06/06/19 06:00 IMPRESSION: Stable appearance. Likely ileus.
[2019-06-09] MEDS: ONDANSETRON HCL INJ/PF 4 MG/2 ML SDV IV PRN (09:36)
[2019-06-09] MEDS: LOSARTAN POTASSIUM 50 MG TABLET PO SCH (09:41)
[2019-06-09] MEDS: DULOXETINE HCL 30 MG CAPSULE.DR PO SCH (09:44)
[2019-06-09] MEDS: GABAPENTIN 100 MG CAPSULE PO SCH (09:44)
[2019-06-09] MEDS: DOCUSATE SODIUM 100 MG CAPSULE PO SCH (09:45)
[2019-06-09] MEDS: POLYETHYLENE GLYCOL 3350 POWDER 17 GM/1 PACKET PO SCH (09:46)
[2019-06-09 10:37] VITALS: BP 124/86
[2019-06-09] MEDS: ENOXAPARIN SODIUM INJ 40 MG/0.4 ML DISP.SYRIN SUBCUT SCH (11:48)
[2019-06-09] MEDS: TIZANIDINE HCL 4 MG TABLET PO SCH (11:49)
== END 2019-06-09 12:35 | disposition home or self-care (01) | DRG 334 ==
LOC: INOR 05-28 05:55 → 4N 05-28 12:57
PROVIDERS: ADMIT Surgery; ATTEND Surgery
PROC: 0WUF0JZ Supplement Abdominal Wall with Synthetic Substitute, Open Approach (ICD-10-PCS; 2019-05-28)
PROC: 0DBP0ZZ Excision of Rectum, Open Approach (ICD-10-PCS; principal; 2019-05-28 07:30)
PROC: 3E0234Z Introduction of Serum, Toxoid and Vaccine into Muscle, Percutaneous Approach (ICD-10-PCS; 2019-06-09)
DX: Z43.3 Encounter for attention to colostomy (principal); K43.5 Parastomal hernia without obstruction or gangrene; F32.9 Major depressive disorder, single episode, unspecified; E78.00 Pure hypercholesterolemia, unspecified; I10 Essential (primary) hypertension; I89.0 Lymphedema, not elsewhere classified; D64.9 Anemia, unspecified; M41.9 Scoliosis, unspecified; K59.00 Constipation, unspecified; Z23 Encounter for immunization; Z79.899 Other long term (current) drug therapy; Z79.1 Long term (current) use of non-steroidal anti-inflammatories (NSAID); Z79.890 Hormone replacement therapy; Z88.6 Allergy status to analgesic agent; Z88.3 Allergy status to other anti-infective agents; Z85.3 Personal history of malignant neoplasm of breast; Z79.891 Long term (current) use of opiate analgesic; Z87.19 Personal history of other diseases of the digestive system
CPT/HCPCS: 00840; 36415; 71046; 74018; 74019; 74177; 80048; 80053; 82962; 83735; 85025; 85027; 90686; 93005; 93010; 94799; C1781; C9290; J0330; J0360; J0694; J1170; J1741; J1885; J2250; J2270; J2405; J2704; J2710; J3010; J3475; J3480; J3490; J7030; J7042; J7050; J7060; J7120; S0028

== ENCOUNTER 2019-05-25 07:06 | Day surgery (SDC) | payer MEDICARE ==
[~2019-05-25 07:06] MED LIST: LACTATED RINGERS 1000 ML IV PRN; LIDOCAINE 0.5% INJ-PF (5 MG/ML) 50 ML SDV SUBCUT PRN
[2019-05-25] MEDS ORDERED: PROPOFOL INJ 200 MG/20 ML VIAL IV ONE ×2 (07:27→09:59)
--- NOTE | 2019-05-25 07:56 | RADIOLOGY REPORT (SQ) ---
EXAM DESCRIPTION: X-ray single view chest. CLINICAL HISTORY: 78 years Female, PREOP COMPARISON: 04/14/2019. This study from 05/18/2019 was not available for comparison. TECHNIQUE: Single portable x-ray view of the chest performed on 05/25/2019 at 7:27 AM FINDINGS: The lungs are well expanded and are grossly clear. There is chronic scarring in the right inferior hemithorax and there are postsurgical changes in the right lower lung. There is no evidence of a pneumothorax. The cardiac silhouette is normal in size and configuration. The mediastinal contours are normal. No acute osseous abnormality is identified. There are chronic degenerative changes of the left glenohumeral joint. No focal soft tissue abnormalities are seen. Multiple surgical clips project over the region of the left axilla and left breast. Lines and tubes: None. IMPRESSION: 1. Postsurgical changes and chronic scarring in the right inferior hemithorax. 2. Postsurgical changes in the region of the left axilla and left breast. 3. Chronic changes of the left glenohumeral joint.
[2019-05-25] MEDS ORDERED: FAMOTIDINE INJ/PF 20 MG/2 ML SDV IV ONE (08:24)
[2019-05-25] MEDS ORDERED: METOCLOPRAMIDE HCL INJ/PF 10 MG/2 ML SDV ONE (08:24)
[2019-05-25] MEDS ORDERED: ONDANSETRON HCL INJ/PF 4 MG/2 ML SDV IV PRN (09:09)
--- NOTE | 2019-05-25 09:51 | Discharge Summary ---
Discharge Summary (SDC) - Discharge Final Diagnosis: History of diverticular bleeding. Diverticulosis. Inadequate prep. Date of Surgery: 05/25/19 Discharge Date: 05/25/19 Condition: Stable Forms: Sedation D/C Instructions, Discharge POC-Surgical Service Treatment or Instructions: Discharge home. Diet: Full liquids. Activity: Nonstrenuous. Follow-up after surgery. Referrals: SOHAIL JEAN MD [ACTIVE STAFF] - Discharge Diet: Full Liquids Respiratory Treatments at Home: Deep Breathing/Coughing, Incentive Spirometer Discharge Activity: Balance Activity w/Rest Home Care Assistance: None Needed Report the Following to Your Physician Immediately: Shortness of Breath, Nausea, Vomiting, Increase in Pain, Fever over 101 Degrees, Unusual Bleeding
--- NOTE | 2019-05-25 09:56 | Operative Report ---
Nonrecallable Operative Report DATE OF SURGERY: 05/25/19 PREOPERATIVE DIAGNOSIS: History of diverticular bleeding. Unwanted colostomy. POSTOPERATIVE DIAGNOSIS: 1. History of diverticular bleeding. 2. Unwanted colostomy. 3. Large diverticulosis, scattered throughout the sigmoid and descending colon. 4. Inadequate bowel prep, due to patient noncompliance OPERATION: 1. Colonoscopy to the cecum, through the left lower quadrant colostomy. 2. Flexible endoscopy of the rectum, to the area of the staple line, at approximately 18 cm. SURGEON: SOHAIL JEAN ANESTHESIA: LMAC TISSUE REMOVED OR ALTERED: None COMPLICATIONS: Inadequate bowel prep due to patient noncompliance. The patient reports that she did not want to take the bowel prep, "because it made her feel bad". ESTIMATED BLOOD LOSS: None PROCEDURE: Procedure in detail: After informed consent was obtained, the patient was laid in the supine position in the operating room. Patient's left lower quadrant colostomy bag was removed. The colonoscope was inserted into the colostomy. It was inserted up the descending colon, across the transverse colon, down the ascending colon, and into the cecum. The ileocecal valve and appendiceal orifice were identified. The scope was withdrawn, circumferentially noting the mucosa. The prep was very poor. There was solid stool and liquid stool left within the colon. Multiple washings and suctioning's were performed in order to clear the colon of debris. This was approximately 75 to 80% successful. The scope was withdrawn past the ascending colon, transverse colon, descending colon, and out the colostomy. There were scattered, large diverticula throughout the sigmoid and descending colon. There were no large polyps or signs of malignancy. Please note that small polyps could have been missed due to the patient's noncompliance and poor prep. The scope was then inserted into the rectum. A large amount of mucus was found in the rectum. Digital evacuation of the mucus as well as vigorous irrigation was performed. The scope was inserted to approximately 18 cm, at which point the staple line was reached. The scope was then removed from the rectum, and the procedure was concluded. All sponge, instrument, and needle counts were correct x2. Condition: Stable.
[2019-05-25 14:37] VITALS: BP 166/90
== END 2019-05-25 12:15 | disposition home or self-care (01) ==
LOC: OROUT 07:06
PROVIDERS: ATTEND Surgery
DX: K57.30 Diverticulosis of large intestine without perforation or abscess without bleeding (principal); E07.9 Disorder of thyroid, unspecified; Z79.899 Other long term (current) drug therapy; R01.1 Cardiac murmur, unspecified
CPT/HCPCS: 44388; 71045; 00812; G0104; J2765; J2704; S0028; 36415; 45378; 45380; 71046; 80048; 812; 85027; 93005; 93010

== ENCOUNTER 2020-06-15 16:26 | Emergency (ER) | payer MEDICARE ==
[2020-06-15 16:33] VITALS: BP 123/87
--- NOTE | 2020-06-15 17:15 | ER Document Report ---
ED Medical Screen (RME) - General Chief Complaint: Headache Stated Complaint: HEADACHE,FEVER,CAN'T TASTE Time Seen by Provider: 06/15/20 17:07 Primary Care Provider: MARGAUX NAVA MD [Primary Care Provider] - Follow up as needed Mode of Arrival: Ambulatory Information source: Patient Notes: 79-year-old female presents to ED for complaint of feeling bad body aches all over achy sick since last Friday. She states she does have a history of a abdominal surgery without colostomy and then a reversal. She states that she thinks she might have the cover of the flu or something because she has had a fever off and on. She states she lives by herself. She states she does not drink smoke or use any drugs but she did formally smoke. She states she does have a history of high blood pressure. She states she did have one lady come in a claim for but she told her she was sick but she came into cleaned anyway. She is alert oriented respirations regular nonlabored at this time. The patient was evaluated during the global Covid 19 pandemic, and that diagnosis was suspected/considered upon their initial presentation. Their evaluation, treatment and testing was consistent with current guidelines for patients who present with complaints or symptoms that may be related to Covid 19. After performing a Medical Screening Examination, I spoke with the patient at length in regards to leaving the hospital against medical advice. I do not believe the patient should leave but the patient is alert oriented x4, understands the risks and benefits of staying and leaving including disability and . Pt understands that he can return at any time for further care and is more than welcome to do so. Pt verbalizes this understanding. TRAVEL OUTSIDE OF THE [place] IN LAST 30 DAYS: No - Related Data Allergies/Adverse Reactions: aspirin [Aspirin] Allergy (Verified 05/28/19 06:47) salazar stomach codeine [Codeine] Allergy (Verified 05/28/19 06:47) itching erythromycin base [Erythromycin Base] Allergy (Verified 05/28/19 06:47) abd. pain Penicillins Allergy (Verified 05/28/19 06:47) latex Adverse Reaction (Verified 05/28/19 06:47) Past Medical History - Past Medical History Cardiac Medical History: Reports: Hx Hypercholesterolemia, Hx Hypertension, Hx Heart Murmur Denies: Hx Atrial Fibrillation, Hx Congestive Heart Failure, Hx Coronary Artery Disease, Hx Peripheral Vascular Disease Pulmonary Medical History: Denies: Hx Asthma, Hx Bronchitis, Hx COPD, Hx Pneumonia Neurological Medical History: Denies: Hx Cerebrovascular Accident, Hx Seizures Renal/ Medical History: Denies: Hx Peritoneal Dialysis Malignancy Medical History: Reports: Hx Breast Cancer - Last chemo and radiation done in 2011. Denies: Hx Leukemia GI Medical History: Reports: Hx Gastroesophageal Reflux Disease, Hx Hiatal Hernia. Denies: Hx Crohn's Disease, Hx Irritable Bowel, Hx Liver Failure, Hx Pancreatitis, Hx Ulcer Musculoskeltal Medical History: Reports Hx Arthritis - GENERALIZED, Denies Hx Fibromyalgia, Denies Hx Muscular Dystrophy Psychiatric Medical History: Reports: Hx Depression - +anxiety Traumatic Medical History: Reports: Hx Fractures - LEFT ARM Infectious Medical History: Denies: Hx HIV Past Surgical History: Reports: Hx Bowel Surgery - COLON RESECTION WITH COLOSTOMY, Hx Breast Surgery - cancer related, lympn node removal, Hx Colostomy, Hx Tubal Ligation, Other - Right and Left Lumpectomy. 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 Denies: Hx Appendectomy, Hx Section, Hx Cholecystectomy, Hx Coronary Artery Bypass Graft, Hx Gastric Bypass Surgery, Hx Herniorrhaphy, Hx Hysterectomy, Hx Mastectomy - LEFT LUMPECTOMY , Hx Pacemaker, Hx Tonsillectomy - Immunizations Hx Diphtheria, Pertussis, Tetanus Vaccination: No Physical Exam - Vital signs Vitals: Temp Pulse Resp BP Pulse Ox 98.6 F 69 20 123/87 H 98 06/15/20 16:31 06/15/20 16:31 06/15/20 16:31 06/15/20 16:31 06/15/20 16:31 Course - Vital Signs Vital signs: Temp Pulse Resp BP Pulse Ox 98.6 F 69 20 123/87 H 98 06/15/20 16:31 06/15/20 16:31 06/15/20 16:31 06/15/20 16:31 06/15/20 16:31 Doctor's Discharge - Discharge Referrals: MARGAUX NAVA MD [Primary Care Provider] - Follow up as needed
--- NOTE | 2020-06-15 17:39 | RADIOLOGY REPORT (SQ) ---
EXAM DESCRIPTION: CHEST SINGLE VIEW IMAGES COMPLETED DATE/TIME: 06/15/2020 5:29 pm REASON FOR STUDY: short of breath cough COMPARISON: 05/25/2019 TECHNIQUE: Single frontal radiographic view of the chest acquired. NUMBER OF VIEWS: One view. LIMITATIONS: None. FINDINGS: LUNGS AND PLEURA: No pneumothorax. Similar chronic interstitial changes. No consolidatio n or pleural effusion. MEDIASTINUM AND HILAR STRUCTURES: Stable. HEART AND VASCULAR STRUCTURES: Stable. BONES: No acute findings. HARDWARE: Surgical clips from left mastectomy. OTHER: No other significant finding. IMPRESSION: NO ACUTE FINDINGS. TECHNICAL DOCUMENTATION: JOB ID: [id number] [id number] 2010 [employer]- All Rights Reserved Reading location - IP/workstation name: [email or web address]
== END 2020-06-15 22:10 | disposition left against medical advice (07) ==
LOC: ER 16:26
DX: R51.9 Headache, unspecified (principal); R50.9 Fever, unspecified; I10 Essential (primary) hypertension; Z87.891 Personal history of nicotine dependence; Z85.3 Personal history of malignant neoplasm of breast; Z92.21 Personal history of antineoplastic chemotherapy; Z92.3 Personal history of irradiation; Z88.8 Allergy status to other drugs, medicaments and biological substances; Z88.6 Allergy status to analgesic agent; Z88.5 Allergy status to narcotic agent; Z88.1 Allergy status to other antibiotic agents; Z88.0 Allergy status to penicillin; Z20.828 Contact with and (suspected) exposure to other viral communicable diseases; Z53.20 Procedure and treatment not carried out because of patient's decision for unspecified reasons
CPT/HCPCS: 71045; 99281